=== PATIENT | female | born 1940 | race Caucasian/White ===

== ENCOUNTER 2016-11-18 10:43 | Outpatient (CLI) | payer MEDICARE, OTHER ==
[2016-11-18 11:14] LABS: BASOPHILS # (AUTO) 0.1 10^3/uL (0.0-0.1); BASOPHILS % (AUTO) 0.8 %; EOSINOPHILS # (AUTO) 0.4 10^3/uL (0.0-0.7); EOSINOPHILS % (AUTO) 4.8 %; HCT - HEMATOCRIT 37.8 % (37.0-47.0); HGB - HEMOGLOBIN 12.7 g/dL (12.0-16.0); LYMPHOCYTES % (AUTO) 25.1 %; MEAN CORPUSCULAR HGB CONC 33.5 g/dL (32.0-36.0); MEAN CORPUSCULAR VOLUME 86.5 fL (81.0-99.0); MEAN PLATELET VOLUME 9.7 fL (7.9-10.8); MONOCYTES # (AUTO) 0.6 10^3/uL (0.0-1.0); MONOCYTES % (AUTO) 7.7 %; NEUTROPHILS # (AUTO) 4.8 10^3/uL (1.5-6.6); NEUTROPHILS % (AUTO) 61.6 %; RED BLOOD COUNT 4.37 10^6/uL (4.20-5.40); RED CELL DISTRIBUTION WIDTH 15.7 % (12.0-15.0); UNCORRECTED WHITE BLOOD COUNT 7.8 x10^3/uL; WHITE BLOOD COUNT 7.8 x10^3/uL (4.8-10.8)
[2016-11-18 11:39] LABS: HEMOGLOBIN A1C 0.68 g/dL
[2016-11-18 11:41] LABS: BILIRUBIN,TOTAL 0.4 mg/dL (0.2-1.0); BUN - BLOOD UREA NITROGEN 34 mg/dL (6-20); CALCIUM 9.3 mg/dL (8.5-10.3); CARBON DIOXIDE - CO2 23 mmol/L (21-32); CHLORIDE 108 mmol/L (101-111); CREATININE 1.2 mg/dL (0.4-1.0); GFR - MDRD 44 (>89); GLUCOSE 151 mg/dL (70-100); MAGNESIUM 1.6 mg/dL (1.7-2.8); POTASSIUM 4.5 mmol/L (3.5-5.0); SODIUM 141 mmol/L (135-145); TOTAL PROTEIN 6.8 g/dL (6.7-8.2)
[2016-11-18 11:42] LABS: ALBUMIN/GLOBULIN RATIO 1.3 (1.0-2.2); CHOL/HDL RATIO 5.5 (<4.4); CHOLESTEROL 153 mg/dL; HDL CHOLESTEROL 28 mg/dL; LDL/HDL RATIO 2.3 (<4.4); TRIGLYCERIDES 299 mg/dL; VLDL CHOLESTEROL 60 mg/dL
== END 2016-11-18 10:44 | disposition home or self-care (01) ==
LOC: LAB 10:43
PROVIDERS: ATTEND Internal Medicine
DX: E78.2 Mixed hyperlipidemia (principal); Z79.899 Other long term (current) drug therapy; E11.9 Type 2 diabetes mellitus without complications; E83.42 Hypomagnesemia; I25.10 Atherosclerotic heart disease of native coronary artery without angina pectoris; N18.9 Chronic kidney disease, unspecified; I12.9 Hypertensive chronic kidney disease with stage 1 through stage 4 chronic kidney disease, or unspecified chronic kidney disease
CPT/HCPCS: 36415; 80053; 80061; 82306; 83036; 83735; 85025

== ENCOUNTER 2017-02-01 13:03 | Outpatient (CLI) | payer MEDICARE, OTHER ==
[2017-02-01 13:50] LABS: ALBUMIN/GLOBULIN RATIO 1.2 (1.0-2.2); BILIRUBIN,TOTAL 0.7 mg/dL (0.2-1.0); BUN - BLOOD UREA NITROGEN 44 mg/dL (6-20); CALCIUM 9.6 mg/dL (8.5-10.3); CARBON DIOXIDE - CO2 23 mmol/L (21-32); CHLORIDE 106 mmol/L (101-111); CHOL/HDL RATIO 5.2 (<4.4); CHOLESTEROL 165 mg/dL; CREATININE 1.4 mg/dL (0.4-1.0); GFR - MDRD 37 (>89); GLUCOSE 110 mg/dL (70-100); HDL CHOLESTEROL 32 mg/dL; LDL/HDL RATIO 2.7 (<4.4); SODIUM 139 mmol/L (135-145); TOTAL PROTEIN 7.6 g/dL (6.7-8.2); TRIGLYCERIDES 237 mg/dL; VLDL CHOLESTEROL 47 mg/dL
[2017-02-01 13:51] LABS: POTASSIUM 4.6 mmol/L (3.5-5.0)
== END 2017-02-01 13:04 | disposition home or self-care (01) ==
LOC: LAB 13:03
PROVIDERS: ATTEND Internal Medicine Cardiovascular Disease
DX: I25.10 Atherosclerotic heart disease of native coronary artery without angina pectoris (principal); I42.9 Cardiomyopathy, unspecified; I10 Essential (primary) hypertension; E78.5 Hyperlipidemia, unspecified; E83.42 Hypomagnesemia
CPT/HCPCS: 36415; 80053; 80061

== ENCOUNTER 2017-02-07 11:58 | Outpatient (CLI) | payer MEDICARE, OTHER ==
[2017-02-07 12:49] LABS: GLUCOSE,FASTING 126 mg/dL (70-100); TRIGLYCERIDES 210 mg/dL
[2017-02-07 13:20] LABS: HEMOGLOBIN A1C 0.69 g/dL
== END 2017-02-07 11:59 | disposition home or self-care (01) ==
LOC: LAB 11:58
PROVIDERS: ATTEND Nurse Practitioner Primary Care
DX: E11.9 Type 2 diabetes mellitus without complications (principal); E78.1 Pure hyperglyceridemia
CPT/HCPCS: 36415; 82947; 83001; 83036; 84478

== ENCOUNTER 2017-03-21 09:13 | Outpatient (CLI) | payer MEDICARE, OTHER ==
--- NOTE | 2017-03-21 14:57 | DEXA Report ---
DEXA SCAN: 03/21/2017 CLINICAL INDICATION: Postmenopausal. TECHNIQUE: Dual energy x-ray absorptiometry (DXA) was performed on a [employer] system. Regions measured are the AP spine, femoral neck, and, if needed, forearm. COMPARISON: None. In accordance with the International Society for Clinical Densitometry (ISCD) guidelines, data from previous exams may be reanalyzed using current recommendations and techniques. This is done to allow a more accurate basis for comparison with the current study. FINDINGS: The data for the lumbar spine is as follows: REGION BMD (g/cm/cm) T-SCORE Z-SCORE L1 1.213 0.7 1.3 L2 1.355 1.3 1.9 L3 1.468 2.2 2.8 L4 1.490 2.4 3.0 TOTAL 1.385 1.7 2.3 NOTE: All evaluable vertebrae are used for classification. The data for the hip is as follows: REGION BMD (g/cm/cm) T-SCORE Z-SCORE Neck 1.133 0.7 1.9 TOTAL 1.221 1.7 2.6 NOTE: The femoral neck or total proximal femur, whichever is lowest, is used for classification. IMPRESSION: THE WHO CLASSIFICATION BASED ON THE INTERNATIONAL REFERENCE STANDARD IS NORMAL. THE FRACTURE RISK IS NOT INCREASED. RECOMMENDATION: Patients with diagnosis of osteoporosis or osteopenia should have regular bone mineral density assessment. For those eligible for Medicare, routine testing is allowed once every 2 years. Testing frequency can be increased for patients who have rapidly progressing disease or for those who are receiving medical therapy to restore bone mass. COMMENT: World Health Organization (WHO) definitions for osteoporosis and osteopenia: NORMAL BMD: T-score at -1.0 or higher, fracture risk is low. OSTEOPENIA BMD: T-score between -1.0 and -2.5, fracture risk is increased. OSTEOPOROSIS BMD: T-score at -2.5 or lower, fracture risk high. National Osteoporosis Foundation recommends: 1. Obtain adequate dietary calcium (at least 1200 mg per day) and vitamin D (400 -800 international units per day). 2. Participate, as appropriate, in regular weightbearing and muscle- strengthening exercise. 3. Avoid tobacco use and reduce alcohol and caffeine intake. 4. For more detailed information see the website at www.NOF.org. MTDD
== END 2017-03-21 09:14 | disposition home or self-care (01) ==
LOC: DI 09:13
PROVIDERS: ATTEND Nurse Practitioner Primary Care
DX: Z78.0 Asymptomatic menopausal state (principal)
CPT/HCPCS: 77080

== ENCOUNTER 2017-03-21 09:14 | Outpatient (CLI) | payer MEDICARE, OTHER ==
--- NOTE | 2017-03-22 18:49 | Mammography Report ---
DIGITAL SCREENING MAMMOGRAM: 03/21/2017 CLINICAL INDICATION: A 76-year-old with family history of breast cancer, history of benign right jesús ast biopsy for screening. COMPARISON: 02/2016, 01/2015, 01/2014, 01/2013, 01/2012, 01/2011, 01/2010 TECHNIQUE: Routine CC and MLO projections were obtained of the breasts. FINDINGS: The breasts again demonstrate heterogeneously dense fibroglandular parenchyma bilaterally. There is a shifting pattern of circumscribed nodules bilaterally, compatible with waxing and waning cysts. Coarse and punctate, typically benign calcifications are present. No suspicious masses, clu stered microcalcifications, or regions of architectural distortion are identified. IMPRESSION: BENIGN FINDINGS. RECOMMENDATION: Routine annual screening unless otherwise clinically indicated. BI-RADS category 2, benign findings. STANDARD QUALIFYING STATEMENTS 1. This examination was reviewed with the aid of Computer-Aided Detection (CAD). 2. A negative or benign imaging report should not delay biopsy if clinically suspicious findings are present. Consider surgical consultation if warranted. More than 5% of cancers are not identified by i maging. 3. Dense breasts may obscure an underlying neoplasm. JOB #: [id number] EXT JOB #:[id number]
== END 2017-03-21 09:15 | disposition home or self-care (01) ==
LOC: DI 09:14
PROVIDERS: ATTEND Nurse Practitioner Primary Care
DX: Z12.31 Encounter for screening mammogram for malignant neoplasm of breast (principal)
CPT/HCPCS: 77067

== ENCOUNTER 2017-04-03 13:20 | Outpatient (CLI) | payer MEDICARE, OTHER | END 2017-04-03 13:21 | disposition home or self-care (01) | LOC: SC 13:20 | PROVIDERS: ATTEND Nurse Practitioner Family | DX: G47.33 Obstructive sleep apnea (adult) (pediatric) (principal) | CPT/HCPCS: 99214; G0463; 99212 ==

== ENCOUNTER 2017-04-17 11:42 | Outpatient (CLI) | payer MEDICARE, OTHER ==
[2017-04-17 12:37] LABS: ALBUMIN/GLOBULIN RATIO 1.1 (1.0-2.2); BILIRUBIN,TOTAL 0.7 mg/dL (0.2-1.0); BUN - BLOOD UREA NITROGEN 36 mg/dL (6-20); CARBON DIOXIDE - CO2 23 mmol/L (21-32); CHLORIDE 106 mmol/L (101-111); CHOL/HDL RATIO 3.6 (<4.4); CHOLESTEROL 127 mg/dL; CREATININE 0.9 mg/dL (0.4-1.0); GFR - MDRD 61 (>89); GLUCOSE 115 mg/dL (70-100); HDL CHOLESTEROL 35 mg/dL; LDL/HDL RATIO 1.8 (<4.4); POTASSIUM 3.9 mmol/L (3.5-5.0); SODIUM 140 mmol/L (135-145); TOTAL PROTEIN 7.5 g/dL (6.7-8.2); TRIGLYCERIDES 152 mg/dL; VLDL CHOLESTEROL 30 mg/dL
== END 2017-04-17 11:43 | disposition home or self-care (01) ==
LOC: LAB 11:42
PROVIDERS: ATTEND Internal Medicine Cardiovascular Disease
DX: I25.10 Atherosclerotic heart disease of native coronary artery without angina pectoris (principal); I10 Essential (primary) hypertension; E78.5 Hyperlipidemia, unspecified
CPT/HCPCS: 36415; 80053; 80061

== ENCOUNTER 2017-06-25 08:10 | Emergency (ER) | payer MEDICARE, OTHER ==
[2017-06-25] MEDS ORDERED: HYDROcod/ACETAM 5/325 MG TABLET PO STA (08:48)
--- NOTE | 2017-06-25 08:50 | ED Physician Documentation ---
PD HPI HEENT - Stated complaint Stated Complaint: DENTAL PAIN - Chief complaint Chief Complaint: Heent - History obtained from History obtained from: Patient, Family - History of Present Illness Timing - onset: How many weeks ago (2) Timing - duration: Weeks (2) Timing - details: Gradual onset, Still present Location: Tooth Improves: Nothing Associated symptoms: Facial swelling. No: Fever, Congestion, Headache Similar symptoms before: Diagnosis (bad tooth) Recently seen: Other (root canal) - Additional information Additional information: 76-year-old female began to have a toothache in a tooth that she has a crown on about 2 weeks ago. About 1 week ago the pain dramatically increased she went to see her dentist was put on some antibiotic and 2 days ago she had a root canal done on this tooth. She has not had relief of her pain in her pain feels worse. Review of Systems Constitutional: denies: Fever Eyes: denies: Decreased vision Ears: denies: Ear pain Nose: denies: Rhinorrhea / runny nose, Congestion Throat: reports: Dental pain / toothache Cardiac: denies: Chest pain / pressure, Palpitations Respiratory: denies: Dyspnea, Cough GI: denies: Abdominal Pain, Nausea, Vomiting, Constipation, Diarrhea : denies: Dysuria Musculoskeletal: denies: Neck pain, Back pain, Extremity pain Neurologic: denies: Generalized weakness, Focal weakness, Numbness PD PAST MEDICAL HISTORY - Past Medical History Cardiovascular: Hypertension, High cholesterol, Coronary artery disease, Deep vein thrombosis, Angina, Other Respiratory: Asthma, Pneumonia, Sleep apnea Endocrine/Autoimmune: Type 2 diabetes GI: GERD, Hiatal hernia : Incontinence HEENT: Chronic vision loss Psych: Depression Musculoskeletal: Osteoarthritis, Fibromyalgia, Chronic back pain Derm: None - Past Surgical History Past Surgical History: Yes General: Cholecystectomy, Appendectomy, Colonoscopy, EGD Cardiovascular: Coronary stent HEENT: Cataracts - Present Medications Home Medications: Ambulatory Orders Medication Instructions Recorded Confirmed Aspirin [Aspir 81] 81 mg ORAL DAILY 03/25/14 06/25/17 Atenolol [Tenormin] 50 mg ORAL BID 03/25/14 06/25/17 Fesoterodine Fumarate [Toviaz] 4 mg PO DAILY 03/25/14 06/25/17 Furosemide [Lasix] 40 mg ORAL DAILY 03/25/14 06/25/17 Insulin Glargine [Lantus] 65 units SUBQ BID 03/25/14 06/25/17 Insulin Lispro [Humalog] 15 - 25 units SUBQ TIDWM 03/25/14 06/25/17 Losartan [Cozaar] 25 mg ORAL DAILY 03/25/14 06/25/17 Montelukast [Singulair] 10 mg ORAL DAILY 03/25/14 06/25/17 Pantoprazole Sodium 40 mg ORAL DAILY 03/25/14 06/25/17 Rosuvastatin Calcium [Crestor] 20 mg ORAL DAILY 03/25/14 06/25/17 Sertraline [Zoloft] 50 mg ORAL DAILY 03/25/14 06/25/17 raNITIdine [Zantac] 150 mg ORAL DAILY 03/25/14 06/25/17 LORazepam [Lorazepam] 1 mg PO DAILY 03/26/14 06/25/17 Hydrocodone/Acetaminophen [[place] 1 each PO Q6H PRN #25 tablet 10/07/14 06/25/17 5-325 Tablet] Methocarbamol [Robaxin] 500 mg PO Q6H PRN #25 tablet 10/07/14 06/25/17 Mirabegron [Myrbetriq] 50 tab PO DAILY 10/07/14 06/25/17 Naproxen 500 mg PO BID #14 tablet. 10/07/14 06/25/17 Carvedilol [Coreg] 12.5 mg PO BID 09/02/15 06/25/17 Clindamycin [Cleocin] 300 mg PO Q6H 7 Days #56 capsule 06/25/17 HYDROcod/ACETAM 5/325 [[place] 5/325] 1 - 2 ea PO Q6H PRN #15 tablet 06/25/17 - Allergies Allergies/Adverse Reactions: Allergies Allergy/AdvReac Type Severity Reaction Status Date / Time amoxicillin trihydrate * Allergy Emesis Verified 06/25/17 08:16 [From Augmentin] clopidogrel bisulfate * Allergy Itching Verified 06/25/17 08:16 [From Plavix] iodine Allergy Itching Verified 06/25/17 08:16 meperidine HCl * Allergy Itching Verified 06/25/17 08:16 [From Demerol] oxybutynin Allergy Itching Verified 06/25/17 08:16 potassium clavulanate * Allergy Itching Verified 06/25/17 08:16 [From Augmentin] rosiglitazone maleate * Allergy Itching Verified 06/25/17 08:16 [From Avandia] exenatide [From [place]etta] AdvReac Unknown Verified 06/25/17 08:16 metformin AdvReac Unknown Verified 06/25/17 08:16 - Social History Does the pt smoke?: No Smoking Status: Never smoker Does the pt drink ETOH?: Yes Does the pt have substance abuse?: No PD ED PE NORMAL - Vitals Vital signs reviewed: Yes (Hypertensive) - General General: Alert and oriented X 3, No acute distress, Well developed/nourished - HEENT HEENT: Atraumatic, PERRL, EOMI, Other (Over tooth #7 anteriorly there is swelling to the gingiva without drainage. The area is tender as well. The backside of the tooth shows a portion of amalgam with a central drilled that does not show any drainage.) - Neck Neck: Supple, no meningeal sign - Respiratory Respiratory: No respiratory distress - Derm Derm: Normal color, Warm and dry, No rash - Extremities Extremities: No deformity, No edema - Neuro Neuro: Alert and oriented X 3, No motor deficit, No sensory deficit, Normal speech Eye Opening: Spontaneous Motor: Obeys Commands Verbal: Oriented GCS Score: 15 - Psych Psych: Normal mood, Normal affect PD ED PE EXPANDED - HEENT HEENT Visual: 1 - swelling, tenderness Results - Vitals Vitals: Vital Signs - 24 hr 06/25/17 08:12 Temperature 36.2 C L Heart Rate 68 Respiratory 20 Rate Blood Pressure 167/73 H O2 Saturation 96 Oxygen O2 Source Room air PD MEDICAL DECISION MAKING - ED course Complexity details: considered differential, d/w patient, d/w family ED course: 76-year-old female with a dental infection is not improving with amoxicillin. She is having significant pain does not have adequate pain relief. Here in the emergency department she is given 5 mg of hydrocodone and we will place her on some clindamycin. Departure - Departure Disposition: 01 Home, Self Care Clinical Impression: Dental infection Condition: Stable Instructions: ED Tooth Pain Follow-Up: Renato Esqueda ARNP [Primary Care Provider] - Prescriptions: Clindamycin [Cleocin] 300 mg PO Q6H 7 Days #56 capsule HYDROcod/ACETAM 5/325 [[place] 5/325] 1 - 2 ea PO Q6H PRN #15 tablet PRN Reason: Pain
[2017-06-25 09:12] VITALS: BP 156/72
== END 2017-06-25 09:08 | disposition home or self-care (01) ==
LOC: ED 08:10
DX: K04.7 Periapical abscess without sinus (principal); I10 Essential (primary) hypertension; E11.9 Type 2 diabetes mellitus without complications; Z79.4 Long term (current) use of insulin; I25.10 Atherosclerotic heart disease of native coronary artery without angina pectoris; J45.909 Unspecified asthma, uncomplicated; M79.7 Fibromyalgia; K21.9 Gastro-esophageal reflux disease without esophagitis; M19.90 Unspecified osteoarthritis, unspecified site; Z79.82 Long term (current) use of aspirin; Z86.718 Personal history of other venous thrombosis and embolism
CPT/HCPCS: 99283; A9270

== ENCOUNTER 2017-07-07 14:03 | Outpatient (CLI) | payer MEDICARE, OTHER ==
--- NOTE | 2017-07-11 15:17 | XRAY Report ---
DATE OF SERVICE: 07/07/2017 TWO VIEW THORACIC SPINE: 07/07/2017 CLINICAL INDICATION: Severe pain. FINDINGS: Frontal, lateral views of the thoracic spine are compared to previous films of 05/01/2015. Moderate degenerative disk disease is stable. There is no evidence of interval fracture. No paraspi nal hematoma is seen. IMPRESSION: Stable moderate degenerative disk disease. TD: 07/07/2017 22:48
--- NOTE | 2017-07-11 15:17 | XRAY Report ---
DATE OF SERVICE: 07/07/2017 THREE VIEW LUMBAR SPINE:: 07/07/2017 CLINICAL INDICATION: Pain. FINDINGS: AP, lateral, cone-down views of the lumbar spine demonstrate moderate degenerative disk an d facet disease. Alignment is normal. There is no evidence of fracture or subluxation. The bowel gas patte rn is unremarkable. Surgical clips of cholecystectomy are incidentally noted. IMPRESSION: Moderate degenerative disk and facet disease. No evidence of fracture. TD: 07/07/2017 22:49
--- NOTE | 2017-07-11 15:18 | XRAY Report ---
DATE OF SERVICE: 07/07/2017 THREE VIEW CERVICAL SPINE: 07/07/2017 CLINICAL INDICATION: Severe pain. COMPARISON: 05/01/2015 FINDINGS: AP, lateral, odontoid views of the cervical spine demonstrate stable degenerative disk and facet disease. There is no evidence of acute fracture. The prevertebral soft tissues are unremarkable. IMPRESSION: Stable moderate degenerative changes. TD: 07/07/2017 22:46
== END 2017-07-07 14:04 | disposition home or self-care (01) ==
LOC: DI 14:03
PROVIDERS: ATTEND Chiropractor
DX: M51.36 Other intervertebral disc degeneration, lumbar region (principal); M47.896 Other spondylosis, lumbar region; M51.34 Other intervertebral disc degeneration, thoracic region; M50.30 Other cervical disc degeneration, unspecified cervical region; M47.892 Other spondylosis, cervical region
CPT/HCPCS: 72040; 72070; 72100

== ENCOUNTER 2017-08-24 11:42 | Outpatient (CLI) | payer MEDICARE, OTHER ==
[2017-08-24 12:22] LABS: HB2 TOTAL 14.2 g/dL; HEMOGLOBIN A1C 0.7 g/dL; HEMOGLOBIN A1C % 6.7 % (4.6-6.2)
== END 2017-08-24 11:43 | disposition home or self-care (01) ==
LOC: LAB 11:42
PROVIDERS: ATTEND Nurse Practitioner Primary Care
DX: E11.9 Type 2 diabetes mellitus without complications (principal)
CPT/HCPCS: 36415; 83036

== ENCOUNTER 2017-10-20 16:36 | Outpatient (CLI) | payer MEDICARE, OTHER ==
--- NOTE | 2017-10-21 17:13 | MRI Report ---
EXAM: MRI LUMBAR SPINE WITHOUT CONTRAST COMPARISON: Conventional radiographs, totaling 03/29/2017. CLINICAL HISTORY: L4-L5 radicular pain.Low-back pain radiating down the left leg, no numbness. TECHNIQUE: Multiplanar multisequence imaging is performed through the lumbar spine without contrast. FINDINGS: Evaluation of alignment shows 6 mm retrolisthesis L5 on S1. Conus terminates at the upper aspect of L1, conus is unremarkable. No pathologic marrow replacement is identified. No retroperitoneal adenopathy or masses. Visualized abdominal aorta is of normal caliber. 3 cm right-sided exophytic renal cyst (601, 23) is incompletely characterized, follow-up renal ultras ound is suggested. Dorsal soft tissues are relatively unremarkable. Disk Levels: L1-L2. No significant canal or foraminal stenosis. L2-L3: Mild disk height loss. Mild facet arthropathy. No significant canal or foraminal stenosis. L3-L4: Moderate disk height loss. At least moderate bilateral facet arthropathy. No significant tim inal stenosis. Minimal canal stenosis. There is left-sided asymmetric far lateral disk and osteophyte (601, 17), does displace the exited left nerve root. L4-L5: Moderate disk height loss. Mild to moderate bilateral facet arthropathy. Mild right and minima l left foraminal stenosis. No significant canal stenosis. L5-S1: Moderate to severe disk height loss. Mild to moderate bilateral facet arthropathy. Central dis k protrusion (601, 4) does contact but not displace or compress the passing S1 nerve roots, left grea ter than right. Foraminal stenosis is minimal on the right, minimal on the left. IMPRESSION: No high-grade canal or foraminal stenosis at any level. Central disk protrusion at L5-S1 does not cause significant canal stenosis, but does contact the pass ing S1 nerve roots, left greater than right. Referring Provider Line: [phone] SITE ID: [id number]
== END 2017-10-20 16:37 | disposition home or self-care (01) ==
LOC: DI 16:36
PROVIDERS: ATTEND Orthopaedic Surgery
DX: M51.36 Other intervertebral disc degeneration, lumbar region (principal); M47.896 Other spondylosis, lumbar region; M51.27 Other intervertebral disc displacement, lumbosacral region
CPT/HCPCS: 72148

== ENCOUNTER 2018-02-25 14:28 | Emergency (ER) | payer MEDICARE, OTHER ==
[2018-02-25 15:30] LABS: BASOPHILS # (AUTO) 0.1 10^3/uL (0.0-0.1); BASOPHILS % (AUTO) 0.6 %; EOSINOPHILS # (AUTO) 0.2 10^3/uL (0.0-0.7); EOSINOPHILS % (AUTO) 2.3 %; HGB - HEMOGLOBIN 11.9 g/dL (12.0-16.0); LYMPHOCYTES # (AUTO) 1.7 10^3/uL (1.5-3.5); LYMPHOCYTES % (AUTO) 17.4 %; MEAN CORPUSCULAR HEMOGLOBIN 29.5 pg (27.0-31.0); MEAN CORPUSCULAR HGB CONC 33.7 g/dL (32.0-36.0); MEAN CORPUSCULAR VOLUME 87.7 fL (81.0-99.0); MEAN PLATELET VOLUME 8.6 fL (7.9-10.8); MONOCYTES # (AUTO) 0.7 10^3/uL (0.0-1.0); MONOCYTES % (AUTO) 6.9 %; NEUTROPHILS # (AUTO) 6.9 10^3/uL (1.5-6.6); NEUTROPHILS % (AUTO) 72.8 %; PLT - PLATELET COUNT 264 10^3/uL (130-450); RED BLOOD COUNT 4.03 10^6/uL (4.20-5.40); RED CELL DISTRIBUTION WIDTH 15.9 % (12.0-15.0); WHITE BLOOD COUNT 9.5 x10^3/uL (4.8-10.8)
--- NOTE | 2018-02-25 15:32 | XRAY Report ---
Procedure Date: 02/25/2018 Accession Number: [id number] / [id number] Procedure: XR - Chest 1 View X-Ray CPT Code: 68641 FULL RESULT: EXAM: CHEST RADIOGRAPHY. EXAM DATE: 02/25/2018 03:15 PM. CLINICAL HISTORY: Shortness of air, postoperative. COMPARISON: 09/15/2014. TECHNIQUE: 1 view. FINDINGS: Lungs/Pleura: Mild blunting of the left costophrenic angle. Mildly elevated right hemidiaphragm is unchanged. No consolidation or pneumothorax. Mediastinum: Mild cardiac enlargement. Other: None. IMPRESSION: 1. Mild cardiac enlargement. 2. Probable small left pleural effusion noted. 3. No consolidation, edema or pneumothorax. RADIA
[2018-02-25] MEDS ORDERED: DEXAMETHASONE 10 MG/ML VIAL IVP STA (15:34)
[2018-02-25] MEDS ORDERED: diphenhydrAMINE INJ 50 MG/ML VIAL IVP STA (15:34)
--- NOTE | 2018-02-25 15:38 | ED Physician Documentation ---
History of Present Illness - Stated complaint Stated Complaint: POST OP SOA - Chief complaint Chief Complaint: Resp - History obtained from History obtained from: Patient, Family - History of Present Illness Pain level max: 0 Pain level now: 0 Improved by: CPAP, lasix Worsened by: lying flat, walking. - Additonal information Additional information: Patient is a 77-year-old female who presents to the emergency department complaining of increasing shortness of breath over the past few days. She is one-week status post a L4-5 left hemilaminectomy and L5-S1 interbody fusion. This was performed with Dr. Brumfield at [facility]. She states she took an extra dose of Lasix and her urination did increase, but she is still feeling short of breath. States she feels better with her CPAP on. Does not wear oxygen at home usually. Has not had any fevers. No calf pain. Review of Systems Ten Systems: 10 systems reviewed and negative Constitutional: denies: Fever, Chills Ears: denies: Ear pain Nose: denies: Rhinorrhea / runny nose, Congestion Throat: denies: Sore throat Cardiac: denies: Chest pain / pressure GI: denies: Nausea, Vomiting, Diarrhea Skin: denies: Rash Musculoskeletal: reports: Back pain. denies: Neck pain Neurologic: denies: Headache PD PAST MEDICAL HISTORY - Past Medical History Cardiovascular: Hypertension, High cholesterol, Coronary artery disease, Deep vein thrombosis, Angina, Other Respiratory: Asthma, Pneumonia, Sleep apnea Endocrine/Autoimmune: Type 2 diabetes GI: GERD, Hiatal hernia : Incontinence HEENT: Chronic vision loss Psych: Depression Musculoskeletal: Osteoarthritis, Fibromyalgia, Chronic back pain Derm: None - Past Surgical History Past Surgical History: Yes General: Cholecystectomy, Appendectomy, Colonoscopy, EGD Cardiovascular: Coronary stent HEENT: Cataracts - Present Medications Home Medications: Ambulatory Orders Medication Instructions Recorded Confirmed Aspirin [Aspir 81] 81 mg ORAL DAILY 03/25/14 06/25/17 Atenolol [Tenormin] 50 mg ORAL BID 03/25/14 06/25/17 Fesoterodine Fumarate [Toviaz] 4 mg PO DAILY 03/25/14 06/25/17 Furosemide [Lasix] 40 mg ORAL DAILY 03/25/14 06/25/17 Insulin Glargine [Lantus] 65 units SUBQ BID 03/25/14 06/25/17 Insulin Lispro [Humalog] 15 - 25 units SUBQ TIDWM 03/25/14 06/25/17 Losartan [Cozaar] 25 mg ORAL DAILY 03/25/14 06/25/17 Montelukast [Singulair] 10 mg ORAL DAILY 03/25/14 06/25/17 Pantoprazole Sodium 40 mg ORAL DAILY 03/25/14 06/25/17 Rosuvastatin Calcium [Crestor] 20 mg ORAL DAILY 03/25/14 06/25/17 Sertraline [Zoloft] 50 mg ORAL DAILY 03/25/14 06/25/17 raNITIdine [Zantac] 150 mg ORAL DAILY 03/25/14 06/25/17 LORazepam [Lorazepam] 1 mg PO DAILY 03/26/14 06/25/17 Hydrocodone/Acetaminophen [[place] 1 each PO Q6H PRN #25 tablet 10/07/14 06/25/17 5-325 Tablet] Methocarbamol [Robaxin] 500 mg PO Q6H PRN #25 tablet 10/07/14 06/25/17 Mirabegron [Myrbetriq] 50 tab PO DAILY 10/07/14 06/25/17 Naproxen 500 mg PO BID #14 tablet. 10/07/14 06/25/17 Carvedilol [Coreg] 12.5 mg PO BID 09/02/15 06/25/17 Clindamycin [Cleocin] 300 mg PO Q6H 7 Days #56 capsule 06/25/17 HYDROcod/ACETAM 5/325 [[place] 5/325] 1 - 2 ea PO Q6H PRN #15 tablet 06/25/17 Rivaroxaban [Xarelto] 15 mg PO BID #42 tablet 02/25/18 - Allergies Allergies/Adverse Reactions: Allergies Allergy/AdvReac Type Severity Reaction Status Date / Time amoxicillin trihydrate * Allergy Emesis Verified 06/25/17 08:16 [From Augmentin] clopidogrel bisulfate * Allergy Itching Verified 06/25/17 08:16 [From Plavix] iodine Allergy Itching Verified 06/25/17 08:16 meperidine HCl * Allergy Itching Verified 06/25/17 08:16 [From Demerol] oxybutynin Allergy Itching Verified 06/25/17 08:16 potassium clavulanate * Allergy Itching Verified 06/25/17 08:16 [From Augmentin] rosiglitazone maleate * Allergy Itching Verified 06/25/17 08:16 [From Avandia] exenatide [From Byetta] AdvReac Unknown Verified 06/25/17 08:16 metformin AdvReac Unknown Verified 02/25/18 15:01 - Social History Does the pt smoke?: No Smoking Status: Never smoker Does the pt drink ETOH?: Yes Does the pt have substance abuse?: No PD ED PE NORMAL - Vitals Vital signs reviewed: Yes - General General: Alert and oriented X 3, No acute distress, Other (obese female) - HEENT HEENT: PERRL, Moist mucous membranes - Neck Neck: Supple, no meningeal sign - Cardiac Cardiac: RRR, Strong equal pulses - Respiratory Respiratory: No respiratory distress, Other (mild rhonchi B) - Abdomen Abdomen: Soft, Non tender, Non distended - Back Back: Other (dressing in place, clean. No signs of infection) - Derm Derm: Warm and dry - Extremities Extremities: Other (2+ B LE edema) - Neuro Neuro: Alert and oriented X 3 - Psych Psych: Normal mood, Normal affect Results - Vitals Vitals: Vital Signs - 24 hr 02/25/18 02/25/18 14:56 17:50 Temperature 36.8 C Heart Rate 62 69 Respiratory 18 14 Rate Blood Pressure 142/73 H 157/72 H O2 Saturation 94 95 Oxygen O2 Source Room air - EKG (time done) 1526 Rate: Rate (enter#) (66) Rhythm: NSR, Other (PVC) [place]: Normal Intervals: 1st degree AVB QRS: Normal Ischemia: Non specific changes - Labs Labs: Laboratory Tests 02/25/18 02/25/18 02/25/18 15:24 15:24 15:24 WBC 9.5 RBC 4.03 L Hgb 11.9 L Hct 35.4 L MCV 87.7 MCH 29.5 MCHC 33.7 RDW 15.9 H Plt Count 264 MPV 8.6 Neut # (Auto) 6.9 H Lymph # (Auto) 1.7 [place] # (Auto) 0.7 Eos # (Auto) 0.2 Baso # (Auto) 0.1 Absolute Nucleated RBC 0.01 Nucleated RBC % 0.1 Sodium 139 Potassium 4.2 Chloride 99 L Carbon Dioxide 29 Anion Gap 11.0 BUN 29 H Creatinine 0.9 Estimated GFR (MDRD) 61 L Glucose 129 H Calcium 9.5 Total Bilirubin 0.7 AST 25 ALT 13 Alkaline Phosphatase 79 Troponin I B-Natriuretic Peptide 388 H Total Protein 6.8 Albumin 3.2 Globulin 3.6 Albumin/Globulin Ratio 0.9 L Lipase 26 02/25/18 15:25 WBC RBC Hgb Hct MCV MCH MCHC RDW Plt Count MPV Neut # (Auto) Lymph # (Auto) [place] # (Auto) Eos # (Auto) Baso # (Auto) Absolute Nucleated RBC Nucleated RBC % Sodium Potassium Chloride Carbon Dioxide Anion Gap BUN Creatinine Estimated GFR (MDRD) Glucose Calcium Total Bilirubin AST ALT Alkaline Phosphatase Troponin I < 0.04 B-Natriuretic Peptide Total Protein Albumin Globulin Albumin/Globulin Ratio Lipase - Rads (name of study) cxr Radiology: Prelim report reviewed, EMP read contemporaneously, See rad report ( Mild cardiac enlargement. Probable small left pleural effusion noted. No consolidation edema or pneumothorax.) ctpa Radiology: Prelim report reviewed, EMP read contemporaneously, See rad report ( Single small right lower lobe segmental branch pulmonary embolism. Small bilateral pleural effusions. Small hiatal hernia) PD MEDICAL DECISION MAKING - ED course Complexity details: reviewed results, re-evaluated patient, considered differential, d/w patient, d/w family ED course: Patient is a 77-year-old female who presents to the emergency department with shortness of air after recent surgery on her lumbar spine. She does have CHF and was given an extra dose of Lasix. Also found to have a single small pulmonary embolism in the right lower lobe. No right heart strain. No hypoxia. No respiratory distress. Discussed with the patient and family and we will start her on Xarelto and have her follow-up as an outpatient with her doctor. She is well-appearing, nontoxic. Discussed risks and benefits of Xarelto versus Lovenox bridging with warfarin. Patient and family counseled regarding signs and symptoms for which I believe and urgent re-evaluation would be necessary. Patient with good understanding of and agreement to plan and is comfortable going home at this time This document was made in part using voice recognition software. While efforts are made to proofread this document, sound alike and grammatical errors may occur. - Sepsis Event Vital Signs: Vital Signs - 24 hr 02/25/18 02/25/18 14:56 17:50 Temperature 36.8 C Heart Rate 62 69 Respiratory 18 14 Rate Blood Pressure 142/73 H 157/72 H O2 Saturation 94 95 Oxygen O2 Source Room air Departure - Departure Disposition: 01 Home, Self Care Clinical Impression: Pulmonary embolism Qualifiers: Pulmonary embolism type: other Chronicity: acute Acute cor pulmonale presence: without acute cor pulmonale Qualified Code(s): I26.99 - Other pulmonary embolism without acute cor pulmonale CHF (congestive heart failure) Qualifiers: Heart failure type: unspecified Heart failure chronicity: acute on chronic Qualified Code(s): I50.9 - Heart failure, unspecified Condition: Good Instructions: Embolism Pulmonary Dc, ED CHF General Follow-Up: Renato Esqueda ARNP [Primary Care Provider] - Within 1 week Prescriptions: Rivaroxaban [Xarelto] 15 mg PO BID #42 tablet Comments: You have been started on Xarelto, 15 mg by mouth twice a day for the first 21 days. After this time you will be on 20 mg once daily. You will likely need to be on this for 6 months. Return if you worsen. Return especially if you notice any signs of bleeding, fall and hit your head are involved in a car accident. You should also avoid nonsteroidal anti-inflammatory medication such as Motrin and Aleve. Discharge Date/Time: 02/25/18 18:00
[2018-02-25 15:39] LABS: ALBUMIN 3.2 g/dL (3.2-5.5); ALBUMIN/GLOBULIN RATIO 0.9 (1.0-2.2); BILIRUBIN,TOTAL 0.7 mg/dL (0.2-1.0); CALCIUM 9.5 mg/dL (8.5-10.3); CREATININE 0.9 mg/dL (0.4-1.0); TOTAL PROTEIN 6.8 g/dL (6.7-8.2)
[2018-02-25] MEDS ORDERED: IOPAMIDOL-300 100 ML VIAL ONE (15:56)
[2018-02-25] MEDS ORDERED: IOPAMIDOL-300 100 ML VIAL IVP ONE (16:50)
--- NOTE | 2018-02-25 17:21 | CT Report ---
Procedure Date: 02/25/2018 Accession Number: [id number] / [id number] Procedure: CT - Chest Angio (PE) CPT Code: FULL RESULT: EXAM: CT ANGIOGRAM CHEST EXAM DATE: 02/25/2018 05:08 PM. CLINICAL HISTORY: Post op dyspnea, pt premedicated. COMPARISON: None. TECHNIQUE: Routine helical imaging was performed through the chest in the pulmonary arterial phase. IV Contrast: ISOVUE 300 80mL. Reconstructions: Coronal 3-D MIP reconstructions.Sagittal and coronal. In accordance with CT protocol optimization, one or more of the following dose reduction techniques were utilized for this exam: automated exposure control, adjustment of mA and/or KV based on patient size, or use of iterative reconstructive technique. FINDINGS: Pulmonary Arteries: Diagnostic quality: Adequate through the segmental arteries. There is a single right lower lobe segmental pulmonary artery filling defect. No other emboli seen. RV/LV is within normal limits. There is no interventricular septal bowing. There is no reflux of contrast material in the IVC. Lungs/Pleura: Small bilateral pleural effusions. Mediastinum: Normal. No cardiac enlargement or adenopathy. Thoracic Aorta: Unremarkable. Upper Abdomen: The gallbladder has been removed. Other: Small hiatal hernia. IMPRESSION: 1. Single small, right lower lobe segmental branch pulmonary embolism. 2. Small bilateral pleural effusions. 3. Small hiatal hernia. RADIA
[2018-02-25] MEDS ORDERED: FUROSEMIDE 20 MG/2 ML VIAL IVP STA (17:31)
[2018-02-25] MEDS ORDERED: RIVAROXABAN 15 MG TABLET PO STA (17:31)
[2018-02-25 17:51] VITALS: BP 157/72
== END 2018-02-25 18:00 | disposition home or self-care (01) ==
LOC: ED 14:28
DX: I26.99 Other pulmonary embolism without acute cor pulmonale (principal); I50.9 Heart failure, unspecified; E11.9 Type 2 diabetes mellitus without complications; I44.0 Atrioventricular block, first degree; Z79.82 Long term (current) use of aspirin; Z79.4 Long term (current) use of insulin
CPT/HCPCS: 36415; 71045; 71275; 80053; 83690; 83880; 84484; 85025; 93005; 96374; 96375; 99283; 99284; A9270; J1200; Q9967

== ENCOUNTER 2018-03-02 10:52 | Outpatient (CLI) | payer MEDICARE, OTHER ==
[2018-03-02 11:42] LABS: BASOPHILS % (AUTO) 0.4 %; EOSINOPHILS # (AUTO) 0.4 10^3/uL (0.0-0.7); EOSINOPHILS % (AUTO) 4.1 %; HGB - HEMOGLOBIN 12.7 g/dL (12.0-16.0); LYMPHOCYTES # (AUTO) 2.3 10^3/uL (1.5-3.5); LYMPHOCYTES % (AUTO) 24.5 %; MEAN CORPUSCULAR HEMOGLOBIN 29.6 pg (27.0-31.0); MEAN CORPUSCULAR HGB CONC 33.8 g/dL (32.0-36.0); MEAN CORPUSCULAR VOLUME 87.7 fL (81.0-99.0); MEAN PLATELET VOLUME 8.3 fL (7.9-10.8); MONOCYTES # (AUTO) 0.6 10^3/uL (0.0-1.0); MONOCYTES % (AUTO) 6.4 %; NEUTROPHILS % (AUTO) 64.6 %; PLT - PLATELET COUNT 297 10^3/uL (130-450); RED BLOOD COUNT 4.29 10^6/uL (4.20-5.40); RED CELL DISTRIBUTION WIDTH 15.8 % (12.0-15.0); WHITE BLOOD COUNT 9.3 x10^3/uL (4.8-10.8)
[2018-03-02 12:08] LABS: ALBUMIN 3.3 g/dL (3.2-5.5); ALKALINE PHOSPHATASE 80 IU/L (42-121); ALT ALANINE AMINOTRANSFERASE 11 IU/L (10-60); AST ASPARTATE AMINOTRANSFERASE 22 IU/L (10-42); BILIRUBIN,TOTAL 0.4 mg/dL (0.2-1.0); BUN - BLOOD UREA NITROGEN 22 mg/dL (6-20); CALCIUM 8.8 mg/dL (8.5-10.3); CARBON DIOXIDE - CO2 25 mmol/L (21-32); CHLORIDE 106 mmol/L (101-111); CHOLESTEROL 131 mg/dL; GFR - MDRD 54 (>89); GLUCOSE 117 mg/dL (70-100); HDL CHOLESTEROL 33 mg/dL; LDL CHOLESTEROL,CALCULATED 63 mg/dL; LDL/HDL RATIO 1.9 (<4.4); MAGNESIUM 1.6 mg/dL (1.7-2.8); SODIUM 140 mmol/L (135-145); TOTAL PROTEIN 6.5 g/dL (6.7-8.2); VLDL CHOLESTEROL 35 mg/dL
[2018-03-02 13:29] LABS: HB2 TOTAL 13.5 g/dL; HEMOGLOBIN A1C 0.63 g/dL; HEMOGLOBIN A1C % 6.4 % (4.6-6.2)
== END 2018-03-02 10:53 | disposition home or self-care (01) ==
LOC: LAB 10:52
PROVIDERS: ATTEND Nurse Practitioner Primary Care
DX: E78.5 Hyperlipidemia, unspecified (principal); E11.22 Type 2 diabetes mellitus with diabetic chronic kidney disease; I12.9 Hypertensive chronic kidney disease with stage 1 through stage 4 chronic kidney disease, or unspecified chronic kidney disease; N18.2 Chronic kidney disease, stage 2 (mild); I25.10 Atherosclerotic heart disease of native coronary artery without angina pectoris; E83.42 Hypomagnesemia
CPT/HCPCS: 36415; 80053; 80061; 82306; 83036; 83721; 83735; 84443; 85025

== ENCOUNTER 2018-03-26 12:50 | Outpatient (CLI) | payer MEDICARE, OTHER ==
--- NOTE | 2018-03-28 10:25 | Mammography Report ---
Reason: SCREENING MAMMO Procedure Date: 03/26/2018 Accession Number: [id number] / [id number] Procedure: DAPHNE - Screening Mammo Dig Bilat CPT Code: FULL RESULT: EXAM: Screening Mammo Dig Bilat DATE: 03/26/2018 1:22 PM CLINICAL HISTORY: 77-year-old female with history of breast biopsy and family history of breast cancer in the mother at age 86, sisters at age 42 and 33, an aunt at age 89, and a cousin at age 65. TECHNIQUE: Bilateral CC and MLO views were obtained. COMPARISON: 03/21/2017, 02/25/2016, 01/08/2015, 01/17/2014. FINDINGS: The breasts demonstrate heterogeneously dense fibroglandular parenchyma bilaterally. There are large rodlike calcifications as well as coarse calcifications in both breasts which are typically benign. Stable typically benign appearing intramammary lymph nodes are seen bilaterally. No suspicious masses, clustered microcalcifications, or regions of architectural distortion are identified. IMPRESSION: Benign findings RECOMMENDATION: Routine annual screening unless otherwise clinically indicated. BIRADS CATEGORY 2: Benign findings STANDARD QUALIFYING STATEMENTS: 1. This examination was reviewed without the aid of Computer-Aided Detection (CAD). 2. A negative or benign imaging report should not delay biopsy if clinically suspicious findings are present. Consider surgical consultation if warrented. More than 5% of cancers are not identified by imaging. 3. Dense breasts may obscure an underlying neoplasm.
== END 2018-03-26 12:51 | disposition home or self-care (01) ==
LOC: DI 12:50
PROVIDERS: ATTEND Nurse Practitioner Primary Care
DX: Z12.31 Encounter for screening mammogram for malignant neoplasm of breast (principal); Z80.3 Family history of malignant neoplasm of breast
CPT/HCPCS: 77067

== ENCOUNTER 2018-04-09 14:16 | Outpatient (CLI) | payer MEDICARE, OTHER | END 2018-04-09 14:17 | disposition home or self-care (01) | LOC: SC 14:16 | PROVIDERS: ATTEND Internal Medicine Pulmonary Disease | DX: G47.33 Obstructive sleep apnea (adult) (pediatric) (principal) | CPT/HCPCS: 99213; G0463; 99212 ==

== ENCOUNTER 2018-08-25 11:22 | Outpatient (CLI) | payer MEDICARE, OTHER ==
[2018-08-25 12:00] LABS: HB2 TOTAL 14.4 g/dL; HEMOGLOBIN A1C 0.64 g/dL; HEMOGLOBIN A1C % 6.2 % (4.6-6.2)
== END 2018-08-25 11:23 | disposition home or self-care (01) ==
LOC: LAB 11:22
PROVIDERS: ATTEND Nurse Practitioner Primary Care
DX: E11.9 Type 2 diabetes mellitus without complications (principal)
CPT/HCPCS: 36415; 82043; 82947; 83036

== ENCOUNTER 2018-11-29 10:20 | Outpatient (CLI) | payer MEDICARE, OTHER ==
[2018-11-29 10:47] LABS: HGB - HEMOGLOBIN 12.5 g/dL (12.0-16.0); MEAN CORPUSCULAR HEMOGLOBIN 28.5 pg (27.0-31.0); MEAN CORPUSCULAR HGB CONC 32.8 g/dL (32.0-36.0); MEAN CORPUSCULAR VOLUME 86.7 fL (81.0-99.0); MEAN PLATELET VOLUME 8.5 fL (7.9-10.8); RED BLOOD COUNT 4.4 10^6/uL (4.20-5.40); RED CELL DISTRIBUTION WIDTH 15.6 % (12.0-15.0)
[2018-11-29 10:58] LABS: CALCIUM 9.3 mg/dL (8.5-10.3)
--- NOTE | 2018-11-29 11:45 | XRAY Report ---
Reason: R09.89, M54.5, J45.998, I50.9,COARSE RESPIRATORY Procedure Date: 11/29/2018 Accession Number: [id number] / [id number] Procedure: XR - Chest 2 View X-Ray CPT Code: 51041 FULL RESULT: EXAM: CHEST RADIOGRAPHY EXAM DATE: 11/29/2018 10:34 AM. CLINICAL HISTORY: Coarse respiratory sounds. COMPARISON: CHEST 1 VIEW 02/25/2018 3:05 PM. TECHNIQUE: 1 view. FINDINGS: Lungs/Pleura: Blunting of the left costophrenic angle is again seen, suggestive of a trace effusion. Aerated lungs are without lobar consolidation or suspicious mass detected. There is no pulmonary edema. There is no sizable pneumothorax. Mediastinum: Within exam limitations, the cardiomediastinal contour is stable, mild cardiomegaly. Other: The bones are qualitatively osteopenic; this limits evaluation for underlying fractures or masses. IMPRESSION: No acute airspace disease is detected, persistent trace left pleural effusion. RADIA
== END 2018-11-29 10:21 | disposition home or self-care (01) ==
LOC: LAB 10:20 → DI 10:21
PROVIDERS: ATTEND Family Medicine
DX: R09.89 Other specified symptoms and signs involving the circulatory and respiratory systems (principal); I50.9 Heart failure, unspecified; J45.998 Other asthma; M54.5 Low back pain
CPT/HCPCS: 36415; 71046; 80048; 83880; 85027

== ENCOUNTER 2018-12-05 14:26 | Outpatient (CLI) | payer MEDICARE, OTHER ==
[2018-12-05 18:19] LABS: BILIRUBIN,URINE NEGATIVE (NEGATIVE); GLUCOSE, URINE (UA) NEGATIVE (NEGATIVE); KETONES,URINE (UA) NEGATIVE (NEGATIVE); LEUKOCYTE ESTERASE, URINE NEGATIVE (NEGATIVE); NITRITE,URINE NEGATIVE (NEGATIVE); OCCULT BLOOD,URINE NEGATIVE (NEGATIVE); PROTEIN,URINE NEGATIVE (NEGATIVE); UROBILINOGEN,URINE 0.2 (NORMAL) E.U./dL (NORMAL)
[2018-12-05 18:20] LABS: CLARITY,URINE CLEAR (CLEAR)
[2018-12-05 18:49] LABS: BACTERIA,URINE Rare /HPF (None Seen); RBC,URINE 0-5 /HPF (0-5); SQUAMOUS EPITHELIAL CELL,UR RARE Squamous (<= Few)
== END 2018-12-05 14:27 | disposition home or self-care (01) ==
LOC: LAB 14:26
PROVIDERS: ATTEND Urology
DX: N39.41 Urge incontinence (principal); R35.1 Nocturia
CPT/HCPCS: 81001; 87086

== ENCOUNTER 2019-01-16 11:30 | Outpatient (CLI) | payer MEDICARE, OTHER ==
[2019-01-16 12:06] LABS: ALBUMIN 3.6 g/dL (3.2-5.5); ALKALINE PHOSPHATASE 84 IU/L (42-121); ALT ALANINE AMINOTRANSFERASE 15 IU/L (10-60); AST ASPARTATE AMINOTRANSFERASE 32 IU/L (10-42); BILIRUBIN,TOTAL 0.8 mg/dL (0.2-1.0); BUN - BLOOD UREA NITROGEN 30 mg/dL (6-20); CARBON DIOXIDE - CO2 25 mmol/L (21-32); CHLORIDE 104 mmol/L (101-111); CHOL/HDL RATIO 4.2 (<4.4); CHOLESTEROL 143 mg/dL; GFR - MDRD 54 (>89); GLUCOSE 141 mg/dL (70-100); HDL CHOLESTEROL 34 mg/dL; LDL CHOLESTEROL,CALCULATED 76 mg/dL; LDL/HDL RATIO 2.2 (<4.4); SODIUM 142 mmol/L (135-145); TOTAL PROTEIN 7.3 g/dL (6.7-8.2); VLDL CHOLESTEROL 33 mg/dL
== END 2019-01-16 11:31 | disposition home or self-care (01) ==
LOC: LAB 11:30
PROVIDERS: ATTEND Internal Medicine Cardiovascular Disease
DX: I25.10 Atherosclerotic heart disease of native coronary artery without angina pectoris (principal)
CPT/HCPCS: 36415; 80053; 80061; 83721

== ENCOUNTER 2019-05-24 16:28 | Outpatient (CLI) | payer MEDICARE, OTHER ==
--- NOTE | 2019-05-27 09:09 | Mammography Report ---
Reason: SCREENING MAMMO Procedure Date: 05/24/2019 Accession Number: [id number] / [id number] Procedure: DAPHNE - Screening Mammo w/Lilo CPT Code: Final Report FULL RESULT: EXAM: Screening Mammo w/Lilo DATE: 05/24/2019 5:14 PM CLINICAL HISTORY: Screening encounter. Family history of breast cancer in the mother at the age of 86, a sister at the age of 34, a sister at the age of 42. History of benign right breast biopsy. TECHNIQUE: (B) - Bilateral CC and MLO views were obtained. COMPARISON: 03/26/2018 through 07/13/2009. PARENCHYMAL PATTERN: (A) - The breast(s) demonstrate(s) scattered fibroglandular densities. FINDINGS: Typically benign coarse calcifications are again seen. The benign large rodlike calcific ends again seen. Bilateral breasts demonstrate a waxing and waning pattern of numerous well-circumscribed isodense nodules over time without associated architectural distortion, suspicious calcifications, typically benign cystic pattern. In the right breast medially, seen on CC projection 6.3 cm from the nipple, lilo image 31, is increasing focal nodularity which likely corresponds to right MLO upper breast nodules best seen on MLO total image 40. This should be further characterized by focused right breast ultrasound. In the right breast 5.5 cm from the nipple is a newly increasing well circumscribed nodule which potentially represents a cyst but also needs additional evaluation by focused right breast ultrasound. There are no suspicious masses, calcifications, or areas of distortion in the left breast. IMPRESSION: Incomplete examination. BI-RADS category 0. RECOMMENDATION: (ADDUS) - Targeted ultrasound recommended. Right breast BI-RADS CATEGORY: (0) - Incomplete Examination - need additional evaluation. STANDARD QUALIFYING STATEMENTS: 1. This examination was not reviewed with the aid of Computer-Aided Detection (CAD). 2. A negative or benign imaging report should not preclude biopsy if clinically suspicious findings are present. 3. Dense breasts may obscure an underlying neoplasm. 4. This examination was reviewed with the aid of 3D breast imaging (tomosynthesis).
== END 2019-05-24 16:29 | disposition home or self-care (01) ==
LOC: DI 16:28
DX: Z12.31 Encounter for screening mammogram for malignant neoplasm of breast (principal); R92.1 Mammographic calcification found on diagnostic imaging of breast; R92.8 Other abnormal and inconclusive findings on diagnostic imaging of breast; Z80.3 Family history of malignant neoplasm of breast
CPT/HCPCS: 77063; 77067

== ENCOUNTER 2019-06-17 11:42 | Outpatient (CLI) | payer MEDICARE, OTHER ==
--- NOTE | 2019-06-17 14:57 | Ultrasound Report ---
Reason: ABN MAMMO - RT SPEC VIEW US Procedure Date: 06/17/2019 Accession Number: [id number] / [id number] Procedure: US - Breast Unilateral Limited CPT Code: Final Report FULL RESULT: EXAM: Breast Unilateral Limited DATE: 06/17/2019 1:20 PM CLINICAL HISTORY: ABN MAMMO - RT SPEC VIEW US COMPARISON: None. TECHNIQUE: Targeted ultrasound was performed of the right breast in the area of clinical concern at 1 and 3 o'clock and variable distance from the nipple. Color Doppler was employed as appropriate. FINDINGS: Multiple cysts without solid components are identified which correspond to the mammographic findings. No suspicious architectural distortion or mass is seen. IMPRESSION: Benign findings RECOMMENDATION: Recommend routine annual Screening mammography unless otherwise clinically indicated. BIRADS CATEGORY 2: Benign findings RADIA
== END 2019-06-17 11:43 | disposition home or self-care (01) ==
LOC: DI 11:42
PROVIDERS: ATTEND Family Medicine
DX: N60.11 Diffuse cystic mastopathy of right breast (principal)
CPT/HCPCS: 76642

== ENCOUNTER 2019-07-02 12:46 | Outpatient (CLI) | payer MEDICARE, OTHER ==
[2019-07-02 13:11] LABS: CALCIUM 9.4 mg/dL (8.5-10.3); CREATININE 1.1 mg/dL (0.4-1.0)
[2019-07-02 13:17] LABS: HB2 TOTAL 13.1 g/dL; HEMOGLOBIN A1C 0.71 g/dL; HEMOGLOBIN A1C % 7.1 % (4.6-6.2)
== END 2019-07-02 12:47 | disposition home or self-care (01) ==
LOC: LAB 12:46
PROVIDERS: ATTEND Family Medicine
DX: E11.59 Type 2 diabetes mellitus with other circulatory complications (principal)
CPT/HCPCS: 36415; 80048; 83036

== ENCOUNTER 2019-08-19 17:26 | Outpatient (CLI) | payer MEDICARE, OTHER ==
--- NOTE | 2019-08-20 15:33 | XRAY Report ---
Reason: COARSE RESPIRATORY CRACKLES, ASTHMA Procedure Date: 08/19/2019 Accession Number: [id number] / [id number] Procedure: XR - Chest 2 View X-Ray CPT Code: 48204 Final Report FULL RESULT: EXAM: CHEST RADIOGRAPHY EXAM DATE: 08/19/2019 05:57 PM. CLINICAL HISTORY: Coarse respiratory crackles, asthma. COMPARISON: CHEST 2 VIEW 11/29/2018 10:34 AM. TECHNIQUE: 2 views. FINDINGS: Lungs/Pleura: No focal opacities evident. No pleural effusion. No pneumothorax. Normal volumes. Mediastinum: The left heart is mildly enlarged as before. Other: None. IMPRESSION: 1. No focal consolidation, effusions or edema. 2. Mild left heart enlargement unchanged. RADIA
== END 2019-08-19 17:27 | disposition home or self-care (01) ==
LOC: DI 17:26
PROVIDERS: ATTEND Family Medicine
DX: R09.89 Other specified symptoms and signs involving the circulatory and respiratory systems (principal); J45.998 Other asthma; I51.7 Cardiomegaly
CPT/HCPCS: 71046

== ENCOUNTER 2019-10-08 12:50 | Outpatient (CLI) | payer MEDICARE, OTHER ==
[2019-10-08 13:41] LABS: CALCIUM 8.6 mg/dL (8.5-10.3); CREATININE 1.2 mg/dL (0.4-1.0)
[2019-10-08 14:13] LABS: HB2 TOTAL 13.4 g/dL; HEMOGLOBIN A1C 0.6 g/dL; HEMOGLOBIN A1C % 6.2 % (4.6-6.2)
== END 2019-10-08 12:51 | disposition home or self-care (01) ==
LOC: LAB 12:50
PROVIDERS: ATTEND Family Medicine
DX: E11.9 Type 2 diabetes mellitus without complications (principal)
CPT/HCPCS: 36415; 80048; 83036

== ENCOUNTER 2019-10-08 14:53 | Outpatient (CLI) | payer MEDICARE, OTHER ==
--- NOTE | 2019-10-08 14:51 | SLEEP CARE CONSULTATION ---
Information from patient questionnaire entered by Joan Sidhu. I have reviewed and concur with the information entered by Joan Sidhu. This document represents the service I personally performed and the decisions made by me, Braydon Butcher MD, [facility]. History of Present Illness Previous diagnosis: Mild, Obstructive Sleep Apnea-Hypopnea Syndrome AHI: 8.3 Reason for follow up: first compliance after device update Equipment type: CPAP Equipment obtained from: [facility] additional information: To minimize the risk of COVID-19 exposure, we have the option to conduct your visit with me over the phone. I will be able to discuss your health and offer medical advice. If you agree, we will bill your insurance. Do you agree to this telephone service: YES. HPI: Ms. López was called today to follow up on nasal CPAP therapy. She was diagnosed to have mild obstructive sleep apnea-hypopnea syndrome. The patient wears with a Respironics DreamWear full face mask. [employer] is her durable medical supplier. She reports using the device nightly and all through the night. The compliance data show usage in 28 out of the past 30 nights, averaging 10.8 hours a night. The > 4 hour compliance rate for the past 30 days is 93.3%. She complained of no particular problem with the device such as soreness on the face, dry nose, epistaxis, nasal congestion or headache. She thinks that the pressure of 10 cmH2O is comfortable (she did not like lower pressures). On the CPAP therapy she notices improvement in her sleep quality, and that she wakes up feeling fresher in the morning and more awake/alert during the day. Her notices no snore at all. The average residual AHI is 1.2 and average time in large leak per day is 42 minutes. CPAP Compliance Data - Data Reviewed with Patient Average duration of nightly device use: 10.8 Compliance rate %: 93.3 Current pressure setting (cmH2O): 10 Humidity settin Heated hose settin Average residual AHI: 1.2 Average large leak: 41 min 49 sec Subjective Initial [place] Sleepiness Scale score: 10 Allergies and Home Medications Drug allergies reviewed: Yes Home medication list reviewed: Yes Review of Systems Review of systems same as previous: Yes Physical Exam Height: 5 ft 8 in Impression and Plan IMPRESSION: 1. Obstructive Sleep Apnea-Hypopnea Syndrome, mild (AHI was 8.3 in 2008) with the patient doing well on nasal CPAP therapy. She has excellent compliance and significant clinical improvement. The current pressure appears effective and comfortable. Her mask fits well. Overall, she is very satisfied with treatment and plans to continue with it long-term. No adjustment is necessary today. PLAN: 1. Continue with CPAP set at 10 cmH2O. 2. Return in one year for follow up or earlier if there is any problem with the treatment. I spent 100% of the 12 minute phone call with the patient with greater than 50% of this spent counseling the patient and coordination of care.
== END 2019-10-08 14:54 | disposition home or self-care (01) ==
LOC: SC 14:53
PROVIDERS: ATTEND Internal Medicine Pulmonary Disease
DX: G47.33 Obstructive sleep apnea (adult) (pediatric) (principal); E11.9 Type 2 diabetes mellitus without complications
CPT/HCPCS: 36415; 80048; 83036

== ENCOUNTER 2020-01-21 12:39 | Outpatient (CLI) | payer MEDICARE, OTHER ==
[2020-01-21 13:19] LABS: ALBUMIN 3.8 g/dL (3.2-5.5); ALBUMIN/GLOBULIN RATIO 1.3 (1.0-2.2); ALKALINE PHOSPHATASE 78 IU/L (42-121); ALT ALANINE AMINOTRANSFERASE 13 IU/L (10-60); AST ASPARTATE AMINOTRANSFERASE 28 IU/L (10-42); BUN - BLOOD UREA NITROGEN 36 mg/dL (6-20); CALCIUM 8.8 mg/dL (8.5-10.3); CARBON DIOXIDE - CO2 25 mmol/L (21-32); CHLORIDE 104 mmol/L (101-111); CHOL/HDL RATIO 3.7 (<4.4); CHOLESTEROL 122 mg/dL; CREATININE 1.2 mg/dL (0.4-1.0); GLUCOSE 105 mg/dL (70-100); HDL CHOLESTEROL 33 mg/dL; LDL CHOLESTEROL,CALCULATED 51 mg/dL; LDL/HDL RATIO 1.5 (<4.4); SODIUM 141 mmol/L (135-145); TOTAL PROTEIN 6.8 g/dL (6.7-8.2); VLDL CHOLESTEROL 38 mg/dL
== END 2020-01-21 12:40 | disposition home or self-care (01) ==
LOC: LAB 12:39
PROVIDERS: ATTEND Internal Medicine Cardiovascular Disease
DX: I25.10 Atherosclerotic heart disease of native coronary artery without angina pectoris (principal)
CPT/HCPCS: 36415; 80053; 80061; 83721

== ENCOUNTER 2020-04-15 11:52 | Emergency (ER) | payer MEDICARE, OTHER ==
[2020-04-15 13:08] LABS: BASOPHILS % (AUTO) 0.4 %; EOSINOPHILS # (AUTO) 0.3 10^3/uL (0.0-0.7); EOSINOPHILS % (AUTO) 3.1 %; HGB - HEMOGLOBIN 12.2 g/dL (12.0-16.0); LYMPHOCYTES # (AUTO) 1.6 10^3/uL (1.5-3.5); LYMPHOCYTES % (AUTO) 17.4 %; MEAN CORPUSCULAR HEMOGLOBIN 29.8 pg (27.0-31.0); MEAN CORPUSCULAR HGB CONC 32.4 g/dL (32.0-36.0); MEAN CORPUSCULAR VOLUME 92.2 fL (81.0-99.0); MEAN PLATELET VOLUME 11.3 fL (7.9-10.8); MONOCYTES # (AUTO) 0.6 10^3/uL (0.0-1.0); MONOCYTES % (AUTO) 6.2 %; NEUTROPHILS # (AUTO) 6.6 10^3/uL (1.5-6.6); NEUTROPHILS % (AUTO) 72.5 %; PLT - PLATELET COUNT 214 10^3/uL (130-450); RED BLOOD COUNT 4.09 10^6/uL (4.20-5.40); RED CELL DISTRIBUTION WIDTH 16.3 % (12.0-15.0); WHITE BLOOD COUNT 9.2 x10^3/uL (4.8-10.8)
[2020-04-15 13:19] LABS: BILIRUBIN,URINE NEGATIVE (NEGATIVE); GLUCOSE, URINE (UA) 250 mg/dL (NEGATIVE); KETONES,URINE (UA) NEGATIVE (NEGATIVE); LEUKOCYTE ESTERASE, URINE TRACE (NEGATIVE); NITRITE,URINE NEGATIVE (NEGATIVE); OCCULT BLOOD,URINE NEGATIVE (NEGATIVE); PROTEIN,URINE NEGATIVE (NEGATIVE); UROBILINOGEN,URINE 0.2 (NORMAL) E.U./dL (NORMAL)
--- NOTE | 2020-04-15 13:22 | XRAY Report ---
PROCEDURE: Chest 1 View X-Ray INDICATIONS: chest pain TECHNIQUE: One view of the chest was acquired. COMPARISON: 08/19/2019 FINDINGS: Surgical changes and devices: None. Lungs and pleura: No pleural effusions or pneumothorax. There is mild pulmonary vascular congestion. No definite focal infiltrate. Mediastinum: Mediastinal contours appear normal. Heart size is enlarged. Bones and chest wall: No suspicious bony lesions. Overlying soft tissues appear unremarkable. IMPRESSION: Cardiomegaly and mild congestion. No definite focal infiltrate. No pleural effusion or pneumothorax. Reviewed by: Cornelio Brumfield MD on 04/15/2020 1:21 PM PDT Approved by: Cornelio Brumfield MD on 04/15/2020 1:21 PM PDT Station ID: [id number]
[2020-04-15 13:23] LABS: ALBUMIN 3.6 g/dL (3.2-5.5); BILIRUBIN,TOTAL 0.7 mg/dL (0.2-1.0); CALCIUM 9.2 mg/dL (8.5-10.3); CREATININE 1.3 mg/dL (0.4-1.0); TOTAL PROTEIN 7.1 g/dL (6.7-8.2)
--- NOTE | 2020-04-15 13:28 | ED Physician Documentation ---
PD HPI CHEST PAIN - Stated complaint Stated Complaint: CHEST TIGHT, SOA, HR CONCERN - Chief complaint Chief Complaint: Cardiac - History obtained from History obtained from: Patient - History of Present Illness Timing - onset: How many weeks ago (2) Timing - onset during: Light activity Timing - duration: Weeks (2) Timing - details: Gradual onset, Still present Quality: Pressure, Tightness Location: Substernal Improved by: Rest Worsened by: Exertion Associated symptoms: Shortness of air, Feeling faint / dizzy Similar symptoms before: Has not had sx before Recently seen: Other - Additional information Additional information: 79-year-old female with a history of CAD(stent in 2008),HTN, DM, CHF and sleep apnea with irritated bladder, relates a complaint of exertional dyspnea over the past 2 weeks that is increasing and some chest pressure. She has had the symptoms for about 2 weeks and she went in to get an injection into her back yesterday was told that her heart rate was 40. She was unaware of a slow heart rate. She is on carvedilol 12.5 bid. Review of Systems Constitutional: denies: Fever Eyes: denies: Decreased vision Ears: denies: Ear pain Nose: denies: Congestion Throat: denies: Sore throat Cardiac: reports: Chest pain / pressure, Palpitations, Pedal edema Respiratory: reports: Dyspnea. denies: Cough, Wheezing GI: denies: Abdominal Pain, Nausea, Vomiting, Constipation, Diarrhea : reports: Frequency. denies: Dysuria Skin: denies: Rash Musculoskeletal: reports: Back pain. denies: Neck pain Neurologic: denies: Generalized weakness, Focal weakness, Numbness PD PAST MEDICAL HISTORY - Past Medical History Cardiovascular: Hypertension, High cholesterol, Coronary artery disease, Deep vein thrombosis, Angina, Other Respiratory: Asthma, Pneumonia, Sleep apnea Endocrine/Autoimmune: Type 2 diabetes GI: GERD, Hiatal hernia : Incontinence HEENT: Chronic vision loss Psych: Depression Musculoskeletal: Osteoarthritis, Fibromyalgia, Chronic back pain Derm: None - Past Surgical History Past Surgical History: Yes General: Cholecystectomy, Appendectomy, Colonoscopy, EGD Cardiovascular: Coronary stent HEENT: Cataracts - Present Medications Home Medications: Ambulatory Orders Medication Instructions Recorded Confirmed Aspirin [Aspir 81] 81 mg ORAL DAILY 03/25/14 06/25/17 Atenolol [Tenormin] 50 mg ORAL BID 03/25/14 06/25/17 Fesoterodine Fumarate [Toviaz] 4 mg PO DAILY 03/25/14 06/25/17 Furosemide [Lasix] 40 mg ORAL DAILY 03/25/14 06/25/17 Insulin Glargine [Lantus] 65 units SUBQ BID 03/25/14 06/25/17 Insulin Lispro [Humalog] 15 - 25 units SUBQ TIDWM 03/25/14 06/25/17 Losartan [Cozaar] 25 mg ORAL DAILY 03/25/14 06/25/17 Montelukast [Singulair] 10 mg ORAL DAILY 03/25/14 06/25/17 Pantoprazole Sodium 40 mg ORAL DAILY 03/25/14 06/25/17 Rosuvastatin Calcium [Crestor] 20 mg ORAL DAILY 03/25/14 06/25/17 Sertraline [Zoloft] 50 mg ORAL DAILY 03/25/14 06/25/17 raNITIdine [Zantac] 150 mg ORAL DAILY 03/25/14 06/25/17 LORazepam [Lorazepam] 1 mg PO DAILY 03/26/14 06/25/17 Hydrocodone/Acetaminophen [Rumely 1 each PO Q6H PRN #25 tablet 10/07/14 06/25/17 5-325 Tablet] Mirabegron [Myrbetriq] 50 tab PO DAILY 10/07/14 06/25/17 Naproxen 500 mg PO BID #14 tablet. 10/07/14 06/25/17 methocarbamoL [Robaxin] 500 mg PO Q6H PRN #25 tablet 10/07/14 06/25/17 carvediloL [Coreg] 12.5 mg PO BID 09/02/15 06/25/17 Clindamycin [Cleocin] 300 mg PO Q6H 7 Days #56 capsule 06/25/17 HYDROcod/ACETAM 5/325 [Rumely 5/325] 1 - 2 ea PO Q6H PRN #15 tablet 06/25/17 Rivaroxaban [Xarelto] 15 mg PO BID #42 tablet 02/25/18 - Allergies Allergies/Adverse Reactions: Allergies Allergy/AdvReac Type Severity Reaction Status Date / Time amoxicillin trihydrate * Allergy Emesis Verified 06/25/17 08:16 [From Augmentin] clopidogrel bisulfate * Allergy Itching Verified 06/25/17 08:16 [From Plavix] iodine Allergy Itching Verified 06/25/17 08:16 meperidine HCl * Allergy Itching Verified 06/25/17 08:16 [From Demerol] oxybutynin Allergy Itching Verified 06/25/17 08:16 potassium clavulanate * Allergy Itching Verified 06/25/17 08:16 [From Augmentin] rosiglitazone maleate * Allergy Itching Verified 06/25/17 08:16 [From Avandia] exenatide [From Byetta] AdvReac Unknown Verified 06/25/17 08:16 metformin AdvReac Unknown Verified 02/25/18 15:01 - Social History Does the pt smoke?: No Smoking Status: Never smoker Does the pt drink ETOH?: Yes Does the pt have substance abuse?: No PD ED PE NORMAL - Vitals Vital signs reviewed: Yes (bradycardic and hypertensive ) - General General: Alert and oriented X 3, No acute distress, Well developed/nourished - HEENT HEENT: Atraumatic, PERRL, EOMI - Neck Neck: Supple, no meningeal sign, No bony TTP - Cardiac Cardiac: No murmur, Other (slow irregular heart rate) - Respiratory Respiratory: No respiratory distress, Clear bilaterally - Abdomen Abdomen: Soft, Non tender, Other (morbid obesity ) - Back Back: No CVA TTP, No spinal TTP - Derm Derm: Normal color, Warm and dry, No rash - Extremities Extremities: No deformity, No edema, No calf tenderness / cord - Neuro Neuro: Alert and oriented X 3, tool straightener 2-12 intact, No motor deficit, No sensory deficit, Normal speech Eye Opening: Spontaneous Motor: Obeys Commands Verbal: Oriented GCS Score: 15 - Psych Psych: Normal mood, Normal affect Results - Vitals Vitals: Vital Signs - 24 hr 04/15/20 04/15/20 04/15/20 11:58 12:36 12:37 Temperature 36.9 C 36.7 C Heart Rate 38 L 33 L 35 L Respiratory 19 22 19 Rate Blood Pressure 155/93 H 130/49 L 146/53 H O2 Saturation 97 96 94 04/15/20 04/15/20 04/15/20 13:07 13:30 14:00 Temperature 36.6 C Heart Rate 35 L 36 L 37 L Respiratory 18 18 18 Rate Blood Pressure 154/110 H 150/81 H 142/57 H O2 Saturation 98 95 97 04/15/20 04/15/20 04/15/20 14:30 15:00 15:30 Temperature 36.7 C Heart Rate 34 L 35 L 36 L Respiratory 16 18 18 Rate Blood Pressure 146/54 H 141/56 H 143/57 H O2 Saturation 95 98 98 04/15/20 04/15/20 16:00 16:30 Temperature 36.9 C Heart Rate 37 L 37 L Respiratory 14 14 Rate Blood Pressure 140/72 H 152/51 H O2 Saturation 100 95 Oxygen O2 Source Room air - EKG (time done) 1158 Rate: Rate (enter#) (38) Rhythm: Atrial flutter (with bradycardia) Ischemia: Q waves (inferior) Compare to prior EKG: Changed from prior EKG (SPT 02-25-2018 rhythm has changed to a-flutter and the rate has slowed. The diffuse ST depression was present previously ) Computer interpretation: Agree with computer - Labs Labs: Laboratory Tests 04/15/20 04/15/20 04/15/20 12:54 12:54 12:54 WBC 9.2 RBC 4.09 L Hgb 12.2 Hct 37.7 MCV 92.2 MCH 29.8 MCHC 32.4 RDW 16.3 H Plt Count 214 MPV 11.3 H Neut # (Auto) 6.6 Lymph # (Auto) 1.6 [place] # (Auto) 0.6 Eos # (Auto) 0.3 Baso # (Auto) 0.0 Absolute Nucleated RBC 0.00 Nucleated RBC % 0.0 Sodium 143 Potassium 3.9 Chloride 107 Carbon Dioxide 25 Anion Gap 11.0 BUN 38 H Creatinine 1.3 H Estimated GFR (MDRD) 40 L Glucose 115 H POC Whole Bld Glucose Calcium 9.2 Total Bilirubin 0.7 AST 24 ALT 12 Alkaline Phosphatase 82 Troponin I High Sens 42.1 H* B-Natriuretic Peptide Total Protein 7.1 Albumin 3.6 Globulin 3.5 Albumin/Globulin Ratio 1.0 Lipase 44 Urine Color Urine Clarity Urine pH Ur Specific [place] Urine Protein Urine Glucose (UA) Urine Ketones Urine Occult Blood Urine Nitrite Urine Bilirubin Urine Urobilinogen Ur Leukocyte Esterase Urine RBC Urine WBC Ur Squamous Epith Cells Urine Bacteria Ur Microscopic Review Urine Culture Comments 04/15/20 04/15/20 04/15/20 13:12 13:41 15:09 WBC RBC Hgb Hct MCV MCH MCHC RDW Plt Count MPV Neut # (Auto) Lymph # (Auto) [place] # (Auto) Eos # (Auto) Baso # (Auto) Absolute Nucleated RBC Nucleated RBC % Sodium Potassium Chloride Carbon Dioxide Anion Gap BUN Creatinine Estimated GFR (MDRD) Glucose POC Whole Bld Glucose 69 L Calcium Total Bilirubin AST ALT Alkaline Phosphatase Troponin I High Sens B-Natriuretic Peptide 522 H Total Protein Albumin Globulin Albumin/Globulin Ratio Lipase Urine Color LIGHT YELLOW Urine Clarity CLEAR Urine pH 5.0 Ur Specific [place] 1.015 Urine Protein NEGATIVE Urine Glucose (UA) 250 H Urine Ketones NEGATIVE Urine Occult Blood NEGATIVE Urine Nitrite NEGATIVE Urine Bilirubin NEGATIVE Urine Urobilinogen 0.2 (NORMAL) Ur Leukocyte Esterase TRACE H Urine RBC 0-5 Urine WBC 4-5 Ur Squamous Epith Cells FEW Squamous Urine Bacteria Few Ur Microscopic Review INDICATED Urine Culture Comments INDICATED 04/15/20 15:50 WBC RBC Hgb Hct MCV MCH MCHC RDW Plt Count MPV Neut # (Auto) Lymph # (Auto) [place] # (Auto) Eos # (Auto) Baso # (Auto) Absolute Nucleated RBC Nucleated RBC % Sodium Potassium Chloride Carbon Dioxide Anion Gap BUN Creatinine Estimated GFR (MDRD) Glucose POC Whole Bld Glucose 102 H Calcium Total Bilirubin AST ALT Alkaline Phosphatase Troponin I High Sens B-Natriuretic Peptide Total Protein Albumin Globulin Albumin/Globulin Ratio Lipase Urine Color Urine Clarity Urine pH Ur Specific [place] Urine Protein Urine Glucose (UA) Urine Ketones Urine Occult Blood Urine Nitrite Urine Bilirubin Urine Urobilinogen Ur Leukocyte Esterase Urine RBC Urine WBC Ur Squamous Epith Cells Urine Bacteria Ur Microscopic Review Urine Culture Comments - Rads (name of study) chest Radiology: Prelim report reviewed (Impression: Cardiomegaly with mild congestion. No definite focal infiltrate. No pleural effusion or pneumothorax.), EMP read indepedently, See rad report PD MEDICAL DECISION MAKING - ED course Complexity details: reviewed old records, reviewed results, re-evaluated patient, considered differential, d/w patient, d/w family ED course: 79-year-old female with a history of exertional dyspnea over the past 2 weeks is found to have significant bradycardia and is in the rhythm of atrial flutter. She appears to be tolerating this well unless she is tasked. Dr. Philippe is consulted in the case and recommends transfer to [facility] for further evaluation and treatment. Dr. Grace is the hospitalist accepting . The patient is queried about her "code" status and when I describe pushing on her chest if her heart were to stop she readily indicates yes she does want this. Departure - Departure Disposition: 02 Transfer Acute Care Hosp Clinical Impression: Bradycardia Atrial flutter Qualifiers: Atrial flutter type: atypical Qualified Code(s): I48.4 - Atypical atrial flutter
[2020-04-15 13:29] LABS: CLARITY,URINE CLEAR (CLEAR)
[2020-04-15 13:32] LABS: BACTERIA,URINE Few /HPF (None Seen); RBC,URINE 0-5 /HPF (0-5); SQUAMOUS EPITHELIAL CELL,UR FEW Squamous (<= Few)
[2020-04-15 17:11] VITALS: BP 143/53
== END 2020-04-15 17:24 | disposition short-term general hospital (02) ==
LOC: ED 11:52
DX: I48.4 Atypical atrial flutter (principal); R00.1 Bradycardia, unspecified; I11.0 Hypertensive heart disease with heart failure; I50.9 Heart failure, unspecified; I25.10 Atherosclerotic heart disease of native coronary artery without angina pectoris; Z95.5 Presence of coronary angioplasty implant and graft; R35.0 Frequency of micturition; E11.9 Type 2 diabetes mellitus without complications; Z79.4 Long term (current) use of insulin; Z79.82 Long term (current) use of aspirin
CPT/HCPCS: 36415; 71045; 80053; 81001; 81003; 83690; 83880; 84484; 85025; 87086; 93005; 99284; 99285

== ENCOUNTER 2020-04-15 17:24 | Outpatient (CLI) | payer MEDICARE, OTHER | END 2020-04-15 17:25 | disposition short-term general hospital (02) | LOC: EMS 17:24 | PROVIDERS: ATTEND Surgery | DX: I48.92 Unspecified atrial flutter (principal); R00.1 Bradycardia, unspecified | CPT/HCPCS: A0425; A0426 ==

== ENCOUNTER 2020-04-21 08:00 | Outpatient (CLI) | payer MEDICARE, OTHER ==
[2020-04-21 18:26] LABS: BASOPHILS # (AUTO) 0.1 10^3/uL (0.0-0.1); BASOPHILS % (AUTO) 0.5 %; EOSINOPHILS # (AUTO) 0.3 10^3/uL (0.0-0.7); EOSINOPHILS % (AUTO) 2.9 %; HGB - HEMOGLOBIN 12.8 g/dL (12.0-16.0); LYMPHOCYTES # (AUTO) 1.6 10^3/uL (1.5-3.5); MEAN CORPUSCULAR HEMOGLOBIN 29.6 pg (27.0-31.0); MEAN CORPUSCULAR HGB CONC 31.8 g/dL (32.0-36.0); MEAN CORPUSCULAR VOLUME 92.8 fL (81.0-99.0); MEAN PLATELET VOLUME 11.2 fL (7.9-10.8); MONOCYTES # (AUTO) 0.7 10^3/uL (0.0-1.0); MONOCYTES % (AUTO) 7.4 %; NEUTROPHILS # (AUTO) 6.6 10^3/uL (1.5-6.6); NEUTROPHILS % (AUTO) 71.7 %; PLT - PLATELET COUNT 311 10^3/uL (130-450); RED BLOOD COUNT 4.33 10^6/uL (4.20-5.40); RED CELL DISTRIBUTION WIDTH 15.9 % (12.0-15.0); WHITE BLOOD COUNT 9.2 x10^3/uL (4.8-10.8)
[2020-04-21 19:25] LABS: ALBUMIN 3.7 g/dL (3.2-5.5); BILIRUBIN,TOTAL 0.4 mg/dL (0.2-1.0); CREATININE 1.1 mg/dL (0.4-1.0); TOTAL PROTEIN 7.5 g/dL (6.7-8.2); URIC ACID 7.8 mg/dL (2.6-7.2)
[2020-04-21 20:51] LABS: HEMOGLOBIN A1c% 6.3 % (4.27-6.07)
== END 2020-04-21 23:59 | disposition home or self-care (01) ==
LOC: LAB.WCP 08:00
PROVIDERS: ATTEND Nurse Practitioner
DX: I48.91 Unspecified atrial fibrillation (principal); I27.20 Pulmonary hypertension, unspecified; I13.0 Hypertensive heart and chronic kidney disease with heart failure and stage 1 through stage 4 chronic kidney disease, or unspecified chronic kidney disease; I50.9 Heart failure, unspecified; N18.2 Chronic kidney disease, stage 2 (mild); E11.22 Type 2 diabetes mellitus with diabetic chronic kidney disease; I25.10 Atherosclerotic heart disease of native coronary artery without angina pectoris; R35.0 Frequency of micturition; M10.9 Gout, unspecified; E78.5 Hyperlipidemia, unspecified
CPT/HCPCS: 36415; 80053; 81001; 83036; 83880; 84443; 84550; 85025; 87086

== ENCOUNTER 2020-06-15 12:41 | Outpatient (CLI) | payer MEDICARE, OTHER ==
[2020-06-15 13:29] LABS: ALBUMIN 3.6 g/dL (3.2-5.5); BILIRUBIN,TOTAL 0.6 mg/dL (0.2-1.0); CALCIUM 9.1 mg/dL (8.5-10.3); TOTAL PROTEIN 7.1 g/dL (6.7-8.2); URIC ACID 6.7 mg/dL (2.6-7.2)
[2020-06-15 13:36] LABS: BILIRUBIN,URINE NEGATIVE (NEGATIVE); GLUCOSE, URINE (UA) NEGATIVE (NEGATIVE); KETONES,URINE (UA) NEGATIVE (NEGATIVE); LEUKOCYTE ESTERASE, URINE MODERATE (NEGATIVE); NITRITE,URINE NEGATIVE (NEGATIVE); OCCULT BLOOD,URINE SMALL (NEGATIVE); PROTEIN,URINE NEGATIVE (NEGATIVE); UROBILINOGEN,URINE 0.2 (NORMAL) E.U./dL (NORMAL)
[2020-06-15 13:43] LABS: CLARITY,URINE HAZY (CLEAR)
[2020-06-15 13:56] LABS: BACTERIA,URINE Few /HPF (None Seen); SQUAMOUS EPITHELIAL CELL,UR MANY Squamous (<= Few)
== END 2020-06-15 12:42 | disposition home or self-care (01) ==
LOC: LAB 12:41
PROVIDERS: ATTEND Nurse Practitioner
DX: M10.9 Gout, unspecified (principal); R35.0 Frequency of micturition; N18.2 Chronic kidney disease, stage 2 (mild)
CPT/HCPCS: 36415; 80053; 81001; 84550; 87086

== ENCOUNTER 2020-08-26 08:00 | Outpatient (CLI) | payer MEDICARE, OTHER ==
[2020-08-26 12:45] LABS: BASOPHILS % (AUTO) 0.5 %; EOSINOPHILS # (AUTO) 0.4 10^3/uL (0.0-0.7); EOSINOPHILS % (AUTO) 4.2 %; HGB - HEMOGLOBIN 12.4 g/dL (12.0-16.0); LYMPHOCYTES # (AUTO) 1.9 10^3/uL (1.5-3.5); LYMPHOCYTES % (AUTO) 21.3 %; MEAN CORPUSCULAR HEMOGLOBIN 28.8 pg (27.0-31.0); MEAN CORPUSCULAR HGB CONC 32.2 g/dL (32.0-36.0); MEAN CORPUSCULAR VOLUME 89.3 fL (81.0-99.0); MEAN PLATELET VOLUME 12.3 fL (7.9-10.8); MONOCYTES # (AUTO) 0.7 10^3/uL (0.0-1.0); MONOCYTES % (AUTO) 8.2 %; NEUTROPHILS # (AUTO) 5.8 10^3/uL (1.5-6.6); NEUTROPHILS % (AUTO) 65.5 %; PLT - PLATELET COUNT 241 10^3/uL (130-450); RED BLOOD COUNT 4.31 10^6/uL (4.20-5.40); RED CELL DISTRIBUTION WIDTH 16.5 % (12.0-15.0); WHITE BLOOD COUNT 8.8 x10^3/uL (4.8-10.8)
[2020-08-26 13:02] LABS: CALCIUM 9.1 mg/dL (8.5-10.3)
== END 2020-08-26 23:59 | disposition home or self-care (01) ==
LOC: LAB.WCP 08:00
PROVIDERS: ATTEND Physician Assistant Medical
DX: K59.00 Constipation, unspecified (principal)
CPT/HCPCS: 36415; 80048; 83036; 85025

== ENCOUNTER 2020-08-28 12:35 | Outpatient (CLI) | payer MEDICARE, OTHER ==
[2020-08-28] MEDS ORDERED: IOVERSOL 320 100 ML VIAL IVP ONE ×2 (12:51→15:43)
[2020-08-28] MEDS ORDERED: IOPAMIDOL-300 50 ML VIAL ONE (12:51)
--- NOTE | 2020-08-28 15:21 | CONSULTATION NOTE ---
Consultation Report: Called to Diagnostic Imaging for placement of IV for contrast CT. Multiple failed attempts by multiple staff members. Patient with extensive history of difficult IV starts. Patient to CT table, supine. R arm extended to scott stand, prepped. US used to place 20ga 1.18" IV at R FA attempt x3. Easily aspirates and flushes with cap and J-loop extension. Secured with tegaderm and tape. Patient tolerated procedure without complication or complaint.
[2020-08-28] MEDS ORDERED: IOPAMIDOL-300 50 ML VIAL PO ONE (15:44)
--- NOTE | 2020-08-28 17:28 | CT Report ---
PROCEDURE: Abdomen/Pelvis W INDICATIONS: CONSTIPATION CONTRAST: IV CONTRAST: Optiray 320 ml: 100 PO CONTRAST: Isovue 300 ml50 TECHNIQUE: After the administration of intravenous contrast, 5 mm thick sections acquired from the diaphragms to the symphysis. 5 mm thick coronal and sagittal reformats were acquired. For radiation dose reducti on, the following was used: automated exposure control, adjustment of mA and/or kV according to willie ent size. Because of local infiltration, injected IV contrast is infiltrated in the right antecubita l fossa. I personally evaluated the patient. Instructions for post contrast infiltration care was str essed with the patient. COMPARISON: CT [facility], 10/07/2014. CT abdomen and pelvis without contrast, 02/06/2012.. FINDINGS: Image quality: Excellent. ABDOMEN: Lung bases: Trace right pleural effusion or pleural thickening. Heart size is normal. There is mild coronary artery calcification. A small hiatal hernia is identified. Solid organs: Liver and spleen are normal in size and enhancement. Gallbladder is surgically absent . Biliary system is non dilated. Pancreas enhances normally. No adrenal nodules. Kidneys demonstr ate normal size and enhancement, without hydronephrosis. Peritoneum and bowel: A large amount of stool in colon consistent with constipation. Bowel loops dem onstrate normal wall thickness and caliber. No free fluid or air. Nodes and vessels: No retroperitoneal or mesenteric adenopathy by size criteria. Aorta and inferior vena cava are normal in size. Miscellaneous: There is a moderate sized right flank hernia containing cecum and small bowel loop. PELVIS: Genitourinary: Uterus and ovaries are normal. Bladder wall thickness is normal. Miscellaneous: No inguinal hernias or adenopathy. Bones: No suspicious bony lesions. No vertebral body compression fractures. There are degenerative and postsurgical changes in lumbar spine. Nerve stimulator is noted in sacrum. IMPRESSION: 1. A large amount stool in colon consistent with constipation. 2. No acute abnormalities in abdomen or pelvis. 3. A moderate-sized right flank hernia containing cecum and small bowel. 4. A small hiatal hernia. Reviewed by: Karsten Rodriguez MD on 08/28/2020 5:27 PM PST Approved by: Karsten Rodriguez MD on 08/28/2020 5:27 PM PST Station ID: [id number]
== END 2020-08-28 12:36 | disposition home or self-care (01) ==
LOC: DI 12:35
PROVIDERS: ATTEND Physician Assistant Medical
DX: K59.00 Constipation, unspecified (principal); K46.9 Unspecified abdominal hernia without obstruction or gangrene; K44.9 Diaphragmatic hernia without obstruction or gangrene
CPT/HCPCS: 74177; Q9967

== ENCOUNTER 2020-09-11 16:46 | Outpatient (CLI) | payer MEDICARE, OTHER | END 2020-09-11 16:47 | disposition home or self-care (01) | LOC: COV 16:46 | PROVIDERS: ATTEND Surgery | DX: Z01.812 Encounter for preprocedural laboratory examination (principal); K21.9 Gastro-esophageal reflux disease without esophagitis; R19.4 Change in bowel habit; I25.10 Atherosclerotic heart disease of native coronary artery without angina pectoris; G47.33 Obstructive sleep apnea (adult) (pediatric); E11.9 Type 2 diabetes mellitus without complications; Z79.4 Long term (current) use of insulin; Z20.822 Contact with and (suspected) exposure to COVID-19 ==

== ENCOUNTER 2020-09-15 07:36 | Day surgery (SDC) | payer MEDICARE, OTHER ==
--- NOTE | 2020-09-15 08:31 | ANESTHESIA ---
Pre-Anesthesia VS, & Labs - Diagnosis gerd, change in bowel habits - Procedure EGD, colonoscopy Vital Signs: Temp Pulse Resp BP Pulse Ox 36.4 C L 70 16 172/70 H 96 09/15/20 07:43 09/15/20 07:43 09/15/20 07:43 09/15/20 07:43 09/15/20 07:43 Height: 5 ft 8 in Weight (kg): 120.6 kg Body Mass Index: 40.4 BMI Classification: Morbidly Obese - NPO >8 hours - Is Patient ?: No - Lab Results Current Lab Results: Laboratory Tests 09/15/20 07:57: POC Whole Bld Glucose 123 H Home Medications and Allergies Home Medications: Ambulatory Orders Albuterol Sulfate [Proair Hfa Inhaler] 1 - 2 puffs INH Q4H PRN 09/04/20 Amlodipine Besylate [Norvasc] 10 mg PO DAILY 09/04/20 Apixaban [Eliquis] 5 mg PO BID 09/04/20 Atorvastatin Calcium 40 mg PO QPM 09/04/20 Cholecalciferol [Vitamin D3] 5,000 unit PO DAILY 09/04/20 Clobetasol/Calcipotriene [Calcipotr 0.005%-Clobeta 0.05%] 1 applic TP PRN PRN 09/04/20 Fluticasone/Vilanterol [Breo Ellipta 100-25 Mcg INH] 1 each IH DAILY 09/04/20 Lactobacillus Acidophilus [Probiotic Acidophilus] 1 each PO DAILY 09/04/20 Magnesium Oxide [Magnesium] 400 mg PO BID 09/04/20 Nitroglycerin [Nitrostat] 0.4 mg SL Q5MIN PRN 09/04/20 Nystatin/Triamcin [Nystatin-Triamcinolone Cream] 1 applic TP PRN PRN 09/04/20 Chandler-3S/Dha/Epa/Fish Oil [Fish Oil 1,200 mg Softgel] 2 each PO DAILY 09/04/20 metFORMIN [Glucophage] 500 mg PO BIDWM 09/04/20 Fesoterodine Fumarate [Toviaz] 8 mg PO DAILY 03/25/14 Furosemide [Lasix] 40 mg ORAL DAILY 03/25/14 Insulin Glargine [Lantus] 44 units SUBQ BID 03/25/14 Insulin Lispro [Humalog] 50 - 60 units SUBQ DAILY 03/25/14 Losartan [Cozaar] 25 mg ORAL DAILY 03/25/14 Montelukast [Singulair] 10 mg ORAL DAILY 03/25/14 Pantoprazole Sodium 40 mg ORAL DAILY 03/25/14 Sertraline [Zoloft] 50 mg ORAL DAILY 03/25/14 LORazepam [Lorazepam] 1 mg PO QPM PRN 03/26/14 Mirabegron [Myrbetriq] 50 tab PO DAILY 10/07/14 Albuterol Sulfate [Proair Hfa Inhaler] 1 - 2 puffs INH Q4H PRN 09/04/20 Amlodipine Besylate [Norvasc] 10 mg PO DAILY 09/04/20 Apixaban [Eliquis] 5 mg PO BID 09/04/20 Atorvastatin Calcium 40 mg PO QPM 09/04/20 Cholecalciferol [Vitamin D3] 5,000 unit PO DAILY 09/04/20 Clobetasol/Calcipotriene [Calcipotr 0.005%-Clobeta 0.05%] 1 applic TP PRN PRN 09/04/20 Fluticasone/Vilanterol [Breo Ellipta 100-25 Mcg INH] 1 each IH DAILY 09/04/20 Lactobacillus Acidophilus [Probiotic Acidophilus] 1 each PO DAILY 09/04/20 Magnesium Oxide [Magnesium] 400 mg PO BID 09/04/20 Nitroglycerin [Nitrostat] 0.4 mg SL Q5MIN PRN 09/04/20 Nystatin/Triamcin [Nystatin-Triamcinolone Cream] 1 applic TP PRN PRN 09/04/20 Chandler-3S/Dha/Epa/Fish Oil [Fish Oil 1,200 mg Softgel] 2 each PO DAILY 09/04/20 metFORMIN [Glucophage] 500 mg PO BIDWM 09/04/20 Allergies/Adverse Reactions: Allergies Allergy/AdvReac Type Severity Reaction Status Date / Time amoxicillin trihydrate * Allergy Itching Verified 09/04/20 14:50 [From Augmentin] clopidogrel bisulfate * Allergy Itching Verified 06/25/17 08:16 [From Plavix] iodine Allergy Nausea Verified 09/04/20 14:50 meperidine HCl * Allergy Nausea Verified 09/04/20 14:50 [From Demerol] oxybutynin Allergy Itching Verified 06/25/17 08:16 potassium clavulanate * Allergy Itching Verified 06/25/17 08:16 [From Augmentin] rosiglitazone maleate * Allergy Itching Verified 06/25/17 08:16 [From Avandia] exenatide [From Byetta] AdvReac Unknown Verified 06/25/17 08:16 Anes History & Medical History - Medical History Cardiovascular: reports: Hypertension, High cholesterol, Pulmonary embolism, Arrhythmia (first/second degree heart block) Pulmonary: reports: Asthma, Sleep apnea, CPAP use Gastrointestinal: reports: GERD, Hiatal hernia, Colon polyps Urinary: reports: Incontinence, Other Musculoskeletal: reports: Fibromyalgia, Chronic back pain Endocrine/Autoimmune: reports: Type 2 diabetes Skin: reports: None Smoking Status: Never smoker - Surgical History General: reports: Cholecystectomy, Appendectomy, Colonoscopy, EGD Eyes Ears Nose Throat (EENT): reports: Cataracts Cardiothoracic: reports: Coronary stent Orthopedic: reports: Spine surgery Exam General: Alert Dental: WNL Mouth Opening: Greater than 4 Fingerbreadths Neck Mobility: Limited Mallampati classification: IV Thyromental Distance: greater than 6 cm Respiratory: Lungs clear Cardiovascular: Regular rate, Normal S1, Normal S2 Plan Anesthesia Type: Total IV Consent for Procedure(s) Verified and Reviewed: Yes Code Status: Attempt Resuscitation ASA classification: 3-Severe systemic disease Is this case an emergency?: No
[2020-09-15] MEDS ORDERED: GLYCOPYRROLATE 1 MG/5 ML VIAL ONE (08:46)
[2020-09-15] MEDS ORDERED: LIDOCAINE-MPF 2% 5 ML VIAL ONE (09:01)
[2020-09-15] MEDS ORDERED: PROPOFOL 500 MG/50 ML 500 MG/50 ML VIAL ONE (09:01)
[2020-09-15] MEDS ORDERED: KETAMINE 500 MG/10 ML VIAL ONE (09:05)
[2020-09-15] MEDS ORDERED: MIDAZOLAM 2 MG/2 ML VIAL ONE (09:05)
[2020-09-15] MEDS ORDERED: LACTATED RINGERS 1,000 ML IV ONE (10:08)
[2020-09-15] MEDS ORDERED: PROPOFOL 200 MG/20 ML VIAL IVP ONE (10:11)
[2020-09-15] MEDS ORDERED: IOPAMIDOL-300 50 ML VIAL ONE ×2 (10:56→11:42)
--- NOTE | 2020-09-15 11:00 | ANESTHESIA POST OP EVALUATION ---
Anesthesia Post Eval - Post Anesthesia Eval Vitals: Last Vital Signs Temp 36.2 C L 09/15/20 10:15 Pulse 46 L 09/15/20 10:30 Resp 14 09/15/20 10:30 BP 144/56 H 09/15/20 10:30 Pulse Ox 95 09/15/20 10:30 CV Function Including HR & BP: positive: Stable Pain Control: positive: Satisfactory Nausea & Vomiting: positive: Negative Mental Status: positive: Baseline Respiratory Status: Airway Patent Hydration Status: Satisfactory Anesthesia Complications: positive: None
[2020-09-15 11:01] VITALS: BP 140/57
[2020-09-15] MEDS ORDERED: IOPAMIDOL-300 50 ML VIAL PO ONE (12:00)
--- NOTE | 2020-09-15 13:28 | CT Report ---
PROCEDURE: Abdomen/Pelvis WO INDICATIONS: ? incomplete colonoscopy TECHNIQUE: After rectal contrast infusion, 5 mm thick sections acquired from the diaphragms to the symphysis. 5 mm coronal and sagittal reformats were then performed. For radiation dose reduction, the following was used: automated exposure control, adjustment of mA and/or kV according to patient size. COMPARISON: 08/28/2020. FINDINGS: Image quality: Excellent. ABDOMEN: Lung bases: Bibasilar dependent atelectasis are seen posteriorly. Heart size is enlarged, no pericard ial effusion. Mild to moderate coronary artery calcifications are seen. Solid organs: Liver and spleen are normal in size. Gallbladder is surgically absent. Pancreas is n ormal in contours. 1.9 x 1.2 cm right adrenal nodule is seen unchanged from prior studies. No left a drenal nodules. Kidneys are normal in size, without hydronephrosis or nephrolithiasis. Peritoneum and bowel: There is normal rectal contrast distention of rectum, sigmoid colon, descending colon, transverse colon and ascending colon to the level of the ileocecal junction. Redundant sigmoi d colon is seen. There is a surgical clips seen in proximal portion of transverse colon just distal t o the hepatic flexure and likely related to recent colonoscopy. No intraluminal filling defect or abn ormal bowel wall thickening is seen. No free fluid or free air. No bowel obstruction. Nodes and vessels: No retroperitoneal or mesenteric adenopathy by size criteria. Aorta and inferior vena cava are normal in caliber. Miscellaneous: Right inferior abdominal wall defect is seen with portion of ascending colon within th e herniation sac. No evidence of incarceration. PELVIS: Genitourinary: Bladder wall thickness is normal. Miscellaneous: No inguinal hernias or adenopathy. Bones: No suspicious bony lesions. No vertebral body compression fractures. Postsurgical changes ar e seen in lower lumbar spine at L5-S1 level. Right-sided cord stimulator is also seen with battery pa ck noted in right upper gluteal soft tissue. IMPRESSION: 1. Normal rectal contrast distention of colon loops to the level of the ileocecal junction. Redundant sigmoid colon. Possible post colonoscopy changes in proximal transverse colon near hepatic flexure. No gross intraluminal filling defect or abnormal stricture. No abnormal colonic wall thickening. 2. Right lateral abdominal wall defect with herniation sac containing portion of ascending colon loop s and mesenteric fat without evidence of incarceration. 3. No bowel obstruction. No abnormal bowel wall thickening. No free fluid or free air. 4. Suggestion of a 1.9 x 1.2 cm right adrenal nodule which was seen on previous CT of chest study in 2018. Finding May represent benign adrenal adenoma. Reviewed by: Cornelio Brumfield MD on 09/15/2020 1:27 PM [facility] Approved by: Cornelio Brumfield MD on 09/15/2020 1:27 PM [facility] Station ID: [id number]
== END 2020-09-15 07:37 | disposition home or self-care (01) ==
LOC: SDS 07:36
PROVIDERS: ATTEND Surgery
PROC: 0DB98ZX Excision of Duodenum, Via Natural or Artificial Opening Endoscopic, Diagnostic (ICD-10-PCS; 2020-09-15)
PROC: 0DB78ZX Excision of Stomach, Pylorus, Via Natural or Artificial Opening Endoscopic, Diagnostic (ICD-10-PCS; 2020-09-15)
PROC: 0DB28ZX Excision of Middle Esophagus, Via Natural or Artificial Opening Endoscopic, Diagnostic (ICD-10-PCS; 2020-09-15)
PROC: 0DB48ZX Excision of Esophagogastric Junction, Via Natural or Artificial Opening Endoscopic, Diagnostic (ICD-10-PCS; 2020-09-15)
PROC: 0DJD8ZZ Inspection of Lower Intestinal Tract, Via Natural or Artificial Opening Endoscopic (ICD-10-PCS; 2020-09-15)
PROC: 0DB68ZZ Excision of Stomach, Via Natural or Artificial Opening Endoscopic (ICD-10-PCS; principal; 2020-09-15 08:30)
PROC: 0DB68ZX Excision of Stomach, Via Natural or Artificial Opening Endoscopic, Diagnostic (ICD-10-PCS; 2020-09-15 08:30)
DX: K59.00 Constipation, unspecified (principal); K64.8 Other hemorrhoids; K31.7 Polyp of stomach and duodenum; K21.9 Gastro-esophageal reflux disease without esophagitis; R10.9 Unspecified abdominal pain; K43.9 Ventral hernia without obstruction or gangrene; I48.91 Unspecified atrial fibrillation; G47.33 Obstructive sleep apnea (adult) (pediatric); I25.10 Atherosclerotic heart disease of native coronary artery without angina pectoris; E66.01 Morbid (severe) obesity due to excess calories; Z68.41 Body mass index [BMI] 40.0-44.9, adult; I10 Essential (primary) hypertension; Z86.711 Personal history of pulmonary embolism; Z79.01 Long term (current) use of anticoagulants; E11.9 Type 2 diabetes mellitus without complications; Z95.5 Presence of coronary angioplasty implant and graft; Z87.891 Personal history of nicotine dependence
CPT/HCPCS: 43239; 43250; 43251; 45378; 74176; J7120; Q9967

== ENCOUNTER 2020-09-22 13:50 | Outpatient (CLI) | payer MEDICARE, OTHER ==
--- NOTE | 2020-09-22 14:21 | SLEEP CARE CONSULTATION ---
Information from patient questionnaire entered by Lizz Castellon. I have reviewed and concur with the information entered by Lizz Castellon. This document represents the service I personally performed and the decisions made by , Jerilyn Obrien ARNP. History of Present Illness Service Date and Time: 09/22/2020 1350 Previous diagnosis: Mild, Obstructive Sleep Apnea-Hypopnea Syndrome AHI: 8.3 Reason for follow up: annual (Last seen 09/2019) Equipment type: CPAP Equipment obtained from: [employer] (getting supplies as needed) Mask style: Full face Mask brand: Respironics Backup mask available: Yes (old mask) Last cushion change: 2-3 weeks ago Prior sleep studies: Yes Year and Where: 2008 [facility] additional information: KEN BEARDEN was diagnosed to have mild, AHI 8.3, obstructive sleep apnea- hypopnea syndrome and returned today for CPAP therapy annual follow-up. CPAP Compliance Data - Data Reviewed with Patient Average duration of nightly device use: 11 h 19 min Compliance rate %: 98.9 Current pressure setting (cmH2O): 10 Humidity settin Heated hose settin Average residual AHI: 1.1 Average large leak: 13 min 32 sec Subjective Patient concerns: reports: mask leak noise (sometimes). denies: aerophagia, mask discomfort, air blowing in eyes, condensation in mask/hose, nasal congestion, dry mouth, nose, throat, epistaxis, other Observed to snore while using device: No Current pressure setting perceived as: comfortable On therapy, patient: reports: sleeping better, awakening more refreshed, being more awake and alert during the day, more rested overall. denies: drowsiness while driving Initial [place] Sleepiness Scale score: 10 (in 2008) Current [place] Sleepiness Scale score: 9 Allergies and Home Medications Home medication list reviewed: Yes (amlodipine) Review of Systems Review of systems same as previous: No (colonoscopy, hernia, esphogeal polyps found) Physical Exam Heart Rate: 54 O2 Saturation: 97 Height: 5 ft 8 in Weight: 269 lb Body Mass Index: 40.8 BMI Classification: Morbidly Obese Impression and Plan 1. Obstructive Sleep Apnea-Hypopnea Syndrome, mild, with good treatment compliance and good apnea control. On CPAP therapy, the patient has better sleep quality and is more rested overall. She likes her current pressure settings and does not like to sleep without her machine. She does get some air leak noises, sometimes she has to tighten her headgear so much that it put hines on her face. She occasionally gets sores in her nose that resolve with a little topical antibiotic ointment. She does not wash the mask daily. Mask leaks can be reduced by washing mask daily and changing mask cushions more frequently to improve mask seal and comfort. I also advised that cleaning the mask daily will help reduce skin irritation or soreness in her nose. She voiced understanding. Patient's apnea severity and rationale for treatment to reduce apnea, improve sleep quality and reduce cardiovascular and cerebrovascular events was reviewed. I also reviewed the benefit of consistent device use of CPAP for hypertension, cardiac disease, diabetes, and gastric reflux. * Continue auto CPAP pressure at 10 cmH2O * Notify me if snoring with mask or feeling that the pressure is too much or too little * Attempt to lose weight * Call this office if any problems using CPAP * Return for follow up in 1 year, or sooner if concerns arise Counseling Topics: Spare mask, Weight loss health impact Visit Type: In Office Time Spent with Patient (minutes): 19 Provider Statement: I spent 100% of the Face to Face Visit with the patient with greater than 50% spent counseling the patient and coordination of care.
== END 2020-09-22 13:51 | disposition home or self-care (01) ==
LOC: SC 13:50
PROVIDERS: ATTEND Nurse Practitioner Family
DX: G47.33 Obstructive sleep apnea (adult) (pediatric) (principal); E66.01 Morbid (severe) obesity due to excess calories; Z68.41 Body mass index [BMI] 40.0-44.9, adult
CPT/HCPCS: 99212; G0463

== ENCOUNTER 2020-11-02 09:51 | Outpatient (CLI) | payer MEDICARE, OTHER ==
--- NOTE | 2020-11-03 13:23 | Mammography Report ---
BILATERAL DIGITAL SCREENING MAMMOGRAM 3D/2D: 11/02/2020 CLINICAL: Routine screening. Comparison is made to exams dated: 05/24/2019 mammogram, 03/26/2018 mammogram, 03/21/2017 mammogram, mammogram, and 01/08/2015 mammogram - [facility]. There are scattered fibro glandular elements in both breasts. No significant masses, calcifications, or other findings are seen in either breast. There has been no significant interval change. IMPRESSION: NEGATIVE There is no mammographic evidence of malignancy. A 1 year screening mammogram is recommended. This exam was interpreted at Station ID: [id number]. NOTE: For mammograms, a report in lay terms will be sent to the patient. Approximately 15% of breast malignancies will not be visualized mammographically. In the management of a palpable breast mass, a negative mammogram must not discourage biopsy of a clinically suspicious lesion. Electronically Signed By: Farida Mejia M.D. [email or web address]:11/02/2020 14:18:45 ACR BI-RADS Category 1: Negative 3341F PARENCHYMAL PATTERN: (A) - The breast(s) demonstrate(s) scattered fibroglandular densities. BI-RADS CATEGORY: (1) - 1 RECOMMENDATION: (ANNUAL) - Recommend routine annual screening mammography. [id number] 1 year screening LATERALITY: (B)
== END 2020-11-02 09:52 | disposition home or self-care (01) ==
LOC: DI 09:51
DX: Z12.31 Encounter for screening mammogram for malignant neoplasm of breast (principal)

== ENCOUNTER 2020-12-03 12:51 | Outpatient (CLI) | payer MEDICARE, OTHER ==
[2020-12-03 13:40] LABS: CALCIUM 9.1 mg/dL (8.5-10.3); POTASSIUM 3.8 mmol/L (3.5-5.0)
[2020-12-03 13:53] LABS: CREATININE,URINE 51.1 mg/dL; MICROALBUM/CREATININE RATIO,UR 41.1 ug/mg (<30.0); MICROALBUMIN,URINE 2.1 mg/dL (0-300.0)
[2020-12-03 20:22] LABS: ESTIMATED AVERAGE GLUCOSE 128 mg/dL (70-100); HEMOGLOBIN A1c% 6.1 % (4.27-6.07)
== END 2020-12-03 12:52 | disposition home or self-care (01) ==
LOC: LAB 12:51
PROVIDERS: ATTEND Physician Assistant Medical
DX: E11.59 Type 2 diabetes mellitus with other circulatory complications (principal)
CPT/HCPCS: 36415; 80048; 82043; 82570; 83036

== ENCOUNTER 2020-12-11 16:34 | Emergency (ER) | payer MEDICARE, OTHER ==
--- OUTSIDE RECORDS SUMMARY | 2020-12-11 17:13 | EXTERNAL MEDICAL SUMMARY RPT | Continuity of Care Document ---
:1940 Demographics Phone Unavailable Preferred Language Unknown Marital Status Unknown Church Affiliation Unknown Race Unknown Ethnic Group Unknown Author Organization [facility] Address [address] [place] [address] Phone Allergies Encounters Medications Problems Results
--- NOTE | 2020-12-11 19:34 | ED Physician Documentation ---
History of Present Illness - Stated complaint Stated Complaint: FEMALE - Chief complaint Chief Complaint: General - History obtained from History obtained from: Patient - Additonal information Additional information: Had menopause at age 45. 2 days of vaginal bleeding, Heavy yesterday, later today. No pelvic pain. Mom had a history of uterine cancer. Review of Systems Ten Systems: 10 systems reviewed and negative Cardiac: reports: Reviewed and negative Respiratory: reports: Reviewed and negative PD PAST MEDICAL HISTORY - Past Medical History Cardiovascular: Hypertension, High cholesterol, Pulmonary embolism, Arrhythmia (first/second degree heart block) Respiratory: Asthma, Sleep apnea, CPAP use Endocrine/Autoimmune: Type 2 diabetes GI: GERD, Hiatal hernia, Colon polyps : Incontinence, Other HEENT: None Psych: Depression Musculoskeletal: Fibromyalgia, Chronic back pain Derm: None - Past Surgical History Past Surgical History: Yes General: Cholecystectomy, Appendectomy, Colonoscopy, EGD Ortho: Spine surgery Cardiovascular: Coronary stent HEENT: Cataracts - Present Medications Home Medications: Ambulatory Orders Medication Instructions Recorded Confirmed Fesoterodine Fumarate [Toviaz] 8 mg PO DAILY 03/25/14 09/04/20 Furosemide [Lasix] 40 mg ORAL DAILY 03/25/14 09/04/20 Insulin Glargine [Lantus] 44 units SUBQ BID 03/25/14 09/04/20 Insulin Lispro [Humalog] 50 - 60 units SUBQ DAILY 03/25/14 09/04/20 Losartan [Cozaar] 25 mg ORAL DAILY 03/25/14 09/04/20 Montelukast [Singulair] 10 mg ORAL DAILY 03/25/14 09/04/20 Pantoprazole Sodium 40 mg ORAL DAILY 03/25/14 09/04/20 Sertraline [Zoloft] 50 mg ORAL DAILY 03/25/14 09/04/20 LORazepam [Lorazepam] 1 mg PO QPM PRN 03/26/14 09/04/20 Mirabegron [Myrbetriq] 50 tab PO DAILY 10/07/14 09/04/20 HYDROcod/ACETAM 5/325 [Irene 5/325] 1 - 2 ea PO Q6H PRN #15 tablet 06/25/17 0 09/04/20 Albuterol Sulfate [Proair Hfa 1 - 2 puffs INH Q4H PRN 09/04/20 09/04/20 Inhaler] Amlodipine Besylate [Norvasc] 10 mg PO DAILY 09/04/20 09/04/20 Apixaban [Eliquis] 5 mg PO BID 09/04/20 09/04/20 Atorvastatin Calcium 40 mg PO QPM 09/04/20 09/04/20 Cholecalciferol [Vitamin D3] 5,000 unit PO DAILY 09/04/20 09/04/20 Clobetasol/Calcipotriene 1 applic TP PRN PRN 09/04/20 09/04/20 [Calcipotr 0.005%-Clobeta 0.05%] Fluticasone/Vilanterol [Breo 1 each IH DAILY 09/04/20 09/04/20 Ellipta 100-25 Mcg INH] Lactobacillus Acidophilus 1 each PO DAILY 09/04/20 09/04/20 [Probiotic Acidophilus] Magnesium Oxide [Magnesium] 400 mg PO BID 09/04/20 09/04/20 Nitroglycerin [Nitrostat] 0.4 mg SL Q5MIN PRN 09/04/20 09/04/20 Nystatin/Triamcin 1 applic TP PRN PRN 09/04/20 09/04/20 [Nystatin-Triamcinolone Cream] [place]-3S/Dha/Epa/Fish Oil [Fish 2 each PO DAILY 09/04/20 09/04/20 Oil 1,200 mg Softgel] metFORMIN [Glucophage] 500 mg PO BIDWM 09/04/20 09/04/20 Benzonatate [Tessalon] 100 mg PO DAILY 12/11/20 12/11/20 - Allergies Allergies/Adverse Reactions: Allergies Allergy/AdvReac Type Severity Reaction Status Date / Time amoxicillin trihydrate * Allergy Itching Verified 12/11/20 16:54 [From Augmentin] clopidogrel bisulfate * Allergy Itching Verified 12/11/20 16:54 [From Plavix] iodine Allergy Nausea Verified 12/11/20 16:54 meperidine HCl * Allergy Nausea Verified 12/11/20 16:54 [From Demerol] oxybutynin Allergy Itching Verified 12/11/20 16:54 potassium clavulanate * Allergy Itching Verified 12/11/20 16:54 [From Augmentin] rosiglitazone maleate * Allergy Itching Verified 12/11/20 16:54 [From Avandia] exenatide [From Byetta] AdvReac Unknown Verified 12/11/20 16:54 - Social History Does the pt smoke?: No Smoking Status: Never smoker Does the pt drink ETOH?: Yes Does the pt have substance abuse?: No PD ED PE NORMAL - Vitals Vital signs reviewed: Yes - General General: Alert and oriented X 3, No acute distress - Abdomen Abdomen: Soft, Non tender - Back Back: No CVA TTP, No spinal TTP - Derm Derm: Normal color, Warm and dry - Neuro Neuro: Alert and oriented X 3, Normal speech Results - Vitals Vitals: Vital Signs - 24 hr 12/11/20 12/11/20 16:49 20:00 Temperature 36.8 C Heart Rate 70 71 Respiratory 18 18 Rate Blood Pressure 139/54 H 117/68 O2 Saturation 94 95 Oxygen O2 Source Room air - Labs Labs: Laboratory Tests 12/11/20 12/11/20 19:45 19:45 WBC 10.2 RBC 4.36 Hgb 11.8 L Hct 36.2 L MCV 83.0 MCH 27.1 MCHC 32.6 RDW 15.9 H Plt Count 268 MPV 10.5 Neut # (Auto) 7.1 H Lymph # (Auto) 1.9 Wilkinson # (Auto) 0.8 Eos # (Auto) 0.4 Baso # (Auto) 0.1 Absolute Nucleated RBC 0.00 Nucleated RBC % 0.0 Sodium 140 Potassium 4.0 Chloride 103 Carbon Dioxide 25 Anion Gap 12.0 BUN 27 H Creatinine 1.1 H Estimated GFR (MDRD) 48 L Glucose 116 H Calcium 9.2 PD MEDICAL DECISION MAKING - ED course ED course: This is a postmenopausal woman with new vaginal bleeding and a strong family history for uterine cancer. Ultrasound demonstrates vascular mass in the cervix and enlarged uterus. Discussed with her that although the distinct etiology cannot be identified tonight cancer is a distinct possibility and close follow- up is necessary for tissue biopsy and she verbalizes understanding. Departure - Departure Disposition: 01 Home, Self Care Clinical Impression: Post-menopausal bleeding, Cervical mass Condition: Good Record reviewed to determine appropriate education?: Yes Follow-Up: [facility] [Provider Group] Comments: As discussed, the source of the vaginal bleeding tonight is likely the vascular mass in the cervix. You will need to follow-up with the radiology physician next week for further evaluation and treatment and likely endometrial or cervical biopsy, potentially followed or in addition to hysterectomy. Call Monday to schedule the next available appointment.
[2020-12-11 19:51] LABS: BASOPHILS # (AUTO) 0.1 10^3/uL (0.0-0.1); BASOPHILS % (AUTO) 0.6 %; EOSINOPHILS # (AUTO) 0.4 10^3/uL (0.0-0.7); EOSINOPHILS % (AUTO) 3.8 %; HCT - HEMATOCRIT 36.2 % (37.0-47.0); HGB - HEMOGLOBIN 11.8 g/dL (12.0-16.0); LYMPHOCYTES # (AUTO) 1.9 10^3/uL (1.5-3.5); LYMPHOCYTES % (AUTO) 18.2 %; MEAN CORPUSCULAR HEMOGLOBIN 27.1 pg (27.0-31.0); MEAN CORPUSCULAR HGB CONC 32.6 g/dL (32.0-36.0); MEAN PLATELET VOLUME 10.5 fL (7.9-10.8); MONOCYTES # (AUTO) 0.8 10^3/uL (0.0-1.0); MONOCYTES % (AUTO) 7.9 %; NEUTROPHILS # (AUTO) 7.1 10^3/uL (1.5-6.6); NEUTROPHILS % (AUTO) 69.2 %; PLT - PLATELET COUNT 268 10^3/uL (130-450); RED BLOOD COUNT 4.36 10^6/uL (4.20-5.40); RED CELL DISTRIBUTION WIDTH 15.9 % (12.0-15.0); WHITE BLOOD COUNT 10.2 x10^3/uL (4.8-10.8)
[2020-12-11 20:00] LABS: CALCIUM 9.2 mg/dL (8.5-10.3); CREATININE 1.1 mg/dL (0.4-1.0)
--- NOTE | 2020-12-11 21:47 | Ultrasound Report ---
PROCEDURE: Pelvic w/Transvag+Doppler Comp INDICATIONS: vaginal bleeding TECHNIQUE: Real-time scanning was performed of the pelvic organs, with image documentation. Additional endovagi nal scanning was necessary due to incomplete visualization of the adnexal and endometrial structures by transabdominal scanning. COMPARISON: None. FINDINGS: There is an echogenic vascular mass within the cervix measuring approximately 2.0 x 4.1 x 4.6 cm, non specific. Enlarged uterus measuring 3.4 x 4.4 x 11.3 cm. No uterine mass identified. Coarsened uterine echotext ure. Markedly thickened endometrium measuring up to 14 mm. Normal size and appearance of both ovaries with no ovarian or adnexal mass. IMPRESSION: Enlarged uterus with markedly thickened endometrium for a patient of this age. Findings are concernin g for endometrial carcinoma. A echogenic and vascular mass within the cervical canal is suspicious fo r involvement of the cervix by endometrial carcinoma. Gynecologic referral, direct visualization, and tissue sampling are recommended. Reviewed by: Alvino Pozo MD on 12/11/2020 9:45 PM PDT Approved by: Alvino Pozo MD on 12/11/2020 9:45 PM PDT Station ID: [id number]
[2020-12-11 22:02] VITALS: BP 157/89
== END 2020-12-11 22:01 | disposition home or self-care (01) ==
LOC: ED 16:34
DX: N95.0 Postmenopausal bleeding (principal); N88.8 Other specified noninflammatory disorders of cervix uteri; R93.89 Abnormal findings on diagnostic imaging of other specified body structures; Z80.49 Family history of malignant neoplasm of other genital organs; I10 Essential (primary) hypertension; E11.9 Type 2 diabetes mellitus without complications; Z79.4 Long term (current) use of insulin; Z86.711 Personal history of pulmonary embolism; Z79.01 Long term (current) use of anticoagulants
CPT/HCPCS: 36415; 80048; 85025; 93975; 99284

== ENCOUNTER 2021-01-06 17:21 | Outpatient (CLI) | payer MEDICARE, OTHER ==
--- NOTE | 2021-01-07 17:59 | CT Report ---
PROCEDURE: Abdomen/Pelvis WO INDICATIONS: ENDOMETRIAL CA TECHNIQUE: Noncontrast 5 mm thick sections acquired from the diaphragms to the symphysis. 5 mm coronal and sagi ttal reformats were then performed. For radiation dose reduction, the following was used: automated exposure control, adjustment of mA and/or kV according to patient size. COMPARISON: None. FINDINGS: Image quality: Quality of visualization for tumor workup is limited by absence of both oral and intra venous contrast.. ABDOMEN: Lung bases: Lung bases are clear except for a an ovoid nodule measuring 4 x 9 mm seen at the lateral right lower lung, anatomically within the lateral segment right middle lobe seen on series 4 image 1 .. Heart size is normal. Solid organs: Liver and spleen are normal in size. Gallbladder has been previously resected Pancre as is normal in contours. No new adrenal nodules and the previously identified right adrenal nodule at the apex of the gland is unchanged. Kidneys are normal in size, without hydronephrosis or nephrol ithiasis but there are what appear to be scattered renal cortical cysts incompletely evaluated by thi s noncontrast study. Several of these appear to measure slightly above water in density and for this reason follow-up by renal ultrasound is recommended. Peritoneum and bowel: Unenhanced bowel loops demonstrate normal wall thickness and caliber. No free fluid or air. Nodes and vessels: There is a new finding of left periaortic retroperitoneal adenopathy by size crite juliana these are seen at and below the level of the left kidney. There are seen to the left of midline. Aorta and inferior vena cava are normal in caliber. Miscellaneous: No ventral hernias. PELVIS: Genitourinary: Bladder wall thickness is normal. Miscellaneous: No inguinal hernias but left-sided adenopathy retroperitoneal adenopathy extends from the abdomen and pelvis along the left external iliac node chain. Again, absence of contrast renders exact size of these somewhat difficult to establish but these were not previously present and do appe ar to represent malignant adenopathy in this clinical circumstance.. Bones: No suspicious bony lesions. No vertebral body compression fractures. IMPRESSION: 1. There is a ovoid peripheral right lower lung pulmonary nodule worrisome for representing early met astatic disease within the lung parenchyma, measuring up to 4 x 9 mm. Follow-up chest CT likely is wa rranted for more accurate assessment given that this was seen only at the upper most imaging of the p ortion of the abdomen study that extended into the lower chest. 2. Quality of visualization is limited by the absence of both oral and intravenous contrast. For exam ple, it is not possible to establish presence of mildly proteinaceous cysts versus solid lesions at t he kidneys where at least several of the rounded masses are considered almost certainly cysts. Bilate ral renal ultrasound is recommended to assist in differentiation between cystic versus solid unless f ollow-up contrast enhanced study will be performed. 3. There is a definite finding of new malignant-appearing adenopathy along the left periaortic retrop eritoneum and extending into the pelvis along the left external iliac artery no change. Scattered nod es in this area measuring up to 1.5-2.0 cm in short axis dimension. These have been demarcated on e gong image set for clinician reviewed. 4. Uterus appears present, internal characterization of the uterus by noncontrast CT scanning is not possible. Depending on the clinical status related to contrast administration follow-up by abdominal/ pelvic MR scanning with contrast may be warranted. Reviewed by: Ki Mcadams MD on 01/07/2021 5:58 PM PDT Approved by: Ki Mcadams MD on 01/07/2021 5:58 PM PDT Station ID: [id number]
== END 2021-01-06 17:22 | disposition home or self-care (01) ==
LOC: DI 17:21
PROVIDERS: ATTEND Obstetrics & Gynecology
DX: C54.1 Malignant neoplasm of endometrium (principal); R59.0 Localized enlarged lymph nodes; R91.1 Solitary pulmonary nodule

== ENCOUNTER 2021-02-08 10:44 | Emergency (ER) | payer MEDICARE, OTHER ==
[2021-02-08] MEDS ORDERED: SODIUM CHLORIDE 0.9% 1,000 ML IV STA (11:55)
--- NOTE | 2021-02-08 12:23 | ED Physician Documentation ---
History of Present Illness - Stated complaint Stated Complaint: WEAKNESS, HX CERVICAL CA - Chief complaint Chief Complaint: General - History obtained from History obtained from: Patient - History of Present Illness Timing: Today Pain level max: 0 Pain level now: 0 - Additonal information Additional information: Patient is a 80-year-old female who presents to the emergency department stating she has been worked up for cervical cancer, stage III or IV. She states she has a port placement and a lymph node biopsy scheduled for tomorrow. She has had intermittent vaginal bleeding over the past 2 months, started bleeding again last night and was concerned about being anemic so she came in for evaluation today. No bleeding today. She states she has felt lightheaded and short of breath recently. Worse with exertion, nothing makes it better. No fevers. No chills. No cough. No nausea or vomiting. Review of Systems Constitutional: denies: Fever, Chills GI: denies: Vomiting, Diarrhea Skin: denies: Rash Musculoskeletal: denies: Neck pain, Back pain Neurologic: denies: Headache PD PAST MEDICAL HISTORY - Past Medical History Cardiovascular: Hypertension, High cholesterol, Pulmonary embolism, Arrhythmia (first/second degree heart block) Respiratory: Asthma, Sleep apnea, CPAP use Endocrine/Autoimmune: Type 2 diabetes GI: GERD, Hiatal hernia, Colon polyps : Incontinence, Other HEENT: None Psych: Depression Musculoskeletal: Fibromyalgia, Chronic back pain Derm: None - Past Surgical History Past Surgical History: Yes General: Cholecystectomy, Appendectomy, Colonoscopy, EGD Ortho: Spine surgery Cardiovascular: Coronary stent HEENT: Cataracts - Present Medications Home Medications: Ambulatory Orders Medication Instructions Recorded Confirmed Fesoterodine Fumarate [Toviaz] 8 mg PO DAILY 03/25/14 09/04/20 Furosemide [Lasix] 40 mg ORAL DAILY 03/25/14 09/04/20 Insulin Glargine [Lantus] 44 units SUBQ BID 03/25/14 09/04/20 Insulin Lispro [Humalog] 50 - 60 units SUBQ DAILY 03/25/14 09/04/20 Losartan [Cozaar] 25 mg ORAL DAILY 03/25/14 09/04/20 Montelukast [Singulair] 10 mg ORAL DAILY 03/25/14 09/04/20 Pantoprazole Sodium 40 mg ORAL DAILY 03/25/14 09/04/20 Sertraline [Zoloft] 50 mg ORAL DAILY 03/25/14 09/04/20 LORazepam [Lorazepam] 1 mg PO QPM PRN 03/26/14 09/04/20 Mirabegron [Myrbetriq] 50 tab PO DAILY 10/07/14 09/04/20 HYDROcod/ACETAM 5/325 [[place] 5/325] 1 - 2 ea PO Q6H PRN #15 tablet 06/25/17 09/04/20 Albuterol Sulfate [Proair Hfa 1 - 2 puffs INH Q4H PRN 09/04/20 09/04/20 Inhaler] Amlodipine Besylate [Norvasc] 10 mg PO DAILY 09/04/20 09/04/20 Apixaban [Eliquis] 5 mg PO BID 09/04/20 09/04/20 Atorvastatin Calcium 40 mg PO QPM 09/04/20 09/04/20 Cholecalciferol [Vitamin D3] 5,000 unit PO DAILY 09/04/20 09/04/20 Clobetasol/Calcipotriene 1 applic TP PRN PRN 09/04/20 09/04/20 [Calcipotr 0.005%-Clobeta 0.05%] Fluticasone/Vilanterol [Breo 1 each IH DAILY 09/04/20 09/04/20 Ellipta 100-25 Mcg INH] Lactobacillus Acidophilus 1 each PO DAILY 09/04/20 09/04/20 [Probiotic Acidophilus] Magnesium Oxide [Magnesium] 400 mg PO BID 09/04/20 09/04/20 Nitroglycerin [Nitrostat] 0.4 mg SL Q5MIN PRN 09/04/20 09/04/20 Nystatin/Triamcin 1 applic TP PRN PRN 09/04/20 09/04/20 [Nystatin-Triamcinolone Cream] [place]-3S/Dha/Epa/Fish Oil [Fish 2 each PO DAILY 09/04/20 09/04/20 Oil 1,200 mg Softgel] metFORMIN [Glucophage] 500 mg PO BIDWM 09/04/20 09/04/20 Benzonatate [Tessalon] 100 mg PO DAILY 12/11/20 12/11/20 - Allergies Allergies/Adverse Reactions: Allergies Allergy/AdvReac Type Severity Reaction Status Date / Time amoxicillin trihydrate * Allergy Itching Verified 02/08/21 11:09 [From Augmentin] clopidogrel bisulfate * Allergy Itching Verified 02/08/21 11:09 [From Plavix] iodine Allergy Nausea Verified 02/08/21 11:09 meperidine HCl * Allergy Nausea Verified 02/08/21 11:09 [From Demerol] oxybutynin Allergy Itching Verified 02/08/21 11:09 potassium clavulanate * Allergy Itching Verified 02/08/21 11:09 [From Augmentin] rosiglitazone maleate * Allergy Itching Verified 02/08/21 11:09 [From Avandia] exenatide [From Byetta] AdvReac Unknown Verified 02/08/21 11:09 - Social History Does the pt smoke?: No Smoking Status: Never smoker Does the pt drink ETOH?: Yes Does the pt have substance abuse?: No PD ED PE NORMAL - Vitals Vital signs reviewed: Yes - General General: Alert and oriented X 3, No acute distress - HEENT HEENT: Moist mucous membranes - Neck Neck: Supple, no meningeal sign - Cardiac Cardiac: RRR, Strong equal pulses - Respiratory Respiratory: No respiratory distress, Clear bilaterally - Abdomen Abdomen: Soft, Non tender, Non distended - Derm Derm: Warm and dry - Extremities Extremities: No edema - Neuro Neuro: Alert and oriented X 3 - Psych Psych: Normal mood, Normal affect Results - Vitals Vitals: Vital Signs - 24 hr 02/08/21 02/08/21 02/08/21 11:04 11:29 13:11 Temperature 36.3 C L 36.5 C Heart Rate 83 74 64 Respiratory 16 17 19 Rate Blood Pressure 142/57 H 164/78 H 107/31 L O2 Saturation 94 99 96 Oxygen O2 Source Room air - Labs Labs: Laboratory Tests 02/08/21 02/08/21 02/08/21 12:25 12:25 12:25 WBC 11.6 H RBC 3.33 L Hgb 8.5 L Hct 26.8 L MCV 80.5 L MCH 25.5 L MCHC 31.7 L RDW 17.6 H Plt Count 248 MPV 9.9 Neut # (Auto) 9.1 H Lymph # (Auto) 1.3 L [place] # (Auto) 0.7 Eos # (Auto) 0.3 Baso # (Auto) 0.1 Absolute Nucleated RBC 0.00 Nucleated RBC % 0.0 PT 16.6 H INR 1.5 H Sodium Potassium Chloride Carbon Dioxide Anion Gap BUN Creatinine Estimated GFR (MDRD) Glucose Calcium Blood Type O POSITIVE Antibody Screen NEGATIVE 02/08/21 12:25 WBC RBC Hgb Hct MCV MCH MCHC RDW Plt Count MPV Neut # (Auto) Lymph # (Auto) [place] # (Auto) Eos # (Auto) Baso # (Auto) Absolute Nucleated RBC Nucleated RBC % PT INR Sodium 140 Potassium 4.0 Chloride 102 Carbon Dioxide 25 Anion Gap 13.0 BUN 24 H Creatinine 1.0 Estimated GFR (MDRD) 53 L Glucose 106 H Calcium 9.5 Blood Type Antibody Screen PD MEDICAL DECISION MAKING - ED course Complexity details: reviewed results, re-evaluated patient, considered differential, d/w patient ED course: Patient did have a drop in her hemoglobin. She is still above the transfusion threshold. Not significantly dyspneic or weak at this time. Discussed the case with Dr. Serrano, hematology, who recommends follow-up in the clinic in 2 days for a recheck of her hemoglobin hematocrit. Patient is not actively bleeding here. Patient counseled regarding signs and symptoms for which I believe and urgent re-evaluation would be necessary. Patient with good understanding of and agreement to plan and is comfortable going home at this time This document was made in part using voice recognition software. While efforts are made to proofread this document, sound alike and grammatical errors may occur. Departure - Departure Disposition: 01 Home, Self Care Clinical Impression: Anemia Qualifiers: Anemia type: unspecified type Qualified Code(s): D64.9 - Anemia, unspecified Condition: Good Instructions: ED Anemia Type Not Specified Follow-Up: LEMUEL MUNGUIA MD [Provider Admit Priv/Credential] - Comments: Follow-up with Dr. Munguia's office on Monday for a repeat blood count. They will determine at that time if you need a blood transfusion or not. I spoke with Dr. Serrano today. This should not effect your procedure tomorrow. Discharge Date/Time: 02/08/21 14:16
[2021-02-08 12:35] LABS: BASOPHILS # (AUTO) 0.1 10^3/uL (0.0-0.1); BASOPHILS % (AUTO) 0.4 %; EOSINOPHILS # (AUTO) 0.3 10^3/uL (0.0-0.7); EOSINOPHILS % (AUTO) 2.5 %; HCT - HEMATOCRIT 26.8 % (37.0-47.0); HGB - HEMOGLOBIN 8.5 g/dL (12.0-16.0); LYMPHOCYTES # (AUTO) 1.3 10^3/uL (1.5-3.5); LYMPHOCYTES % (AUTO) 11.5 %; MEAN CORPUSCULAR HEMOGLOBIN 25.5 pg (27.0-31.0); MEAN CORPUSCULAR HGB CONC 31.7 g/dL (32.0-36.0); MEAN CORPUSCULAR VOLUME 80.5 fL (81.0-99.0); MEAN PLATELET VOLUME 9.9 fL (7.9-10.8); MONOCYTES # (AUTO) 0.7 10^3/uL (0.0-1.0); MONOCYTES % (AUTO) 6.1 %; NEUTROPHILS # (AUTO) 9.1 10^3/uL (1.5-6.6); NEUTROPHILS % (AUTO) 78.9 %; PLT - PLATELET COUNT 248 10^3/uL (130-450); RED BLOOD COUNT 3.33 10^6/uL (4.20-5.40); RED CELL DISTRIBUTION WIDTH 17.6 % (12.0-15.0); WHITE BLOOD COUNT 11.6 x10^3/uL (4.8-10.8)
[2021-02-08 12:37] LABS: INR 1.5 (0.8-1.2); PT - PROTHROMBIN TIME 16.6 secs (9.9-12.6)
[2021-02-08 12:40] LABS: CALCIUM 9.5 mg/dL (8.5-10.3)
[2021-02-08 13:14] VITALS: BP 107/31
== END 2021-02-08 14:16 | disposition home or self-care (01) ==
LOC: ED 10:44
DX: D64.9 Anemia, unspecified (principal); I10 Essential (primary) hypertension; Z86.711 Personal history of pulmonary embolism; Z79.01 Long term (current) use of anticoagulants; E11.9 Type 2 diabetes mellitus without complications; Z79.4 Long term (current) use of insulin
CPT/HCPCS: 36415; 80048; 85025; 85610; 86850; 86900; 86901; 99283; 99284

== ENCOUNTER 2021-02-10 10:40 | Emergency (ER) | payer MEDICARE, OTHER ==
--- NOTE | 2021-02-10 11:41 | ED Physician Documentation ---
History of Present Illness - Stated complaint Stated Complaint: FEMALE - Chief complaint Chief Complaint: Abd Pain - Additonal information Additional information: 80-year-old female presents the emergency department for chief complaint of dyspnea on exertion and severe vaginal bleeding. She is currently being worked up for cervical cancer suspected stage III or stage IV. She has had a port placement as well as lymph node biopsy completed yesterday. Pending results for further treatment plan. She does have a history of atrial fib and had been taking Eliquis but stopped a few days before the port was placed. She thinks that she took her Eliquis dose last night however. She states that since December she has been having vaginal spotting that initially got heavy and slowed for the first few weeks of January but became heavier again the last 2 weeks. She was seen in this ER 2 days ago for feelings of weakness and dyspnea on exertion. Hemoglobin at that time was 8.5. She has not had any syncope no chest pain. Review of Systems Constitutional: denies: Fever, Chills Ears: reports: Reviewed and negative Nose: reports: Reviewed and negative Throat: reports: Reviewed and negative Cardiac: denies: Chest pain / pressure, Palpitations, Pedal edema Respiratory: reports: Dyspnea. denies: Cough, Hemoptysis, Wheezing GI: denies: Abdominal Pain, Nausea, Vomiting : reports: Vaginal bleeding Skin: reports: Reviewed and negative Musculoskeletal: reports: Reviewed and negative Neurologic: reports: Reviewed and negative PD PAST MEDICAL HISTORY - Past Medical History Past Medical History: Yes Cardiovascular: Hypertension, High cholesterol, Pulmonary embolism, Arrhythmia Respiratory: Asthma, Sleep apnea, CPAP use Endocrine/Autoimmune: Type 2 diabetes GI: GERD, Hiatal hernia, Colon polyps : Incontinence, Other HEENT: None Psych: Depression Musculoskeletal: Fibromyalgia, Chronic back pain Derm: None Other Past Medical History: Cervial cancer - Past Surgical History Past Surgical History: Yes General: Cholecystectomy, Appendectomy, Colonoscopy, EGD Ortho: Spine surgery Cardiovascular: Coronary stent HEENT: Cataracts - Present Medications Home Medications: Ambulatory Orders Medication Instructions Recorded Confirmed Fesoterodine Fumarate [Toviaz] 8 mg PO DAILY 03/25/14 02/10/21 Furosemide [Lasix] 20 mg ORAL DAILY 03/25/14 02/10/21 Insulin Glargine [Lantus] 40 units SUBQ BID 03/25/14 02/10/21 Insulin Lispro [Humalog] 50 - 60 units SUBQ PRN PRN 03/25/14 02/10/21 Losartan [Cozaar] 25 mg ORAL DAILY 03/25/14 02/10/21 Montelukast [Singulair] 10 mg ORAL DAILY 03/25/14 02/10/21 Pantoprazole Sodium 40 mg ORAL DAILY 03/25/14 02/10/21 Sertraline [Zoloft] 1.5 tab ORAL DAILY PM 03/25/14 02/10/21 LORazepam [Lorazepam] 1 mg PO QPM PRN 03/26/14 02/10/21 Mirabegron [Myrbetriq] 50 tab PO DAILY 10/07/14 02/10/21 Albuterol Sulfate [Proair Hfa 1 - 2 puffs INH Q4H PRN 09/04/20 02/10/21 Inhaler] Amlodipine Besylate [Norvasc] 10 mg PO DAILY 09/04/20 02/10/21 Apixaban [Eliquis] 5 mg PO BID 09/04/20 02/10/21 Atorvastatin Calcium 40 mg PO QPM 09/04/20 02/10/21 Cholecalciferol [Vitamin D3] 5,000 unit PO DAILY 09/04/20 02/10/21 Fluticasone/Vilanterol [Breo 1 each IH DAILY 09/04/20 02/10/21 Ellipta 100-25 Mcg INH] Lactobacillus Acidophilus 1 each PO DAILY 09/04/20 02/10/21 [Probiotic Acidophilus] Magnesium Oxide [Magnesium] 400 mg PO BID 09/04/20 02/10/21 [place]-3S/Dha/Epa/Fish Oil [Fish 2 each PO DAILY 09/04/20 02/10/21 Oil 1,200 mg Softgel] metFORMIN [Glucophage] 500 mg PO BIDWM 09/04/20 02/10/21 allopurinoL [Zyloprim] 300 mg PO DAILY 02/10/21 02/10/21 - Allergies Allergies/Adverse Reactions: Allergies Allergy/AdvReac Type Severity Reaction Status Date / Time amoxicillin trihydrate * Allergy Itching Verified 02/10/21 10:52 [From Augmentin] clopidogrel bisulfate * Allergy Itching Verified 02/10/21 10:52 [From Plavix] iodine Allergy Nausea Verified 02/10/21 10:52 meperidine HCl * Allergy Nausea Verified 02/10/21 10:52 [From Demerol] oxybutynin Allergy Itching Verified 02/10/21 10:52 potassium clavulanate * Allergy Itching Verified 02/10/21 10:52 [From Augmentin] rosiglitazone maleate * Allergy Itching Verified 02/10/21 10:52 [From Avandia] exenatide [From Byetta] AdvReac Unknown Verified 02/10/21 10:52 - Social History Does the pt smoke?: No Smoking Status: Never smoker Does the pt drink ETOH?: Yes Does the pt have substance abuse?: No - Immunizations Immunizations are current?: Yes PD ED PE EXPANDED - General General: Alert, No acute distress, Other (Obese.) - Cardiac Cardiac: Irregularly irregular, Murmur Present, Radial strong equal, Pedal strong equal, Cap refill < 2 sec - Respiratory Respiratory: Clear to ausultation brit. No: Distress - Abdomen Abdomen: Normal Bowel sounds. No: Tender to palpation - Derm Derm: Normal color, Warm and dry - Neuro Neuro: Alert and Oriented X 3, CNII-XII intact - GCS Eye Opening: Spontaneous Motor: Obeys Commands Verbal: Oriented Total: 15 Results - Vitals Vitals: Vital Signs - 24 hr 02/10/21 02/10/21 02/10/21 10:52 11:15 13:25 Temperature 37 C Heart Rate 61 79 60 Respiratory 20 20 24 Rate Blood Pressure 167/41 H 164/55 H 176/87 H O2 Saturation 96 96 94 02/10/21 02/10/21 02/10/21 15:15 15:40 15:50 Temperature 36.5 C 36.8 C 36.8 C Heart Rate 49 L 43 L 50 L Respiratory 21 20 23 Rate Blood Pressure 167/53 H 157/52 H 162/59 H O2 Saturation 02/10/21 02/10/21 17:00 17:28 Temperature 37.8 C Heart Rate 51 L 59 L Respiratory 24 24 Rate Blood Pressure 159/50 H 159/50 H O2 Saturation 94 Oxygen O2 Source Room air - Labs Labs: Laboratory Tests 02/10/21 02/10/21 02/10/21 12:28 12:28 12:28 WBC 9.9 RBC 2.95 L Hgb 7.6 L Hct 23.9 L MCV 81.0 MCH 25.8 L MCHC 31.8 L RDW 17.8 H Plt Count 231 MPV 9.3 Neut # (Auto) 7.5 H Lymph # (Auto) 1.4 L [place] # (Auto) 0.7 Eos # (Auto) 0.3 Baso # (Auto) 0.0 Absolute Nucleated RBC 0.02 Nucleated RBC % 0.2 PT 18.9 H INR 1.7 H Sodium Potassium Chloride Carbon Dioxide Anion Gap BUN Creatinine Estimated GFR (MDRD) Glucose Calcium Blood Type O POSITIVE Antibody Screen NEGATIVE Crossmatch IS Only See Detail 02/10/21 02/10/21 12:28 17:57 WBC 11.3 H RBC 3.22 L Hgb 8.2 L Hct 27.7 L MCV 86.0 MCH 25.5 L MCHC 29.6 L RDW 17.6 H Plt Count 225 MPV 9.7 Neut # (Auto) Lymph # (Auto) [place] # (Auto) Eos # (Auto) Baso # (Auto) Absolute Nucleated RBC Nucleated RBC % PT INR Sodium 142 Potassium 3.9 Chloride 107 Carbon Dioxide 24 Anion Gap 11.0 BUN 26 H Creatinine 1.0 Estimated GFR (MDRD) 53 L Glucose 131 H Calcium 8.9 Blood Type Antibody Screen Crossmatch IS Only - Rads (name of study) cxr Radiology: Final report received (Cardiomegaly with cephalization of pulmonary vasculature and interstitial prominence concerning for fluid overload/CHF. Status post placement of right chest wall Port-A-Cath.) PD MEDICAL DECISION MAKING - ED course Complexity details: reviewed results, re-evaluated patient, d/w patient, d/w building consultant (Fabrice Gonzales; Nabil Centeno MD) ED course: 80-year-old female presents the emergency department for evaluation of vaginal bleeding in the setting of suspected on stage cervical cancer with worsening dys pnea and lightheadedness. Seen 2 days ago for similar. Hemoglobin at that time was 8.5 and today it is reduced to 7.6. Given the persistence of vaginal bleeding 1 unit PRBCs was ordered for infusion here in the ER. 1300 I have spoken with Dr. Gonzales on-call for LEARNING DEVELOPMENT SPECIALIST and asked for his evaluation to determine if there is a source of bleeding that could be treated here in the ER. 1310: I have spoken with Dr. Shereen Lemons Oncologist managing Mrs. López. At this time he would recommend that we proceed with a PRBC infusion for hemoglobin of 7.6. He is hopeful that Dr. Gonzales can find a bleeding lesion to cauterize. However once the PRBC infusion is completed patient is likely stable for discharge home with emergent return precautions discussed for worsening symptoms or bleeding. 1840: s/p 1 unit [facility] infusion hgb 8.2. Given CXR with signs of CHF and national blood shortage, will hold at 1 unit. Pt reports that her vaginal bleeding has stopped after being seen by Dr. Gonzales. Pt advised to stop eliquisas the risk of bleeding is greater than the risk of stroke at this time. Oncology office to f/u with pt tomorrow to arrange f/u and likely radiation therpay per Dr. Gonzales's notes. Pt aware and return precautions discussed Departure - Departure Disposition: Home, Self Care Clinical Impression: Anemia Qualifiers: Anemia type: iron deficiency Iron deficiency anemia type: chronic blood loss Qualified Code(s): D50.0 - Iron deficiency anemia secondary to blood loss (chronic) Cervical cancer Qualifiers: Malignant neoplasm of cervix location: endocervix Qualified Code(s): C53.0 - Malignant neoplasm of endocervix Condition: Stable Record reviewed to determine appropriate education?: Yes Comments: So you were seen in the ER today for severe anemia as well as vaginal bleeding in the setting of cervical cancer. Here in the emergency department you did receive 1 unit of red blood cells and your hemoglobin is now 8.2. You are also seen by our welt treater Dr. Calderón and he did do procedure at the bedside to help minimize the bleeding in your cervical area. We have discussed your case with Dr. Centeno your oncologist. You can anticipate that the office will be calling you tomorrow to arrange prompt follow-up for discussion of starting radiation therapy. I do advise that you discontinue taking the Eliquis that you are taking for your history of atrial fibrillation. The risk of bleeding right now is much higher than that risk of you having a stroke. There may be a time in the future where restarting anticoagulation can be considered but this should be discussed closely with your oncologist as well as your global account director. If at any point you feel that you are having worsening vaginal bleeding, you have fainting episodes worsening shortness of breath develop chest pain or shortness of air then please return immediately to the ER for a second naima luation.
[2021-02-10 12:36] LABS: BASOPHILS % (AUTO) 0.4 %; EOSINOPHILS # (AUTO) 0.3 10^3/uL (0.0-0.7); EOSINOPHILS % (AUTO) 2.5 %; HCT - HEMATOCRIT 23.9 % (37.0-47.0); HGB - HEMOGLOBIN 7.6 g/dL (12.0-16.0); LYMPHOCYTES # (AUTO) 1.4 10^3/uL (1.5-3.5); LYMPHOCYTES % (AUTO) 13.6 %; MEAN CORPUSCULAR HEMOGLOBIN 25.8 pg (27.0-31.0); MEAN CORPUSCULAR HGB CONC 31.8 g/dL (32.0-36.0); MEAN PLATELET VOLUME 9.3 fL (7.9-10.8); MONOCYTES # (AUTO) 0.7 10^3/uL (0.0-1.0); MONOCYTES % (AUTO) 7.4 %; NEUTROPHILS # (AUTO) 7.5 10^3/uL (1.5-6.6); NEUTROPHILS % (AUTO) 75.3 %; NRBC ABSOLUTE COUNT (AUTO) 0.02 x10^3/uL; NUCLEATED RED BLOOD CELLS AUTO 0.2 /100WBC; PLT - PLATELET COUNT 231 10^3/uL (130-450); RED BLOOD COUNT 2.95 10^6/uL (4.20-5.40); RED CELL DISTRIBUTION WIDTH 17.8 % (12.0-15.0); WHITE BLOOD COUNT 9.9 x10^3/uL (4.8-10.8)
[2021-02-10 12:41] LABS: INR 1.7 (0.8-1.2); PT - PROTHROMBIN TIME 18.9 secs (9.9-12.6)
[2021-02-10 12:45] LABS: CALCIUM 8.9 mg/dL (8.5-10.3); POTASSIUM 3.9 mmol/L (3.5-5.0)
--- NOTE | 2021-02-10 16:18 | XRAY Report ---
PROCEDURE: Chest 1 View X-Ray INDICATIONS: ? Port placement/access TECHNIQUE: One view of the chest was acquired. COMPARISON: 04/15/2020 02/25/2018 FINDINGS: Surgical changes and devices: Right chest wall Port-A-Cath. Port-A-Cath tip projects over the atrioca janny junction.. Lungs and pleura: No pleural effusions or pneumothorax. There is cephalization of pulmonary vasculat ure and interstitial prominence suggesting CHF. Mediastinum: Mediastinal contours appear normal. Heart is enlarged. Bones and chest wall: No suspicious bony lesions. Overlying soft tissues appear unremarkable. IMPRESSION: 1. Cardiomegaly with cephalization of pulmonary vasculature and interstitial prominence concerning fo r fluid overload/CHF. 2. Status post placement of right chest wall Port-A-Cath. Reviewed by: Louann Newsome MD, PhD on 02/10/2021 4:17 PM PDT Approved by: Louann Newsome MD, PhD on 02/10/2021 4:17 PM PDT Station ID: [id number]
--- NOTE | 2021-02-10 17:16 | HISTORY & PHYSICAL EXAMINATION ---
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 She was referred to [facility] to a Dr. Robert Mesa for evaluation. She is also under the care of a Dr. Malik Centeno. While in the ED she had a CBC done because of vaginal bleeding. Her hemoglobin was 7.6 with hematocrit of 23.9 her platelets were 231. She is currently on a blood thinner because of atrial fibrillation which she took last night. Speculum examination showed a cervix with active oozing from it there was irregularity is noted on the cervix itself. Clots were cleaned from the cervix itself and then Monsel solution was applied with pressure. After about 3 or 4 applications her bleeding has appeared to stop. Following discussion with emergency room physician patient will be transfused at least 1 unit and maybe 2 depending on the blood supply. I discussed her care with Dr. Mesa as well as Dr. Centeno. Dr. Mesa recommended that she have either interventional radiology or local radiation. Upon discussing with Dr. Centeno he felt that she he could get her in tomorrow or in the near future for intracervical radiation. We have neither of those services here at this time. We will send her home with instructions should the bleeding become heavy that she needs to return. With holding her anticoagulant is somewhat problematic in that she has atrial fibrillation but if she takes it she will probably bleed again from her cervix.
[2021-02-10 17:29] VITALS: BP 159/50
[2021-02-10 18:03] LABS: HCT - HEMATOCRIT 27.7 % (37.0-47.0); HGB - HEMOGLOBIN 8.2 g/dL (12.0-16.0); MEAN CORPUSCULAR HEMOGLOBIN 25.5 pg (27.0-31.0); MEAN CORPUSCULAR HGB CONC 29.6 g/dL (32.0-36.0); MEAN PLATELET VOLUME 9.7 fL (7.9-10.8); RED BLOOD COUNT 3.22 10^6/uL (4.20-5.40); RED CELL DISTRIBUTION WIDTH 17.6 % (12.0-15.0); WHITE BLOOD COUNT 11.3 x10^3/uL (4.8-10.8)
== END 2021-02-10 18:59 | disposition home or self-care (01) ==
LOC: ED 10:40
DX: C53.0 Malignant neoplasm of endocervix (principal); D50.0 Iron deficiency anemia secondary to blood loss (chronic); I10 Essential (primary) hypertension; E11.9 Type 2 diabetes mellitus without complications; Z79.4 Long term (current) use of insulin
CPT/HCPCS: 36415; 36430; 71045; 80048; 85025; 85027; 85610; 86850; 86900; 86901; 86920; 96374; 99284; 99285; P9016

== ENCOUNTER 2021-02-11 09:43 | Emergency (ER) | payer MEDICARE, OTHER ==
[2021-02-11] MEDS ORDERED: SODIUM CHLORIDE 0.9% 1,000 ML IV STA (10:22)
--- NOTE | 2021-02-11 11:07 | XRAY Report ---
PROCEDURE: Chest 1 View X-Ray INDICATIONS: chest pain TECHNIQUE: One view of the chest was acquired. COMPARISON: 02/10/2021 FINDINGS: Surgical changes and devices: Right-sided portacatheter.. Lungs and pleura: No pleural effusions or pneumothorax. Moderate patchy bilateral perihilar and righ t basilar airspace opacity, increased from prior examination. Mediastinum: Mediastinal contours appear normal. Heart size is mildly enlarged. Bones and chest wall: No suspicious bony lesions. Overlying soft tissues appear unremarkable. IMPRESSION: Bilateral pneumonia versus edema. Reviewed by: Sukhdev Infante MD on 02/11/2021 11:06 AM PDT Approved by: Sukhdev Infante MD on 02/11/2021 11:06 AM PDT Station ID: [id number]
[2021-02-11 11:17] LABS: BASOPHILS % (AUTO) 0.3 %; EOSINOPHILS # (AUTO) 0.2 10^3/uL (0.0-0.7); EOSINOPHILS % (AUTO) 1.8 %; HCT - HEMATOCRIT 25.6 % (37.0-47.0); HGB - HEMOGLOBIN 8.1 g/dL (12.0-16.0); LYMPHOCYTES # (AUTO) 1.2 10^3/uL (1.5-3.5); MEAN CORPUSCULAR HEMOGLOBIN 25.6 pg (27.0-31.0); MEAN CORPUSCULAR HGB CONC 31.6 g/dL (32.0-36.0); MEAN CORPUSCULAR VOLUME 80.8 fL (81.0-99.0); MEAN PLATELET VOLUME 9.8 fL (7.9-10.8); MONOCYTES # (AUTO) 0.8 10^3/uL (0.0-1.0); MONOCYTES % (AUTO) 6.6 %; NEUTROPHILS # (AUTO) 9.3 10^3/uL (1.5-6.6); NEUTROPHILS % (AUTO) 80.3 %; NRBC ABSOLUTE COUNT (AUTO) 0.02 x10^3/uL; NUCLEATED RED BLOOD CELLS AUTO 0.2 /100WBC; PLT - PLATELET COUNT 217 10^3/uL (130-450); RED BLOOD COUNT 3.17 10^6/uL (4.20-5.40); RED CELL DISTRIBUTION WIDTH 17.9 % (12.0-15.0); WHITE BLOOD COUNT 11.5 x10^3/uL (4.8-10.8)
[2021-02-11 11:25] LABS: INR 1.7 (0.8-1.2); PT - PROTHROMBIN TIME 18.1 secs (9.9-12.6)
--- NOTE | 2021-02-11 11:33 | ED Physician Documentation ---
History of Present Illness - Stated complaint Stated Complaint: FEMALE /SOA - Chief complaint Chief Complaint: General - History obtained from History obtained from: Patient, Family - Additonal information Additional information: Patient returns to the emergency department with chief complaint of shortness of breath and "I am here to get my other unit of blood transfused". Patient states she was seen yesterday and was given 1 unit of blood after being found to be anemic after having some vaginal bleeding. This occurs in the setting of cervical cancer for which the patient is being worked up and treated by Dr. Malik Centeno of oncology. The patient was seen by Dr. Gonzales of gynecology in the emergency department yesterday and He did not find a distinct lesion, but diffuse changes related to the patient's cervical cancer. The case had been discussed with Dr. Centeno, who stated that the patient could be seen by him today or in the near future for focused radiation treatment. The patient returned home and states that she had one episode of noticing what appeared to be a large amount of blood in the toilet bowl after urinating. However, she did not have any blood leakage onto her underwear and only noticed streak of blood here and there when she wiped after using the bathroom thereafter. Patient states she return here because she was told if she had any further bleeding, she could come back to the emergency department and get a second unit of blood. It appears the patient's hemoglobin was 7.6 yesterday, but that Dr. Centeno had felt that the patient would benefit from a transfusion, and so she was given a unit. After this, her hemoglobin was 8.2. Patient states she has been generally weak but that this is not worse today. She does admit to not taking her Lasix for 3 days because she was busy and did not want to have to be interrupted by having to try to find a bathroom constantly. She finally took a dose this morning for the first time. No other complaints at this time. She states she is not currently bleeding from her vagina as far she knows. Review of Systems Ten Systems: 10 systems reviewed and negative Constitutional: reports: Reviewed and negative Eyes: reports: Reviewed and negative Ears: reports: Reviewed and negative Nose: reports: Reviewed and negative Throat: reports: Reviewed and negative Cardiac: reports: Reviewed and negative Respiratory: reports: Reviewed and negative GI: reports: Reviewed and negative : reports: Vaginal bleeding Skin: reports: Reviewed and negative Musculoskeletal: reports: Reviewed and negative Neurologic: reports: Reviewed and negative Psychiatric: reports: Reviewed and negative Endocrine: reports: Reviewed and negative Immunocompromised: reports: Reviewed and negative PD PAST MEDICAL HISTORY - Past Medical History Past Medical History: Yes Cardiovascular: Hypertension, High cholesterol, Pulmonary embolism, Arrhythmia Respiratory: Asthma, Sleep apnea, CPAP use Endocrine/Autoimmune: Type 2 diabetes GI: GERD, Hiatal hernia, Colon polyps 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: Other : Incontinence, Other HEENT: None Psych: Depression Musculoskeletal: Fibromyalgia, Chronic back pain Derm: None Other Past Medical History: cervical cancer - Past Surgical History Past Surgical History: Yes General: Cholecystectomy, Appendectomy, Colonoscopy, EGD Ortho: Spine surgery Cardiovascular: Coronary stent HEENT: Cataracts - Present Medications Home Medications: Ambulatory Orders Medication Instructions Recorded Confirmed Fesoterodine Fumarate [Toviaz] 8 mg PO DAILY 03/25/14 02/11/21 Furosemide [Lasix] 20 mg ORAL DAILY 03/25/14 02/11/21 Insulin Glargine [Lantus] 40 units SUBQ BID 03/25/14 02/11/21 Insulin Lispro [Humalog] 50 - 60 units SUBQ PRN PRN 03/25/14 02/11/21 Losartan [Cozaar] 25 mg ORAL DAILY 03/25/14 02/11/21 Montelukast [Singulair] 10 mg ORAL DAILY 03/25/14 02/11/21 Pantoprazole Sodium 40 mg ORAL DAILY 03/25/14 02/11/21 Sertraline [Zoloft] 1.5 tab ORAL DAILY PM 03/25/14 02/11/21 LORazepam [Lorazepam] 1 mg PO QPM PRN 03/26/14 02/11/21 Mirabegron [Myrbetriq] 50 tab PO DAILY 10/07/14 02/11/21 Albuterol Sulfate [Proair Hfa 1 - 2 puffs INH Q4H PRN 09/04/20 02/11/21 Inhaler] Amlodipine Besylate [Norvasc] 10 mg PO DAILY 09/04/20 02/11/21 Apixaban [Eliquis] 5 mg PO BID 09/04/20 02/11/21 Atorvastatin Calcium 40 mg PO QPM 09/04/20 02/11/21 Cholecalciferol [Vitamin D3] 5,000 unit PO DAILY 09/04/20 02/11/21 Fluticasone/Vilanterol [Breo 1 each IH DAILY 09/04/20 02/11/21 Ellipta 100-25 Mcg INH] Lactobacillus Acidophilus 1 each PO DAILY 09/04/20 02/11/21 [Probiotic Acidophilus] Magnesium Oxide [Magnesium] 400 mg PO BID 09/04/20 02/11/21 [place]-3S/Dha/Epa/Fish Oil [Fish 2 each PO DAILY 09/04/20 02/11/21 Oil 1,200 mg Softgel] metFORMIN [Glucophage] 500 mg PO BIDWM 09/04/20 02/11/21 allopurinoL [Zyloprim] 300 mg PO DAILY 02/10/21 02/11/21 Azithromycin [Zithromax] 0 mg PO DAILY #6 tablet 02/11/21 - Allergies Allergies/Adverse Reactions: Allergies Allergy/AdvReac Type Severity Reaction Status Date / Time amoxicillin trihydrate * Allergy Itching Verified 02/11/21 10:01 [From Augmentin] clopidogrel bisulfate * Allergy Itching Verified 02/11/21 10:01 [From Plavix] iodine Allergy Nausea Verified 02/11/21 10:01 meperidine HCl * Allergy Nausea Verified 02/11/21 10:01 [From Demerol] oxybutynin Allergy Itching Verified 02/11/21 10:01 potassium clavulanate * Allergy Itching Verified 02/11/21 10:01 [From Augmentin] rosiglitazone maleate * Allergy Itching Verified 02/11/21 10:01 [From Avandia] exenatide [From Byetta] AdvReac Unknown Verified 02/11/21 10:01 - Social History Does the pt smoke?: No Smoking Status: Never smoker Does the pt drink ETOH?: Yes Does the pt have substance abuse?: No - Immunizations Immunizations are current?: Yes PD ED PE NORMAL - Vitals Vital signs reviewed: Yes - General General: Alert and oriented X 3, No acute distress, Well developed/nourished - HEENT HEENT: Atraumatic, PERRL - Neck Neck: Supple, no meningeal sign - Cardiac Cardiac: RRR, No murmur - Respiratory Respiratory: No respiratory distress, Clear bilaterally - Abdomen Abdomen: Soft, Non tender, Non distended - Derm Derm: Normal color, Warm and dry, No rash - Extremities Extremities: No deformity, No edema - Neuro Neuro: Alert and oriented X 3, 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, Normal speech - Psych Psych: Normal mood, Normal affect Results - Vitals Vitals: Vital Signs - 24 hr 02/11/21 02/11/21 02/11/21 09:54 11:10 12:00 Temperature 37.5 C 99.4 C H Heart Rate 59 L 57 L 56 L Respiratory 18 26 H 20 Rate Blood Pressure 161/67 H 170/80 H 149/57 H O2 Saturation 94 94 96 02/11/21 02/11/21 02/11/21 13:10 13:25 14:11 Temperature 36.4 C L 36.1 C L Heart Rate 57 L 60 63 Respiratory 16 20 19 Rate Blood Pressure 171/72 H 164/56 H 175/55 H O2 Saturation 100 02/11/21 02/11/21 02/11/21 15:00 15:30 16:30 Temperature 36.2 C L Heart Rate 57 L 56 L 58 L Respiratory 23 20 22 Rate Blood Pressure 165/70 H 161/57 H 172/81 H O2 Saturation 95 94 Oxygen O2 Source Room air - Labs Labs: Laboratory Tests 02/11/21 02/11/21 02/11/21 11:10 11:10 11:10 WBC 11.5 H RBC 3.17 L Hgb 8.1 L Hct 25.6 L MCV 80.8 L MCH 25.6 L MCHC 31.6 L RDW 17.9 H Plt Count 217 MPV 9.8 Neut # (Auto) 9.3 H Lymph # (Auto) 1.2 L [place] # (Auto) 0.8 Eos # (Auto) 0.2 Baso # (Auto) 0.0 Absolute Nucleated RBC 0.02 Nucleated RBC % 0.2 PT 18.1 H INR 1.7 H Sodium 142 Potassium 3.7 Chloride 106 Carbon Dioxide 23 Anion Gap 13.0 BUN 24 H Creatinine 1.0 Estimated GFR (MDRD) 53 L Glucose 110 H Calcium 8.7 Total Bilirubin 0.9 AST 38 ALT 13 Alkaline Phosphatase 90 B-Natriuretic Peptide Total Protein 7.0 Albumin 3.1 L Globulin 3.9 Albumin/Globulin Ratio 0.8 L Lipase 25 Blood Type Antibody Screen Crossmatch IS Only 02/11/21 02/11/21 02/11/21 11:10 11:22 16:08 WBC 14.1 H RBC 3.67 L Hgb 9.6 L Hct 30.6 L MCV 83.4 MCH 26.2 L MCHC 31.4 L RDW 18.0 H Plt Count 240 MPV 9.8 Neut # (Auto) 10.6 H Lymph # (Auto) 2.1 [place] # (Auto) 0.9 Eos # (Auto) 0.3 Baso # (Auto) 0.1 Absolute Nucleated RBC 0.04 Nucleated RBC % 0.3 PT INR Sodium Potassium Chloride Carbon Dioxide Anion Gap BUN Creatinine Estimated GFR (MDRD) Glucose Calcium Total Bilirubin AST ALT Alkaline Phosphatase B-Natriuretic Peptide 471 H Total Protein Albumin Globulin Albumin/Globulin Ratio Lipase Blood Type O POSITIVE Antibody Screen NEGATIVE Crossmatch IS Only See Detail - Rads (name of study) CXR Radiology: Final report received (d), EMP read indepedently, See rad report (Pulmonary edema vs pneumonia) PD MEDICAL DECISION MAKING - ED course Complexity details: reviewed results, re-evaluated patient, considered differential, d/w patient, d/w family ED course: The patient was worked up and found to have a hemoglobin of 8.1 today which was only slightly decreased from yesterday. She was given a unit of packed red blood cells as well as 20 mg of Lasix IV. Chest x-ray once again showed edema versus pneumonia, though patient reported no fever or new/worsening cough. Pt was given abs for potential pneumonia. On re-evaluation, pt was feeling better in bed, but still short of breath with exertion. She did feel the recovery time for this was a little shorter, though. Nonetheless, in light of her significant ARREDONDO and her CXR findings, I did offer admission to the hospital for fluid overload. However, after a long discussion with the pt and her daughter, it was ultimately determined that the pt greatly preferred to go home, because her is there. Daughter stated that pt could sleep in her recliner, and has a bedside commode. can get her what she needs, even though he has dementia. Daughter lives just a few minutes away. We have discussed doubling the Lasix for the next few days, and that pt should never skip her Lasix, especially for days in a row, again. We have discussed that pt may return if she changes her mind or worsens. Repeat Hgb 9.6. Departure - Departure Disposition: 01 Home, Self Care Clinical Impression: Anemia Qualifiers: Anemia type: unspecified type Qualified Code(s): D64.9 - Anemia, unspecified Congestive heart failure Qualifiers: Heart failure type: unspecified Heart failure chronicity: acute on chronic Qualified Code(s): I50.9 - Heart failure, unspecified Pneumonia Qualifiers: Pneumonia type: due to unspecified organism Laterality: unspecified laterality Lung location: lower lobe of lung Qualified Code(s): J18.9 - Pneumonia, unspecified organism Condition: Stable Instructions: ED Anemia Type Not Specified, ED CHF General, ED Pneumonia Adult Prescriptions: Azithromycin [Zithromax] 0 mg PO DAILY #6 tablet Comments: Your hemoglobin today was almost identical to your second level yesterday. Yesterday when you left the emergency department, you were at 8.2 and today, you are 8.1. Nonetheless, we have given you the second unit of blood to help get you closer to a normal value. You should be between 9 and 10 after the unit we gave you today, which is still anemic but certainly a solid improvement. It is very important that you reach out to Dr. Centeno's office to To plan to be seen in follow-up regarding your ongoing cervical bleeding. Yesterday, he expressed his wish to see you today or in the next few days, and if you have not heard from his office, then you need to get in touch with them. We have given you some extra diuretic today to help get some of the fluid off of your lungs. This will take a few days to finish working, so will not be an instantaneous process. It is very important that you do not skip doses of your Lasix, as you will get behind on managing the fluid in your body and it will begin to build up in your lungs, as you have seen yesterday and today. Please take a double dose of Lasix, 40 mg, each morning for the next 3 days to help your body catch up. Discharge Date/Time: 02/11/21 16:50
[2021-02-11 11:38] LABS: ALBUMIN 3.1 g/dL (3.2-5.5); ALBUMIN/GLOBULIN RATIO 0.8 (1.0-2.2); BILIRUBIN,TOTAL 0.9 mg/dL (0.2-1.0); CALCIUM 8.7 mg/dL (8.5-10.3); POTASSIUM 3.7 mmol/L (3.5-5.0)
[2021-02-11] MEDS ORDERED: FUROSEMIDE 20 MG/2 ML VIAL IVP STA (15:25)
[2021-02-11] MEDS ORDERED: cefTRIAXone 1 GM VIAL IM STA (15:33)
[2021-02-11] MEDS ORDERED: AZITHROMYCIN 250 MG TABLET PO STA (15:33)
[2021-02-11] MEDS ORDERED: LIDOCAINE 1% 2 ML VIAL MC ONE (15:33)
[2021-02-11] MEDS ORDERED: cefTRIAXone 1 GM in SODIUM CHLORIDE 0.9% MINIBAG 100 ML IV STA (15:41)
[2021-02-11] MEDS ORDERED: cefTRIAXone 1 GM VIAL IVP STA (15:43)
[2021-02-11 16:14] LABS: BASOPHILS # (AUTO) 0.1 10^3/uL (0.0-0.1); BASOPHILS % (AUTO) 0.4 %; EOSINOPHILS # (AUTO) 0.3 10^3/uL (0.0-0.7); HCT - HEMATOCRIT 30.6 % (37.0-47.0); HGB - HEMOGLOBIN 9.6 g/dL (12.0-16.0); LYMPHOCYTES # (AUTO) 2.1 10^3/uL (1.5-3.5); LYMPHOCYTES % (AUTO) 14.6 %; MEAN CORPUSCULAR HEMOGLOBIN 26.2 pg (27.0-31.0); MEAN CORPUSCULAR HGB CONC 31.4 g/dL (32.0-36.0); MEAN CORPUSCULAR VOLUME 83.4 fL (81.0-99.0); MEAN PLATELET VOLUME 9.8 fL (7.9-10.8); MONOCYTES # (AUTO) 0.9 10^3/uL (0.0-1.0); MONOCYTES % (AUTO) 6.5 %; NEUTROPHILS # (AUTO) 10.6 10^3/uL (1.5-6.6); NEUTROPHILS % (AUTO) 75.5 %; NRBC ABSOLUTE COUNT (AUTO) 0.04 x10^3/uL; NUCLEATED RED BLOOD CELLS AUTO 0.3 /100WBC; PLT - PLATELET COUNT 240 10^3/uL (130-450); RED BLOOD COUNT 3.67 10^6/uL (4.20-5.40); WHITE BLOOD COUNT 14.1 x10^3/uL (4.8-10.8)
[2021-02-11 17:02] VITALS: BP 172/81
== END 2021-02-11 16:50 | disposition home or self-care (01) ==
LOC: ED 09:43
DX: C53.9 Malignant neoplasm of cervix uteri, unspecified (principal); D64.9 Anemia, unspecified; I50.9 Heart failure, unspecified; J18.9 Pneumonia, unspecified organism; E11.9 Type 2 diabetes mellitus without complications; Z79.4 Long term (current) use of insulin
CPT/HCPCS: 36415; 36430; 71045; 80053; 83690; 83880; 85025; 85610; 86850; 86900; 86901; 86920; 93005; 96374; 96375; 99285; A9270; P9016

== ENCOUNTER 2021-02-13 20:57 | Outpatient (CLI) | payer MEDICARE, OTHER | END 2021-02-13 20:58 | disposition critical access hospital (66) | LOC: EMS 20:57 | DX: N93.9 Abnormal uterine and vaginal bleeding, unspecified (principal); R11.2 Nausea with vomiting, unspecified | CPT/HCPCS: A0425; A0429 ==

== ENCOUNTER 2021-02-13 21:15 | Emergency (ER) | payer MEDICARE, OTHER ==
[2021-02-13] MEDS ORDERED: ACETAMINOPHEN 325 MG TABLET PO STA (21:37)
[2021-02-13] MEDS ORDERED: SODIUM CHLORIDE 0.9% 1,000 ML IV STA (21:37)
[2021-02-13] MEDS ORDERED: NITROGLYCERIN SL 0.4 MG TABLET SL STA ×2 (21:48→23:47)
[2021-02-13] MEDS ORDERED: NITROGLYCERIN SL 0.4 MG TABLET SL ONE (21:52)
--- NOTE | 2021-02-13 21:52 | ED Physician Documentation ---
History of Present Illness - Stated complaint Stated Complaint: BLEEDING, STAGE 4 CA - Chief complaint Chief Complaint: Abd Pain - History obtained from History obtained from: Patient, Family (daughter) - Additonal information Additional information: 80yF, currently in treatment for PNA with zpack, also with active stage 4 cervical CA (heme onc Dr. Centeno at [facility]) p/w heavy vaginal bleeding i ntermittent this week, worsening today. soaked through 5 diapers. 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: Other : Incontinence, Other HEENT: None Psych: Depression Musculoskeletal: Fibromyalgia, Chronic back pain Derm: None - Past Surgical History Past Surgical History: Yes General: Cholecystectomy, Appendectomy, Colonoscopy, EGD Ortho: Spine surgery Cardiovascular: Coronary stent HEENT: Cataracts - Present Medications Home Medications: Ambulatory Orders Medication Instructions Recorded Confirmed Fesoterodine Fumarate [Toviaz] 8 mg PO DAILY 03/25/14 02/13/21 Furosemide [Lasix] 20 mg ORAL DAILY 03/25/14 02/13/21 Insulin Glargine [Lantus] 40 units SUBQ BID 03/25/14 02/13/21 Insulin Lispro [Humalog] 50 - 60 units SUBQ PRN PRN 03/25/14 02/13/21 Losartan [Cozaar] 25 mg ORAL DAILY 03/25/14 02/13/21 Montelukast [Singulair] 10 mg ORAL DAILY 03/25/14 02/13/21 Pantoprazole Sodium 40 mg ORAL DAILY 03/25/14 02/13/21 Sertraline [Zoloft] 1.5 tab ORAL DAILY PM 03/25/14 02/13/21 LORazepam [Lorazepam] 1 mg PO QPM PRN 03/26/14 02/13/21 Mirabegron [Myrbetriq] 50 tab PO DAILY 10/07/14 02/13/21 Albuterol Sulfate [Proair Hfa 1 - 2 puffs INH Q4H PRN 09/04/20 02/13/21 Inhaler] Amlodipine Besylate [Norvasc] 10 mg PO DAILY 09/04/20 02/13/21 Apixaban [Eliquis] 5 mg PO BID 09/04/20 02/13/21 Atorvastatin Calcium 40 mg PO QPM 09/04/20 02/13/21 Cholecalciferol [Vitamin D3] 5,000 unit PO DAILY 09/04/20 02/13/21 Fluticasone/Vilanterol [Breo 1 each IH DAILY 09/04/20 02/13/21 Ellipta 100-25 Mcg INH] Lactobacillus Acidophilus 1 each PO DAILY 09/04/20 02/13/21 [Probiotic Acidophilus] Magnesium Oxide [Magnesium] 400 mg PO BID 09/04/20 02/13/21 [place]-3S/Dha/Epa/Fish Oil [Fish 2 each PO DAILY 09/04/20 02/13/21 Oil 1,200 mg Softgel] metFORMIN [Glucophage] 500 mg PO BIDWM 09/04/20 02/13/21 allopurinoL [Zyloprim] 300 mg PO DAILY 02/10/21 02/13/21 Azithromycin [Zithromax] 0 mg PO DAILY #6 tablet 02/11/21 02/13/21 - Allergies Allergies/Adverse Reactions: Allergies Allergy/AdvReac Type Severity Reaction Status Date / Time amoxicillin trihydrate * Allergy Itching Verified 02/13/21 21:19 [From Augmentin] clopidogrel bisulfate * Allergy Itching Verified 02/13/21 21:19 [From Plavix] iodine Allergy Nausea Verified 02/13/21 21:19 meperidine HCl * Allergy Nausea Verified 02/13/21 21:19 [From Demerol] oxybutynin Allergy Itching Verified 02/13/21 21:19 potassium clavulanate * Allergy Itching Verified 02/13/21 21:19 [From Augmentin] rosiglitazone maleate * Allergy Itching Verified 02/13/21 21:19 [From Avandia] exenatide [From Byetta] AdvReac Unknown Verified 02/13/21 21:19 - Social History Does the pt smoke?: No Smoking Status: Never smoker Does the pt drink ETOH?: Yes Does the pt have substance abuse?: No - Immunizations Immunizations are current?: Yes PD ED PE NORMAL - Vitals Vital signs reviewed: Yes - General General: Alert and oriented X 3, No acute distress - HEENT HEENT: Atraumatic, PERRL - Neck Neck: Supple, no meningeal sign - Cardiac Cardiac: Other (Borderline tachycardic rate, regular rhythm) - Respiratory Respiratory: Other (Coarse bilateral breath sounds) - Abdomen Abdomen: Non tender, Non distended - Female Female : Other (Blood clots evident at the vaginal introitus) - Derm Derm: Normal color, Warm and dry - Extremities Extremities: No deformity - Neuro Neuro: No motor deficit, No sensory deficit - Psych Psych: Normal mood, Normal affect Results - Vitals Vitals: Vital Signs - 24 hr 02/13/21 02/13/21 02/13/21 21:19 21:57 22:27 Temperature 38.0 C H Heart Rate 105 H 102 H 101 H Respiratory 18 20 21 Rate Blood Pressure 145/86 H 143/58 H 135/75 H O2 Saturation 99 95 93 02/13/21 02/13/21 02/13/21 22:30 23:00 23:30 Temperature 36.7 C Heart Rate 98 106 H Respiratory 18 16 Rate Blood Pressure 135/75 H 139/78 H 138/57 H O2 Saturation 98 99 02/13/21 02/13/21 02/13/21 23:40 23:45 23:55 Temperature 37.4 C 37.1 C 36.9 C Heart Rate 106 H 102 H 102 H Respiratory 20 22 22 Rate Blood Pressure 138/57 H 110/55 L 131/70 H O2 Saturation 02/14/21 02/14/21 02/14/21 00:00 00:41 01:00 Temperature 36.9 C Heart Rate 100 96 62 Respiratory 18 22 24 Rate Blood Pressure 135/68 H 111/60 111/60 O2 Saturation 93 93 98 02/14/21 02/14/21 02/14/21 01:44 02:13 02:37 Temperature 36.6 C Heart Rate 89 86 90 Respiratory 21 12 17 Rate Blood Pressure 111/60 115/55 L 118/60 O2 Saturation 93 90 L 96 02/14/21 02/14/21 03:06 03:31 Temperature 36.7 C Heart Rate 77 78 Respiratory 21 18 Rate Blood Pressure 134/63 H 134/63 H O2 Saturation 92 Oxygen O2 Source Room air - EKG (time done) 213 Rate: Rate (enter#) (100) Rhythm: Other (junctional tachycardia with LAD) Ischemia: Other (mild <0.2mm STD in lateral leads) 2211 Rate: Rate (enter#) (106) Rhythm: Other (junctional tachycardia, LVH) Ischemia: Other (STD improved in lateral leads) - Labs Labs: Laboratory Tests 02/13/21 02/13/21 02/13/21 22:03 22:03 22:03 WBC 13.7 H RBC 2.45 L Hgb 6.4 L* Hct 20.5 L MCV 83.7 MCH 26.1 L MCHC 31.2 L RDW 19.1 H Plt Count 177 MPV 10.0 Neut # (Auto) 11.0 H Lymph # (Auto) 1.3 L [place] # (Auto) 0.9 Eos # (Auto) 0.3 Baso # (Auto) 0.1 Absolute Nucleated RBC 0.05 Nucleated RBC % 0.4 PT INR APTT Sodium 140 Potassium 4.1 Chloride 107 Carbon Dioxide 23 Anion Gap 10.0 BUN 28 H Creatinine 1.1 H Estimated GFR (MDRD) 48 L Glucose 189 H Lactic Acid 2.1 Calcium 8.2 L Total Bilirubin 0.5 AST 36 ALT 13 Alkaline Phosphatase 79 Total Protein 5.8 L Albumin 2.6 L Globulin 3.2 Albumin/Globulin Ratio 0.8 L Urine Color Urine Clarity Urine pH Ur Specific [place] Urine Protein Urine Glucose (UA) Urine Ketones Urine Occult Blood Urine Nitrite Urine Bilirubin Urine Urobilinogen Ur Leukocyte Esterase Urine RBC Urine WBC Ur Squamous Epith Cells Urine Bacteria Urine Culture Comments Nasal Adenovirus (PCR) Nasal B. parapertussis DNA (PCR) Nasal Coronavir 229E PCR Nasal Coronavir HKU1 PCR Nasal Coronavir NL63 PCR Nasal Coronavir OC43 PCR Nasal Enterovir/Rhinovir PCR Nasal Influenza B PCR Nasal Influenza A PCR Nasal Parainfluen 1 PCR Nasal Parainfluen 2 PCR Nasal Parainfluen 3 PCR Nasal Parainfluen 4 PCR Nasal RSV (PCR) Nasal B.pertussis DNA PCR Nasal C.pneumoniae (PCR) Sanya Human Metapneumo PCR Nasal M.pneumoniae (PCR) Nasal SARS-CoV-2 (PCR) 02/13/21 02/13/21 02/14/21 22:03 22:27 01:52 WBC RBC Hgb Hct MCV MCH MCHC RDW Plt Count MPV Neut # (Auto) Lymph # (Auto) [place] # (Auto) Eos # (Auto) Baso # (Auto) Absolute Nucleated RBC Nucleated RBC % PT 18.5 H INR 1.7 H APTT 25.9 Sodium Potassium Chloride Carbon Dioxide Anion Gap BUN Creatinine Estimated GFR (MDRD) Glucose Lactic Acid 1.4 Calcium Total Bilirubin AST ALT Alkaline Phosphatase Total Protein Albumin Globulin Albumin/Globulin Ratio Urine Color Urine Clarity Urine pH Ur Specific [place] Urine Protein Urine Glucose (UA) Urine Ketones Urine Occult Blood Urine Nitrite Urine Bilirubin Urine Urobilinogen Ur Leukocyte Esterase Urine RBC Urine WBC Ur Squamous Epith Cells Urine Bacteria Urine Culture Comments Nasal Adenovirus (PCR) NOT DETECTED Nasal B. parapertussis DNA (PCR) NOT DETECTED Nasal Coronavir 229E PCR NOT DETECTED Nasal Coronavir HKU1 PCR NOT DETECTED Nasal Coronavir NL63 PCR NOT DETECTED Nasal Coronavir OC43 PCR NOT DETECTED Nasal Enterovir/Rhinovir PCR NOT DETECTED Nasal Influenza B PCR NOT DETECTED Nasal Influenza A PCR NOT DETECTED Nasal Parainfluen 1 PCR NOT DETECTED Nasal Parainfluen 2 PCR NOT DETECTED Nasal Parainfluen 3 PCR NOT DETECTED Nasal Parainfluen 4 PCR NOT DETECTED Nasal RSV (PCR) NOT DETECTED Nasal B.pertussis DNA PCR NOT DETECTED Nasal C.pneumoniae (PCR) NOT DETECTED [place] Human Metapneumo PCR NOT DETECTED Nasal M.pneumoniae (PCR) NOT DETECTED Nasal SARS-CoV-2 (PCR) NOT DETECTED 02/14/21 03:10 WBC RBC Hgb Hct MCV MCH MCHC RDW Plt Count MPV Neut # (Auto) Lymph # (Auto) [place] # (Auto) Eos # (Auto) Baso # (Auto) Absolute Nucleated RBC Nucleated RBC % PT INR APTT Sodium Potassium Chloride Carbon Dioxide Anion Gap BUN Creatinine Estimated GFR (MDRD) Glucose Lactic Acid Calcium Total Bilirubin AST ALT Alkaline Phosphatase Total Protein Albumin Globulin Albumin/Globulin Ratio Urine Color YELLOW Urine Clarity CLEAR Urine pH 5.0 Ur Specific [place] 1.015 Urine Protein NEGATIVE Urine Glucose (UA) NEGATIVE Urine Ketones NEGATIVE Urine Occult Blood NEGATIVE Urine Nitrite NEGATIVE Urine Bilirubin NEGATIVE Urine Urobilinogen 0.2 (NORMAL) Ur Leukocyte Esterase NEGATIVE Urine RBC 0-5 Urine WBC 0-3 Ur Squamous Epith Cells RARE Squamous Urine Bacteria Rare Urine Culture Comments NOT INDICATED Nasal Adenovirus (PCR) Nasal B. parapertussis DNA (PCR) Nasal Coronavir 229E PCR Nasal Coronavir HKU1 PCR Nasal Coronavir NL63 PCR Nasal Coronavir OC43 PCR Nasal Enterovir/Rhinovir PCR Nasal Influenza B PCR Nasal Influenza A PCR Nasal Parainfluen 1 PCR Nasal Parainfluen 2 PCR Nasal Parainfluen 3 PCR Nasal Parainfluen 4 PCR Nasal RSV (PCR) Nasal B.pertussis DNA PCR Nasal C.pneumoniae (PCR) [place] Human Metapneumo PCR Nasal M.pneumoniae (PCR) Nasal SARS-CoV-2 (PCR) PD MEDICAL DECISION MAKING - ED course ED course: Note that patient experienced substernal CP and requested nitro (usually takes at home with relief). EKG done at 12:37 with lateral depression. CP relieved with nitro. d/w Dr. Martinez in regards to continued vaginal bleeding. she will see the patient. Discussed with Dr. Martinez who is trying to coordinate with OBSERVER GRAVITY PROSPECTING Onc at [facility] in regards to transfer. She will call me back. Dr. Martinez did a vaginal packing in the emergency department. She was unable to coordinate transfer but would like us to try to do ED-ED to [facility] where the patient's oncologist is located (Dr. Centeno) for possible embolization vs palliative radiation tomorrow. I will work on getting her transferred to [facility]. d/w transfer center and talked to ED doc Dr. Ernst. she requested I d/w Dr. Centeno's service prior to accepting transfer. Dr. Martinez, our hot mill observer, states that she d/w Dr. Darryl Damian at [facility] (floor attendant onc) who recommends possible palliative radiation tomorrow vs 2nd embolization. I d/w Dr. Martinez, medical oncologist nuclear monitoring technician who states this sounds like a reasonable plan and the patient should come to [facility] for further eval. Dr. Ernst, ED doc, accepts in transfer. Departure - Departure Disposition: 02 Transfer Acute Care Hosp Clinical Impression: Cervical cancer, Vaginal bleeding, Anemia, Fever, Pneumonia Condition: Stable Discharge Date/Time: 02/14/21 03:40
[2021-02-13 22:11] LABS: BASOPHILS # (AUTO) 0.1 10^3/uL (0.0-0.1); BASOPHILS % (AUTO) 0.4 %; EOSINOPHILS # (AUTO) 0.3 10^3/uL (0.0-0.7); EOSINOPHILS % (AUTO) 2.3 %; HCT - HEMATOCRIT 20.5 % (37.0-47.0); LYMPHOCYTES # (AUTO) 1.3 10^3/uL (1.5-3.5); LYMPHOCYTES % (AUTO) 9.2 %; MEAN CORPUSCULAR HEMOGLOBIN 26.1 pg (27.0-31.0); MEAN CORPUSCULAR HGB CONC 31.2 g/dL (32.0-36.0); MEAN CORPUSCULAR VOLUME 83.7 fL (81.0-99.0); MONOCYTES # (AUTO) 0.9 10^3/uL (0.0-1.0); MONOCYTES % (AUTO) 6.5 %; NEUTROPHILS % (AUTO) 80.5 %; NRBC ABSOLUTE COUNT (AUTO) 0.05 x10^3/uL; NUCLEATED RED BLOOD CELLS AUTO 0.4 /100WBC; PLT - PLATELET COUNT 177 10^3/uL (130-450); RED BLOOD COUNT 2.45 10^6/uL (4.20-5.40); RED CELL DISTRIBUTION WIDTH 19.1 % (12.0-15.0); WHITE BLOOD COUNT 13.7 x10^3/uL (4.8-10.8)
[2021-02-13] MEDS ORDERED: ONDANSETRON 4 MG/2 ML VIAL IVP STA (22:19)
[2021-02-13 22:20] LABS: HGB - HEMOGLOBIN 6.4 g/dL (12.0-16.0)
[2021-02-13 22:22] LABS: ALBUMIN 2.6 g/dL (3.2-5.5); ALBUMIN/GLOBULIN RATIO 0.8 (1.0-2.2); BILIRUBIN,TOTAL 0.5 mg/dL (0.2-1.0); CALCIUM 8.2 mg/dL (8.5-10.3); CREATININE 1.1 mg/dL (0.4-1.0); POTASSIUM 4.1 mmol/L (3.5-5.0); TOTAL PROTEIN 5.8 g/dL (6.7-8.2)
[2021-02-13 22:23] LABS: LACTIC ACID, VENOUS 2.1 mmol/L (0.5-2.2)
[2021-02-13 22:26] LABS: INR 1.7 (0.8-1.2); PT - PROTHROMBIN TIME 18.5 secs (9.9-12.6)
[2021-02-13 22:35] LABS: PARTIAL THROMBOPLASTIN TIME 25.9 secs (24.9-33.3)
[2021-02-13] MEDS ORDERED: SODIUM CHLORIDE 0.9% 250 ML IV STA (22:35)
[2021-02-14 00:22] LABS: B. PARAPERTUSSIS- RESP PCR PAN NOT DETECTED; B. PERTUSSIS- RESP PCR PANEL NOT DETECTED; C. PNEUMONIAE- RESP PCR PANEL NOT DETECTED; CORONAVIRUS 229E-RESP PCR NOT DETECTED; CORONAVIRUS HKU1-RESP PCR NOT DETECTED; CORONAVIRUS NL63-RESP PCR NOT DETECTED; CORONAVIRUS OC43-RESP PCR NOT DETECTED; HUMAN METAPNEUMOVIRUS NOT DETECTED; INFLUENZA A- RESP PCR PANEL NOT DETECTED; INFLUENZA B - RESP PCR PANEL NOT DETECTED; M. PNEUMONIAE- RESP PCR PANEL NOT DETECTED; PARAINFLUENZA VIRUS 1 NOT DETECTED; PARAINFLUENZA VIRUS 2 NOT DETECTED; PARAINFLUENZA VIRUS 3 NOT DETECTED; PARAINFLUENZA VIRUS 4 NOT DETECTED; RHINOVIRUS/ENTEROVIRUS NOT DETECTED; RSV- RESP PCR PANEL NOT DETECTED; SARS-CoV-2 -RESP PCR PANEL NOT DETECTED
[2021-02-14] MEDS ORDERED: HYDROmorphone 0.5 MG/0.5 ML SYRINGE IVP STA ×2 (00:31→02:37)
--- NOTE | 2021-02-14 00:33 | CONSULTATION NOTE ---
Referring Provider Name of Referring Provider:: Dr. 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 Patient presented from home via ambulance with heavy vaginal bleeding and SOB. She reports that she has soaked at least 5 Depends undergarments this evening as well as filled a toilet bowl with blood clots. She has presented to the ED for vaginal bleeding 4 times in the last 5 days. On 02/08/21, her Hgb was 8.5 and she was discharged with warning signs and a plan to see her Oncologist, Dr. Centeno. On 02/10/21, she presented again and was also symptomatic. Dr. Centeno was contacted and transfusion was recommended. Post transfusion Hgb was 8.2 after one unit PRBC. On 02/11/21, patient again presented with heavy vaginal bleeding. She was again symptomatic with a Hgb of 8.1. She was given another unit of PRBC and post- transfusion Hgb was 9.6. She had Monsels solution applied to her cervix in the ED and bleeding was thought to be controlled. Patient reported that she started to bleed again later that evening. The director of special education OBGYN had contacted Dr. Mesa, of Gynecologic Oncology at [facility]. who had been consulted regarding her care. He had recommended palliative radiation. Patient is apparently scheduled to see Rad Onc on 02/22/21. Also this week, patient has undergone PET CT and a cervical/supraclavicular lymph node biopsy for staging and port placement. Port is not functional at present per ED notes. Patientis SOB and orthopneic. She has had multiple episodes of angina for which she received nitroglycerin. History - Past Medical History Cardiovascular: reports: Hypertension, High cholesterol, Pulmonary embolism, Arrhythmia Respiratory: reports: Asthma, Sleep apnea, CPAP use Endocrine/Autoimmune: reports: Type 2 diabetes GI: reports: GERD, Hiatal hernia, Colon polyps WIRE STRANDER: reports: Other : reports: Incontinence, Other HEENT: reports: None Psych: reports: Depression Musculoskeletal: reports: Fibromyalgia, Chronic back pain Derm: reports: None MRSA Hx?: No - Past Surgical History General: reports: Cholecystectomy, Appendectomy, Colonoscopy, EGD Ortho: reports: Spine surgery Cardiovascular: reports: Coronary stent HEENT: reports: Cataracts Meds/Allgy - Home Medications Home Medications: Ambulatory Orders Medication Instructions Recorded Confirmed Fesoterodine Fumarate [Toviaz] 8 mg PO DAILY 03/25/14 02/13/21 Furosemide [Lasix] 20 mg ORAL DAILY 03/25/14 02/13/21 Insulin Glargine [Lantus] 40 units SUBQ BID 03/25/14 02/13/21 Insulin Lispro [Humalog] 50 - 60 units SUBQ PRN PRN 03/25/14 02/13/21 Losartan [Cozaar] 25 mg ORAL DAILY 03/25/14 02/13/21 Montelukast [Singulair] 10 mg ORAL DAILY 03/25/14 02/13/21 Pantoprazole Sodium 40 mg ORAL DAILY 03/25/14 02/13/21 Sertraline [Zoloft] 1.5 tab ORAL DAILY PM 03/25/14 02/13/21 LORazepam [Lorazepam] 1 mg PO QPM PRN 03/26/14 02/13/21 Mirabegron [Myrbetriq] 50 tab PO DAILY 10/07/14 02/13/21 Albuterol Sulfate [Proair Hfa 1 - 2 puffs INH Q4H PRN 09/04/20 02/13/21 Inhaler] Amlodipine Besylate [Norvasc] 10 mg PO DAILY 09/04/20 02/13/21 Apixaban [Eliquis] 5 mg PO BID 09/04/20 02/13/21 Atorvastatin Calcium 40 mg PO QPM 09/04/20 02/13/21 Cholecalciferol [Vitamin D3] 5,000 unit PO DAILY 09/04/20 02/13/21 Fluticasone/Vilanterol [Breo 1 each IH DAILY 09/04/20 02/13/21 Ellipta 100-25 Mcg INH] Lactobacillus Acidophilus 1 each PO DAILY 09/04/20 02/13/21 [Probiotic Acidophilus] Magnesium Oxide [Magnesium] 400 mg PO BID 09/04/20 02/13/21 Burnet-3S/Dha/Epa/Fish Oil [Fish 2 each PO DAILY 09/04/20 02/13/21 Oil 1,200 mg Softgel] metFORMIN [Glucophage] 500 mg PO BIDWM 09/04/20 02/13/21 allopurinoL [Zyloprim] 300 mg PO DAILY 02/10/21 02/13/21 Azithromycin [Zithromax] 0 mg PO DAILY #6 tablet 02/11/21 02/13/21 - Allergies Allergies/Adverse Reactions: Allergies Allergy/AdvReac Type Severity Reaction Status Date / Time amoxicillin trihydrate * Allergy Itching Verified 02/13/21 21:19 [From Augmentin] clopidogrel bisulfate * Allergy Itching Verified 02/13/21 21:19 [From Plavix] iodine Allergy Nausea Verified 02/13/21 21:19 meperidine HCl * Allergy Nausea Verified 02/13/21 21:19 [From Demerol] oxybutynin Allergy Itching Verified 02/13/21 21:19 potassium clavulanate * Allergy Itching Verified 02/13/21 21:19 [From Augmentin] rosiglitazone maleate * Allergy Itching Verified 02/13/21 21:19 [From Avandia] exenatide [From Byetta] AdvReac Unknown Verified 02/13/21 21:19 Review of Systems - Constitutional Constitutional: reports: Weakness - Cardiovascular Cariovascular: reports: Irregular heart rate, Chest pain, Edema, Lightheadedness, Orthopnea - Respiratory Respiratory: reports: Orthopnea, SOB at rest - Neurological Neurological: reports: General weakness - Hematologic/Lymphatic Hematologic/Lymphatic: reports: Anemia - Other Findings Other Findings: As per HPI and above, otherwise remaining systems are negative Exam - Vital Signs Reviewed Vital Signs: Yes Vital Signs: Vital Signs x48h Temp Pulse Resp BP Pulse Ox 02/14/21 00:00 98.5 F 100 18 135/68 H 93 02/13/21 23:55 98.5 F 102 H 22 131/70 H 02/13/21 23:45 98.7 F 102 H 22 110/55 L 02/13/21 23:40 99.3 F 106 H 20 138/57 H 02/13/21 23:30 106 H 16 138/57 H 99 02/13/21 23:00 98.1 F 98 18 139/78 H 98 02/13/21 22:30 135/75 H 08/07/21 22:27 101 H 21 135/75 H 93 02/13/21 21:57 102 H 20 143/58 H 95 02/13/21 21:19 100.4 F H 105 H 18 145/86 H 99 - Physical Exam General Appearance: positive: Moderate distress Respiratory: positive: Other (Actively using CPAP, unable to tolerate supine position) Cardiovascular: positive: Tachycardia Abdomen: positive: Non-tender, Other (soft) Skin: positive: Pallor Extremities: positive: Pedal edema Neurologic/Psychiatric: positive: Oriented x3 Comments/Other: WIRE STRANDER: Depends undergarments removes; soaked and heavy with blood in addition to clots. Active vaginal bleeding. NEFG. Normal BSUMA. Sepculum inserted, watery blood cleared form vault. Rectocele and redundancy of vaginal tissue. Exam limited by patient's poor tolerance of supine position and unable to maintain dorsal lithotomy postion. Fungating tumor mass seen at cervix. Thick laterl of Monsels solution applied. Monsels soaked vaginal packing placed in vagina. Conclusion/Plan - Diagnosis Diagnosis: Heavy vaginal bleeding 2/2 Stage III vs IV adenocarcinoma of the cervix - Lab Results Fish Bones: 02/13/21 22:03 02/13/21 22:03 - Other Other Results/Comments: Vaginal Bleeding in setting of advanced cervical cancer: -Monsels and vaginal packing placed as temporizing measure for control of blood loss -Patient actively undergoing transfusion with PRBC -Discussed case with Dr. Damian, of Gynecologic Oncology. Agrees with Dr. Mesa that patient needs wither palliative radiation or possibly embolization. Recommends treatment proceed in an urgent manner. Patient is currently under care of Dr. Centeno of Medical Oncology at [place] with plan to see Dr. Leroy of Radiation Oncology. -Packing is temporizing measure and without aforementioned intervention(s), patient will likely continue to bleed and will require additional transfusion. In addition, acute blood loss anemia causes additional strain on baseline cardiovascular and respiratory conditions. -Bed availability in region is limited. Attempting to coordinate transfer to appropriate level of care. More than 180 minutes were spent in assessing and treating patient, reviewing re cords, conferring with outside providers, and in coordination of care (given scarcity of in-patient beds in region)
[2021-02-14] MEDS ORDERED: cefTRIAXone 2 GM in SODIUM CHLORIDE 0.9% MINIBAG 100 ML IV STA (00:38)
[2021-02-14] MEDS ORDERED: AZITHROMYCIN INJ 500 MG in SODIUM CHLORIDE 0.9% 250 ML IV STA (00:39)
[2021-02-14] MEDS ORDERED: cefTRIAXone 2 GM VIAL ONE (01:27)
[2021-02-14 03:07] VITALS: BP 134/63
[2021-02-14] MEDS ORDERED: HYDROmorphone 1 MG/ML CARPUJECT IVP STA (03:24)
[2021-02-14 03:28] LABS: BILIRUBIN,URINE NEGATIVE (NEGATIVE); GLUCOSE, URINE (UA) NEGATIVE (NEGATIVE); KETONES,URINE (UA) NEGATIVE (NEGATIVE); LEUKOCYTE ESTERASE, URINE NEGATIVE (NEGATIVE); NITRITE,URINE NEGATIVE (NEGATIVE); OCCULT BLOOD,URINE NEGATIVE (NEGATIVE); PROTEIN,URINE NEGATIVE (NEGATIVE); UROBILINOGEN,URINE 0.2 (NORMAL) E.U./dL (NORMAL)
[2021-02-14 03:30] LABS: BACTERIA,URINE Rare /HPF (None Seen); CLARITY,URINE CLEAR (CLEAR); RBC,URINE 0-5 /HPF (0-5); SQUAMOUS EPITHELIAL CELL,UR RARE Squamous (<= Few); WBC,URINE 0-3 /HPF (0-5)
--- NOTE | 2021-02-14 08:00 | XRAY Report ---
PROCEDURE: Chest 1 View X-Ray INDICATIONS: pneumonia, cough,fever TECHNIQUE: One view of the chest was acquired. COMPARISON: 02/11/2021, 02/10/2021 FINDINGS: Surgical changes and devices: A stable right-sided chest port is seen. Lungs and pleura: No pleural effusions or pneumothorax. Mild generalized interstitial prominence can be seen. Mediastinum: Mediastinal contours appear normal. Heart size is mildly enlarged. Bones and chest wall: No suspicious bony lesions. Age-appropriate degenerative changes are seen. O verlying soft tissues appear unremarkable. IMPRESSION: No focal infiltrates are seen. Stable mild cardiomegaly and interstitial prominence. Please consider CHF. Note: No significant discrepancy from the preliminary report. Reviewed by: Stew Simental MD on 02/14/2021 6:59 AM SOTO Approved by: Stew Simental MD on 02/14/2021 6:59 AM SOTO Station ID: [id number]
== END 2021-02-14 03:40 | disposition short-term general hospital (02) ==
LOC: EDUNIT# → ED 21:15
DX: N93.8 Other specified abnormal uterine and vaginal bleeding (principal); C53.9 Malignant neoplasm of cervix uteri, unspecified; D64.9 Anemia, unspecified; J18.9 Pneumonia, unspecified organism; R50.9 Fever, unspecified; I10 Essential (primary) hypertension; Z86.711 Personal history of pulmonary embolism; Z79.01 Long term (current) use of anticoagulants; Z20.822 Contact with and (suspected) exposure to COVID-19
CPT/HCPCS: 36415; 36430; 71045; 80053; 81001; 83605; 85025; 85610; 85730; 87040; 87631; 93005; 96365; 96375; 96376; 99285; A9270; J1170; 0202U; 86850; 86900; 86901; 86920; 87086

== ENCOUNTER 2021-02-14 03:43 | Outpatient (CLI) | payer MEDICARE, OTHER | END 2021-02-14 03:44 | disposition short-term general hospital (02) | LOC: EMS 03:43 | PROVIDERS: ATTEND Emergency Medicine | DX: C53.9 Malignant neoplasm of cervix uteri, unspecified (principal); D64.9 Anemia, unspecified; N93.9 Abnormal uterine and vaginal bleeding, unspecified; J18.9 Pneumonia, unspecified organism | CPT/HCPCS: A0425; A0426 ==